=== PATIENT | male | born 1960 | race Caucasian/White ===

== ENCOUNTER 2022-02-25 10:21 | Inpatient (IN) | payer MEDICARE, SELFPAY ==
[2022-02-25] VITALS (32 sets, daily range): BP systolic 78–167; BP diastolic 40–96; PULSE 75–114; RESP 8–31; TEMP 34–37.1; O2SAT 90–100; BMI 33.9; BMI 31.1
--- NOTE | ~2022-02-25 | CT_ITS ---
EXAMINATION: CT HEAD WITHOUT CONTRAST CLINICAL INFORMATION: Altered mental status, respiratory arrest COMPARISON: None TECHNIQUE: Contiguous axial imaging was performed from the skull base to vertex without intravenous administration of contrast. This CT examination was performed using dose optimization techniques as appropriate, variously including the following: *Automated exposure control *Adjustment of mA and/or kV according to patient size (this includes techniques or standardized protocols for targeted exams where dose is matched to indication/reason for exam; i.e. extremities or head) *Use of iterative reconstruction technique DLP: 2568 mGy-cm FINDINGS: There is no evidence of acute intracranial hemorrhage or territorial infarction. No abnormal mass effect or midline shift is seen. Barr to white matter differentiation is well preserved. No extra-axial fluid collections are identified. The ventricles are normal in size. There is no abnormal attenuation within the brain parenchyma. The osseous structures and soft tissues are normal. There is partial opacification and mucosal thickening of the bilateral ethmoid air cells and right maxillary sinus. The mastoid air cells are well-aerated. CT/CT head/brain wo con IMPRESSION: No acute intracranial pathology.
--- NOTE | ~2022-02-25 | CT_ITS ---
EXAMINATION: CT ANGIOGRAM CHEST CLINICAL INFORMATION: Hemoptysis at tracheostomy site COMPARISON: Chest radiograph earlier today TECHNIQUE: Multiple axial images were obtained through the chest after the administration of 70 mL of Omnipaque 350 intravenous contrast. Extensive vascular post-processing including two-dimensional and three-dimensional reformatted images were created and reviewed on an independent workstation. This CT examination was performed using dose optimization techniques as appropriate, variously including the following: *Automated exposure control *Adjustment of mA and/or kV according to patient size (this includes techniques or standardized protocols for targeted exams where dose is matched to indication/reason for exam; i.e. extremities or head) *Use of iterative reconstruction technique DLP: 647 mGy-cm VASCULAR FINDINGS: The bolus is poor. Pulmonary arteries are better opacified than the thoracic aorta and its branches. An aortic aneurysm or dissection is not seen. Three-vessel branching pattern of the arch is present with a grossly patent great vessels. No enlarged bronchial arteries are seen. No active bleeding is seen. No pseudoaneurysms are identified around the tracheostomy. Although not carried out for evaluation of the pulmonary arteries, no large central emboli are seen. Distal vessels not well evaluated secondary to poor contrast bolus and motion artifact. NONVASCULAR FINDINGS: LUNGS: Bilateral lower lobe infiltrates/collapse/consolidation is seen. Similar findings present in the right upper lobe in the suprahilar region. MEDIASTINUM: Mediastinal widening seen on chest radiograph accounted for merely by mediastinal fat. Tracheostomy is present in good position. Above the tracheostomy entry site, there is a partially imaged tract seen which appears to have a radiopaque suture around it (see bates images). VASCULAR: PLEURA: There is no pleural effusion. No pleural mass or thickening. AXILLA: No lymphadenopathy. UPPER ABDOMEN: Large fluid-filled structure present in the left renal pelvis and radha may represent left-sided hydronephrosis. A parapelvic cyst would be another alternative. CT urography would be needed to differentiate between these 2. OSSEOUS STRUCTURES: Degenerative changes present in the spine. No bony destructive lesions CT/CT angio chest aorta IMPRESSION: 1. A cause for hemorrhage around the patient's tracheostomy site has not been found and there is no evidence of any active bleeding. No pseudoaneurysms or hypertrophied bronchial arteries are detected. 2. Bilateral lower lobe collapse/consolidation with right upper lobe suprahilar infiltrate as well. 3. Possible left-sided hydronephrosis as described above. Fleischner guidelines were followed.
--- NOTE | ~2022-02-25 | CT_ITS ---
EXAMINATION: CT ABDOMEN AND PELVIS WITH CONTRAST CLINICAL INFORMATION: Respiratory arrest. COMPARISON: None TECHNIQUE: Multidetector volumetric images were obtained from the superior aspect of the liver through the pubic symphysis following administration 85 mL of Omnipaque 350 intravenous contrast. Sagittal and coronal reformatted images were obtained on the technologist's workstation. Oral contrast: No This CT examination was performed using dose optimization techniques as appropriate, variously including the following: *Automated exposure control *Adjustment of mA and/or kV according to patient size (this includes techniques or standardized protocols for targeted exams where dose is matched to indication/reason for exam; i.e. extremities or head) *Use of iterative reconstruction technique DLP: 1125 mGy-cm FINDINGS: LUNG BASES: Refer to chest CTA report for detailed findings. LIVER, GALLBLADDER, AND BILIARY TREE: Diffuse decreased hepatic attenuation without focal abnormality. No gallbladder/biliary abnormality. PANCREAS: Unremarkable. SPLEEN: Unremarkable. ADRENAL GLANDS: Small left intrarenal calcifications and left adrenal nodule measuring 1.1 cm (image 31, series 20). KIDNEYS AND URETERS: Left kidney large peripelvic cysts measuring up to 9.1 cm (image 66, series 28). Left lower pole calculus/calcification measuring 0.3 cm (image 60, series 28). Interpolar right renal cyst measuring 1.1 cm (image 73, series 20). Mild bilateral perinephric stranding. Mild bilateral hydroureteronephrosis. BLADDER: Unremarkable. GASTROINTESTINAL TRACT: The stomach, small bowel and appendix are unremarkable. The colon proximal is unremarkable. Mild diverticulosis is seen distally without surrounding abnormality. The rectum is unremarkable. Mild hazy opacification in the mesentery without significant focal fluid collection. ABDOMINAL WALL: Very small fat-containing umbilical hernia. LYMPH NODES: Mildly enlarged external iliac lymph nodes bilaterally. A sales representative facility services lymph node on the right measures 1.3 cm (image 49, series 28). Mildly prominent infrarenal retroperitoneal lymph nodes. A precaval lymph node measures 1.1 cm in short axis (image 57, series 28). VASCULAR: Moderate atherosclerosis without significant dilatation. PELVIC VISCERA: Unremarkable. OSSEOUS STRUCTURES: Mild to moderate multilevel degenerative changes including degenerative disc disease and marginal osteophyte formation. No acute or suspicious abnormality. CT/CT abdomen pelvis w con IMPRESSION: 1. No significant acute intra-abdominal/pelvic abnormality. Mild mesenteric haziness is nonspecific. No focal fluid collection. 2. Hepatic steatosis. 3. Bilateral renal cyst demonstrating benign features not requiring follow-up. Nonobstructing left intrarenal calculus/calcification. 4. Mild distal colonic diverticulosis without evidence for acute diverticulitis. 5. Mildly prominent retroperitoneal and external iliac lymph nodes are not pathologically enlarged and may be reactive. 6. Left adrenal nodule is indeterminate, but statistically likely represents an adrenal adenoma.
--- NOTE | ~2022-02-25 | XR_ITS ---
EXAMINATION: XR CHEST CLINICAL INFORMATION: Hypoxia COMPARISON: 02/25/2022 TECHNIQUE: Frontal view of the chest was obtained. FINDINGS: Lung volumes are low. Patchy opacities at the lung bases. No pleural effusion or pneumothorax. The cardiomediastinal silhouette is prominent, unchanged. XR/XR chest 1V IMPRESSION: Patchy bibasilar opacities favor atelectasis. Pneumonia not excluded.
--- NOTE | ~2022-02-25 | US_ITS ---
EXAMINATION: US VENOUS ULTRASOUND WITH DOPPLER LOWER EXTREMITY, BILATERAL CLINICAL INFORMATION: History of DVT, history of laryngeal cancer COMPARISON: None TECHNIQUE: Ultrasound of the deep veins is performed from the hip to the calf with compression sonography and color and pulse Doppler assessment. Spectral analysis with color-flow imaging is performed. FINDINGS: RIGHT: There is normal venous compression and respiratory variation and augmented flow. The visualized common femoral vein, superficial femoral vein, profunda femoral vein, popliteal vein, and the trifurcation region shows no evidence of deep venous thrombosis. There is no significant popliteal fossa cyst. Several hypoechoic, reportedly firm nodules in the calf for example measuring 2.4 x 1.2 x 2.3 cm which appear to be contiguous with varicosities. LEFT: There is normal venous compression and respiratory variation and augmented flow. The visualized common femoral vein, superficial femoral vein, profunda femoral vein, popliteal vein, and the trifurcation region shows no evidence of deep venous thrombosis. There is no significant popliteal fossa cyst. Several hypoechoic, reportedly firm nodules in the calf for example measuring 2.1 x 1.0 x 1.5 cm which appear to be contiguous with varicosities. If the patient's symptoms persist, followup ultrasound in 5 days 7 days might be of value to exclude proximal propagation from a non-visualized calf vein. US/US venous duplex LE BI IMPRESSION: Several hypoechoic, reportedly from nodules in the bilateral calves measuring up to 2.4 cm in the right and 2.1 cm on the left, which on cine images appear to be contiguous with varicosities suggesting thrombosed superficial varicose veins, however recommend correlation with clinical exam and given malignancy consider short interval follow-up subsequent treatment to assess for resolution stability as another differential consideration could include lymph nodes. No DVT demonstrated in the bilateral lower extremity.
--- NOTE | ~2022-02-25 | XR_ITS ---
EXAMINATION: XR CHEST CLINICAL INFORMATION: Respiratory distress COMPARISON: None TECHNIQUE: Frontal view of the chest was obtained. FINDINGS: Heart size appears within normal limits given supine position. Mediastinum appears slightly widened which may also be secondary to supine position. Some bibasilar coarse reticulonodular markings are present, right greater than left, suspect chronic but no priors are available no lung masses, large effusion, consolidations or pneumothorax. XR/XR chest 1V IMPRESSION: No definite acute intrathoracic disease. Mediastinum appears slightly widened I suspect secondary to supine position.
--- NOTE | ~2022-02-25 | XR_ITS ---
EXAMINATION: XR CHEST CLINICAL INFORMATION: Severe hypoxemia COMPARISON: Previous chest x-moraima 02/28/2022 and chest CTA 02/25/2022 TECHNIQUE: Frontal view of the chest was obtained. FINDINGS: The cardiac and mediastinal contours are stable. There is bibasilar atelectasis or small infiltrates. This appears slightly improved from yesterday's exam. The lungs are otherwise clear. There is no pleural effusion or pneumothorax. There are degenerative changes of the spine. XR/XR chest 1V IMPRESSION: Improving atelectasis or small infiltrates at the lung bases
--- NOTE | ~2022-02-25 | CT_ITS ---
EXAMINATION: CT SOFT TISSUE NECK WITH CONTRAST CLINICAL INFORMATION: Trach valve. Hemoptysis a tracheostomy site described on the corresponding chest CTA. COMPARISON: CTA chest 02/25/2022. TECHNIQUE: Following the intravenous administration of 60 mL of Omnipaque 350 intravenous contrast, helical imaging was performed in the axial plane with generation of coronal and sagittal reformatted images. This CT examination was performed using dose optimization techniques as appropriate, variously including the following: *Automated exposure control *Adjustment of mA and/or kV according to patient size (this includes techniques or standardized protocols for targeted exams where dose is matched to indication/reason for exam; i.e. extremities or head) *Use of iterative reconstruction technique FINDINGS: A tracheostomy tube remains in place. This study is not diagnostic in assessing for sources of bleeding at the tracheostomy site as it is not an arterial phase CTA of the neck. There is edema and hematoma along the periphery of the tracheostomy insertion as well as a few small foci of subcutaneous gas. Stable soft tissue thickening along the periphery of the trachea below the tracheostomy tube resulting in narrowing of the trachea in this location. The parotid glands are homogeneous in attenuation. The submandibular glands are normal. The thyroid gland is normal. Postoperative findings status post total laryngectomy and neopharynx formation. Nonspecific soft tissue thickening along the periphery of the neopharynx and nonspecific edema dorsal to the neopharynx. Findings may be posttreatment related. Comparison to any outside imaging if available would be helpful in further assessment. The parapharyngeal fat is preserved. The carotid sheath vasculature opacify normally. There is a nonspecific rounded 1.2 cm long transaxial dimension lymph node within level IIA on the left. Given rounded morphology and history of total laryngectomy, consider PET to exclude a metastatic lymph node. Dependent atelectasis within the imaged lungs. The mastoid air cells and visualized portions of the paranasal sinuses are well-aerated. Multilevel cervical spondylosis including a disc osteophyte complex at C3-C4 resulting in suspected severe central canal stenosis and mass effect on the cervical spinal cord that can be correlated for clinical signs of cervical myelopathy and follow-up with MRI of the cervical spine as clinically indicated. The imaged portions of the brain parenchyma are unremarkable. CT/CT soft tissue neck w con IMPRESSION: - A tracheostomy tube remains in place. This study is not diagnostic in assessing for sources of bleeding at the tracheostomy site as it is not an arterial phase CTA of the neck. There is edema and hematoma along the periphery of the tracheostomy insertion as well as a few small foci of subcutaneous gas. Stable soft tissue thickening along the periphery of the trachea below the tracheostomy tube resulting in narrowing of the trachea in this location. - Postoperative findings status post total laryngectomy and neopharynx formation. Nonspecific soft tissue thickening along the periphery of the neopharynx and nonspecific edema dorsal to the neopharynx. Findings may be posttreatment related. Comparison to any outside imaging if available would be helpful in further assessment. - There is a nonspecific rounded 1.2 cm long transaxial dimension lymph node within level IIA on the left. Given rounded morphology and history of total laryngectomy, consider PET to exclude a metastatic lymph node. - Multilevel cervical spondylosis including a disc osteophyte complex at C3-C4 resulting in suspected severe central canal stenosis and mass effect on the cervical spinal cord that can be correlated for clinical signs of cervical myelopathy and follow-up with MRI of the cervical spine as clinically indicated.
[2022-02-25] MEDS: fentaNYL citrate/PF 100 MCG/2 ML VIAL 75 MCG IVPUSH (10:25)
[2022-02-25] MEDS: fentaNYL citrate/PF 100 MCG/2 ML VIAL 50 MCG IVPUSH (10:27)
--- NOTE | 2022-02-25 10:31 | ECG_ITS ---
Test Reason : fall Blood Pressure : / mmHG Vent. Rate : 100 BPM Atrial Rate : 100 BPM P-R Int : 176 ms QRS Dur : 100 ms QT Int : 372 ms P-R-T Axes : 037 -44 080 degrees QTc Int : 479 ms Normal sinus rhythm Left axis deviation Low voltage QRS Inferior infarct , age undetermined Abnormal ECG No previous ECGs available Referred By: Marii Chew Electronically Signed By:Rohith Diop
[2022-02-25] MEDS: Midazolam HCl/PF 2 MG/2 ML VIAL IVPUSH ×2 (10:35→18:11)
[2022-02-25] MEDS: Rocuronium Bromide 50 MG/5 ML VIAL IVPUSH (10:37)
--- NOTE | 2022-02-25 11:03 | PC.NURSE ---
PT BECAME ASYSTOLIC AT 1037 CPR WAS INITATED. SEE RESUSCITATION REPORT ROSC OBTAINED AT 1047
--- NOTE | 2022-02-25 11:12 | PC.NURSE ---
Pt received 75mcg fentanyl at 1025 Pt received 50mcg fentanyl @1027. Pt received 2mg versed @ 1035 Pt received 50 rocoronium @ 1037 all per verbal orders from Dr. Barth.
[2022-02-25 11:22] LABS: Hematocrit 43.2 % (42.0-52.0); Hemoglobin 13.5 g/dl (14.0-18.0); Mean Corpuscular HGB Conc 31.3 g/dl (31.0-36.0); Mean Corpuscular Hemoglobin 31.8 pg (27.0-33.0); Mean Corpuscular Volume 101.6 fL (80.0-98.0); Mean Platelet Volume 9.1 fL (9.4-12.4); Platelet Count 336 X10*3/uL (160-400); Red Blood Count 4.25 X10*6/uL (4.60-5.80); Red Cell Distribution Width 12.7 % (11.0-16.0); White Blood Count 23.1 X10*3/uL (4.8-10.8)
[2022-02-25 11:32] LABS: Ammonia 101 umol/L (13-55)
[2022-02-25 11:34] LABS: Lactic Acid 12.3 mmol/L (0.5-2.0)
[2022-02-25] MEDS: Piperacillin Sodium/Tazobactam 3.375 GM in 0.9 % Sodium Chloride 50 ML IV (11:34)
[2022-02-25 11:38] LABS: Acetaminophen LAB < 1 mcg/mL (<30); Alanine Aminotransferase 25 U/L (0-40); Albumin Level 3.6 g/dL (3.5-5.0); Alkaline Phosphatase 141 U/L (39-117); Anion Gap 23 (12-20); Aspartate Amino Transferase 35 U/L (5-37); Bilirubin Total 0.4 mg/dL (0.0-1.0); Blood Urea Nitrogen 9 mg/dL (9-16); Calcium 8.4 mg/dL (8.4-10.2); Carbon Dioxide 15 mmol/L (22-29); Chloride 100 mmol/L (96-108); Creatinine Clr Calc Pharmacy 100.3; Estimated Glomerular Filt Rate > 60; Glucose Random 224 mg/dL (60-115); Magnesium 2.8 mg/dL (1.6-2.6); Potassium 3.3 mmol/L (3.3-5.1); Salicylate < 5.0 mg/dL (15-30); Sodium 135 mmol/L (135-145); Total Protein 6.4 g/dL (6.5-8.0)
[2022-02-25 11:41] LABS: Troponin-I High Sensitivity 8.9 ng/L (<3.5-35.0)
--- NOTE | 2022-02-25 11:41 | ED_ITS ---
HPI - SOB/Dyspnea General Chief Complaint: Dyspnea Stated Complaint: resp distress/ lost of blood Time Seen by Provider: 02/25/22 10:31 Source: family and EMS Mode of arrival: EMS Limitations: other (severe respiratory distress) History of Present Illness HPI Narrative: 61 yo male with hx of DVT on eliquis, laryngeal cancer s/p radiation/surgery with speaking valve - gets mucous sometimes and uses a brush or coughs hard. Reportedly was home alone with son when son heard banging in the bathroom. Patient was found without his neck piece in place and the bathroom looks like a massacre . EMS notes clots and at least 1L of blood all over the floor. EMS put in 6.0 ETT and bagged the patient - pulse and BP in place for the duration of the ride. Patient minimally responsive on arrival to ED with sats in 60s and agitated thrashing. MD elicited complaint: shortness of breath (hemoptysis, respiratory arrest) Pertinent past history: tracheostomy (per EMS) Onset (ago): unknown Context: other (hemorrhage from trach site - massive per EMS and ) Timing: progressively worsening Severity: severe Relieving factors: other (EMS placed 6.0 ETT en route) Known history of: DVT and other (stoma) Associated symptoms: hemoptysis Treatment prior to arrival: oxygen and other (BVM and 6.0 ETT) Related Data Home Medications Medication Instructions Recorded Confirmed amlodipine 10 mg tablet 1 tab PO DAILY 02/25/22 02/25/22 apixaban 5 mg tablet (Eliquis) 1 tab PO BID 02/25/22 02/25/22 doxazosin 2 mg tablet 1 tab PO DAILY 02/25/22 02/25/22 gabapentin 100 mg capsule 1 cap PO TID 02/25/22 02/25/22 ipratropium bromide 42 mcg (0.06 2 spray intranasal TID PRN Allergy 02/25/22 02/25/22 %) nasal spray Symptoms levothyroxine 75 mcg tablet 1 tab PO DAILY 02/25/22 02/25/22 oxycodone 10 mg tablet 10 mg PO 7XD PRN Pain 02/25/22 02/25/22 Allergies Allergy/AdvReac Type Severity Reaction Status Date / Time peanut [PEANUTS] Allergy Severe ANGIOEDEMA Unverified 05/08/20 15:32 piperacillin [From Zosyn] Allergy Rash Verified 02/25/22 13:06 tazobactam [From Zosyn] Allergy Rash Verified 02/25/22 13:06 Review of Systems 2 Review of Systems: ROS unable to be obtained due to severe respiratory distress PMFSH Past Medical History Attestation statement: The following information was validated with the patient. Medical History (Updated 02/25/22 @ 14:50 by Rito Geller MD) DVT (deep venous thrombosis) HTN (hypertension) Hypothyroidism Laryngeal cancer Social History Social History (Updated 02/25/22 @ 11:51 by Gabrielle Barth DO) Patient Tobacco Use Status: Tobacco use Unknown Advance Directives: No Physical Exam Vital Signs: Vital Signs: Last Vital Signs Temp 96.3 F L 02/25/22 14:28 Pulse 95 02/25/22 14:28 Resp 14 02/25/22 14:28 BP 104/71 02/25/22 14:28 Pulse Ox 96 02/25/22 14:28 O2 Del Method 02/25/22 14:28 FiO2 85 02/25/22 11:52 BMI result Body Mass Index 31.1 Appearance: Obtunded, thrashing around, Moderate acute distress. Eyes: Pupils equal, round and reactive to light. sluggish 2mm ENT: Pharynx clear fluids noted Neck: fresh blood noted at stoma but no active bleeding seen, large stoma present with 6.[address], blood in ETT CVS: Normal heart rate and rhythm. Pulses normal. Respiratory: Severe respiratory distress, being bagged then intermittent agonal breathing Abdomen: Soft and obese Skin: Skin cold pale and diaphoretic Extremities: No lower extremity edema. Mottled and cyanotic Neuro: Thrashing around, not following commands Course Course Course Narrative: on arrival ETT from EMS confirmed with fiberoptic scope chuy seen at end of tube patient was thrashing around had 6.[address] sats remained 60s since arrival and RT noted it was difficult to bag, patient was being held down due to concerns for him reaching at tube EMS was holding the patient's legs down on ED stretcher, it was decided to give fentanyl 75mcg to help patient to calm down - no response to medication. Patient continued agitation, repeat fentanyl/versed, airway in place with need to switch over to more secure airway given peristent hypoxia despite bagging by RT so patient underwent RSI with rocuronium. Patient went into PEA arrest - approx 4 cycles of CPR with ROSC achieved, had VFIB on US after 1 shock 200J (300 amio) patient had ROSC, during code patient's hypoxia improved significantly with saturations up to 80s and blood was infusing at that time as well. Fiberoptic scope and bougie utilized during procedure, surgery at bedside if needed. at bedside and aware states FULL CODE< had CPR done by her last year CT scans pending lactic acidosis due to profound hypoxia and not infection or severe sepsis as well as post cardiac arrest and medications on levophed drip persistently low BPs post arrest and medications, more awake fentanyl drip ordered for CT scan 2 units of blood infused patient is obese IBW = 78kg 30cc/kg bolus = 2340 hives post zosyn - pepcid and benadryl ordered awake and following commands - seems to be neuro intact BP improving admit to ICU MDM - SOB/Dyspnea MDM Narrative Medical decision making narrative: 61 yo male with hx of DVT on eliquis, laryngeal cancer s/p radiation/surgery with speaking valve here with respiratory distress and massive hemoptysis on DOAC. At this time he is out of control and we cannot secure his airway will sedate patient and attempt to replace the airway as well as obtain labs, likely transfuse 2 units given eliquis and reported massive hemoptysis by EMS and patient. Hx of issues with mucous secretions and uses a brush. Bleeding has slowed down in the ED and I do not appreciate further hemoptysis using fiberoptic scope on glidescope camera Lab Data Result diagrams: 02/25/22 13:20 02/25/22 11:14 Labs: Lab Results 02/25/22 02/25/22 02/25/22 Range/Units 11:14 11:14 11:14 WBC 23.1 H (4.8-10.8) X10*3/uL RBC 4.25 L (4.60-5.80) X10*6/uL Hgb 13.5 L (14.0-18.0) g/dl Hct 43.2 (42.0-52.0) % MCV 101.6 H (80.0-98.0) fL MCH 31.8 (27.0-33.0) pg MCHC 31.3 (31.0-36.0) g/dl RDW 12.7 (11.0-16.0) % Plt Count 336 (160-400) X10*3/uL MPV 9.1 L (9.4-12.4) fL Immature Gran % (Auto) Cancelled Neut % (Auto) Cancelled Lymph % (Auto) Cancelled [place] % (Auto) Cancelled Eos % (Auto) Cancelled Baso % (Auto) Cancelled Lymph # (Auto) Cancelled [place] # (Auto) Cancelled Eos # (Auto) Cancelled Baso # (Auto) Cancelled Abs Immat Gran (auto) Cancelled Absolute Neuts (auto) Cancelled Absolute Nucleated RBC 0.000 (0.0-0.012) X10*3/uL Nucleated RBC % (auto) 0.0 (0.0-0.2) /100WBC Neutrophils % (Manual) 78 H (45-73) % Band Neutrophils % 7 H (3-5) % Lymphocytes % (Manual) 8 L (20-40) % Monocytes % (Manual) 2 (2-11) % Metamyelocytes % 3 % Myelocytes % 2 % Abs Neuts (Manual) 19.6 H (2.0-8.3) X10*3/uL Lymphocytes # (Manual) 1.8 (1.2-4.9) X10*3/uL Monocytes # (Manual) 0.5 (0.1-1.2) X10*3/uL Metamyelocytes # 0.7 X10*3/uL Myelocytes # 0.5 X10*/uL Platelet Estimate NORMAL (NORMAL) Plt Morphology Comment NORMAL RBC Morphology NOTED Macrocytosis 1+ (5-14) /OIF Leslie Cells 3+ (>5) /OIF Acanthocytes (Spur) 3+ (>5) /OIF Sodium 135 (135-145) mmol/L Potassium 3.3 (3.3-5.1) mmol/L Chloride 100 (96-108) mmol/L Carbon Dioxide 15 L (22-29) mmol/L Anion Gap 23 H (12-20) BUN 9 (9-16) mg/dL Creatinine 0.94 (0.5-1.4) mg/dL Estim Creat Clear Calc 100.3 Estimated GFR > 60 Random Glucose 224 H (60-115) mg/dL Lactic Acid (0.5-2.0) mmol/L Lactic Acid F/U @ 2Hr (0.5-2.0) mmol/L Calcium 8.4 (8.4-10.2) mg/dL Magnesium 2.8 H (1.6-2.6) mg/dL Total Bilirubin 0.4 (0.0-1.0) mg/dL AST 35 (5-37) U/L ALT 25 (0-40) U/L Alkaline Phosphatase 141 H (39-117) U/L Ammonia (13-55) umol/L Troponin I High Sens (<3.5-35.0) ng/L Total Protein 6.4 L (6.5-8.0) g/dL Albumin 3.6 (3.5-5.0) g/dL Urine Color Urine Appearance Urine pH (5.0-8.0) Ur Specific [place] (1.005-1.025) Urine Protein (NEG-TRACE) MG/DL Urine Glucose (UA) (NEG) MG/DL Urine Ketones (NEG) MG/DL Urine Blood (NEG) Urine Nitrite (NEG) Ur Leukocyte Esterase (NEG) Urine RBC (0) /HPF Urine WBC (0-4) /HPF Ur Squamous Epith Cells /LPF Urine Bacteria /LPF Epithelial Casts /LPF Hyaline Casts /LPF Granular Casts /LPF Salicylates < 5.0 L (15-30) mg/dL Urine Opiates Screen (Not Detect) Urine Fentanyl Screen (Not Detect) Acetaminophen < 1 (<30) mcg/mL Ur Barbiturates Screen (Not Detect) Ur Phencyclidine Scrn (Not Detect) Ur Amphetamines Screen (Not Detect) U Benzodiazepines Scrn (Not Detect) Urine Cocaine Screen (Not Detect) U Marijuana (THC) Screen (Not Detect) COVID-19 ([facility]) (Negative) COVID-19 Clin Com Influenza Type A (VALENTIN) (Negative) Influenza Type B (VALENTIN) (Negative) Influenza A & B Note Blood Type A Positive Antibody Screen NEGATIVE Crossmatch See Detail 02/25/22 02/25/22 02/25/22 Range/Units 11:14 11:14 11:14 WBC (4.8-10.8) X10*3/uL RBC (4.60-5.80) X10*6/uL Hgb (14.0-18.0) g/dl Hct (42.0-52.0) % MCV (80.0-98.0) fL MCH (27.0-33.0) pg MCHC (31.0-36.0) g/dl RDW (11.0-16.0) % Plt Count (160-400) X10*3/uL MPV (9.4-12.4) fL Immature Gran % (Auto) Neut % (Auto) Lymph % (Auto) [place] % (Auto) Eos % (Auto) Baso % (Auto) Lymph # (Auto) [place] # (Auto) Eos # (Auto) Baso # (Auto) Abs Immat Gran (auto) Absolute Neuts (auto) Absolute Nucleated RBC (0.0-0.012) X10*3/uL Nucleated RBC % (auto) (0.0-0.2) /100WBC Neutrophils % (Manual) (45-73) % Band Neutrophils % (3-5) % Lymphocytes % (Manual) (20-40) % Monocytes % (Manual) (2-11) % Metamyelocytes % % Myelocytes % % Abs Neuts (Manual) (2.0-8.3) X10*3/uL Lymphocytes # (Manual) (1.2-4.9) X10*3/uL Monocytes # (Manual) (0.1-1.2) X10*3/uL Metamyelocytes # X10*3/uL Myelocytes # X10*/uL Platelet Estimate (NORMAL) Plt Morphology Comment RBC Morphology Macrocytosis /OIF Leslie Cells /OIF Acanthocytes (Spur) /OIF Sodium (135-145) mmol/L Potassium (3.3-5.1) mmol/L Chloride (96-108) mmol/L Carbon Dioxide (22-29) mmol/L Anion Gap (12-20) BUN (9-16) mg/dL Creatinine (0.5-1.4) mg/dL Estim Creat Clear Calc Estimated GFR Random Glucose (60-115) mg/dL Lactic Acid 12.3 H* (0.5-2.0) mmol/L Lactic Acid F/U @ 2Hr (0.5-2.0) mmol/L Calcium (8.4-10.2) mg/dL Magnesium (1.6-2.6) mg/dL Total Bilirubin (0.0-1.0) mg/dL AST (5-37) U/L ALT (0-40) U/L Alkaline Phosphatase (39-117) U/L Ammonia 101 H (13-55) umol/L Troponin I High Sens 8.9 (<3.5-35.0) ng/L Total Protein (6.5-8.0) g/dL Albumin (3.5-5.0) g/dL Urine Color Urine Appearance Urine pH (5.0-8.0) Ur Specific [place] (1.005-1.025) Urine Protein (NEG-TRACE) MG/DL Urine Glucose (UA) (NEG) MG/DL Urine Ketones (NEG) MG/DL Urine Blood (NEG) Urine Nitrite (NEG) Ur Leukocyte Esterase (NEG) Urine RBC (0) /HPF Urine WBC (0-4) /HPF Ur Squamous Epith Cells /LPF Urine Bacteria /LPF Epithelial Casts /LPF Hyaline Casts /LPF Granular Casts /LPF Salicylates (15-30) mg/dL Urine Opiates Screen (Not Detect) Urine Fentanyl Screen (Not Detect) Acetaminophen (<30) mcg/mL Ur Barbiturates Screen (Not Detect) Ur Phencyclidine Scrn (Not Detect) Ur Amphetamines Screen (Not Detect) U Benzodiazepines Scrn (Not Detect) Urine Cocaine Screen (Not Detect) U Marijuana (THC) Screen (Not Detect) COVID-19 ([facility]INE) (Negative) COVID-19 Clin Com Influenza Type A (VALENTIN) (Negative) Influenza Type B (VALENTIN) (Negative) Influenza A & B Note Blood Type Antibody Screen Crossmatch 02/25/22 02/25/22 02/25/22 Range/Units 11:14 11:14 13:20 WBC 23.6 H (4.8-10.8) X10*3/uL RBC 4.69 (4.60-5.80) X10*6/uL Hgb 15.0 (14.0-18.0) g/dl Hct 45.0 (42.0-52.0) % MCV 95.9 D (80.0-98.0) fL MCH 32.0 (27.0-33.0) pg MCHC 33.3 (31.0-36.0) g/dl RDW 13.0 (11.0-16.0) % Plt Count 338 (160-400) X10*3/uL MPV 9.1 L (9.4-12.4) fL Immature Gran % (Auto) Neut % (Auto) Lymph % (Auto) [place] % (Auto) Eos % (Auto) Baso % (Auto) Lymph # (Auto) [place] # (Auto) Eos # (Auto) Baso # (Auto) Abs Immat Gran (auto) Absolute Neuts (auto) Absolute Nucleated RBC 0.000 (0.0-0.012) X10*3/uL Nucleated RBC % (auto) 0.0 (0.0-0.2) /100WBC Neutrophils % (Manual) (45-73) % Band Neutrophils % (3-5) % Lymphocytes % (Manual) (20-40) % Monocytes % (Manual) (2-11) % Metamyelocytes % % Myelocytes % % Abs Neuts (Manual) (2.0-8.3) X10*3/uL Lymphocytes # (Manual) (1.2-4.9) X10*3/uL Monocytes # (Manual) (0.1-1.2) X10*3/uL Metamyelocytes # X10*3/uL Myelocytes # X10*/uL Platelet Estimate (NORMAL) Plt Morphology Comment RBC Morphology Macrocytosis /OIF [place] Cells /OIF Acanthocytes (Spur) /OIF Sodium (135-145) mmol/L Potassium (3.3-5.1) mmol/L Chloride (96-108) mmol/L Carbon Dioxide (22-29) mmol/L Anion Gap (12-20) BUN (9-16) mg/dL Creatinine (0.5-1.4) mg/dL Estim Creat Clear Calc Estimated GFR Random Glucose (60-115) mg/dL Lactic Acid (0.5-2.0) mmol/L Lactic Acid F/U @ 2Hr (0.5-2.0) mmol/L Calcium (8.4-10.2) mg/dL Magnesium (1.6-2.6) mg/dL Total Bilirubin (0.0-1.0) mg/dL AST (5-37) U/L ALT (0-40) U/L Alkaline Phosphatase (39-117) U/L Ammonia (13-55) umol/L Troponin I High Sens (<3.5-35.0) ng/L Total Protein (6.5-8.0) g/dL Albumin (3.5-5.0) g/dL Urine Color Urine Appearance Urine pH (5.0-8.0) Ur Specific [place] (1.005-1.025) Urine Protein (NEG-TRACE) MG/DL Urine Glucose (UA) (NEG) MG/DL Urine Ketones (NEG) MG/DL Urine Blood (NEG) Urine Nitrite (NEG) Ur Leukocyte Esterase (NEG) Urine RBC (0) /HPF Urine WBC (0-4) /HPF Ur Squamous Epith Cells /LPF Urine Bacteria /LPF Epithelial Casts /LPF Hyaline Casts /LPF Granular Casts /LPF Salicylates (15-30) mg/dL Urine Opiates Screen (Not Detect) Urine Fentanyl Screen (Not Detect) Acetaminophen (<30) mcg/mL Ur Barbiturates Screen (Not Detect) Ur Phencyclidine Scrn (Not Detect) Ur Amphetamines Screen (Not Detect) U Benzodiazepines Scrn (Not Detect) Urine Cocaine Screen (Not Detect) U Marijuana (THC) Screen (Not Detect) COVID-19 ([facility]INE) Negative (Negative) COVID-19 Clin Com See Note Influenza Type A (VALENTIN) Negative (Negative) Influenza Type B (VALENTIN) Negative (Negative) Influenza A & B Note See Note Blood Type Antibody Screen Crossmatch 02/25/22 02/25/22 02/25/22 Range/Units 13:28 13:39 13:39 WBC (4.8-10.8) X10*3/uL RBC (4.60-5.80) X10*6/uL Hgb (14.0-18.0) g/dl Hct (42.0-52.0) % MCV (80.0-98.0) fL MCH (27.0-33.0) pg MCHC (31.0-36.0) g/dl RDW (11.0-16.0) % Plt Count (160-400) X10*3/uL MPV (9.4-12.4) fL Immature Gran % (Auto) Neut % (Auto) Lymph % (Auto) [place] % (Auto) Eos % (Auto) Baso % (Auto) Lymph # (Auto) [place] # (Auto) Eos # (Auto) Baso # (Auto) Abs Immat Gran (auto) Absolute Neuts (auto) Absolute Nucleated RBC (0.0-0.012) X10*3/uL Nucleated RBC % (auto) (0.0-0.2) /100WBC Neutrophils % (Manual) (45-73) % Band Neutrophils % (3-5) % Lymphocytes % (Manual) (20-40) % Monocytes % (Manual) (2-11) % Metamyelocytes % % Myelocytes % % Abs Neuts (Manual) (2.0-8.3) X10*3/uL Lymphocytes # (Manual) (1.2-4.9) X10*3/uL Monocytes # (Manual) (0.1-1.2) X10*3/uL Metamyelocytes # X10*3/uL Myelocytes # X10*/uL Platelet Estimate (NORMAL) Plt Morphology Comment RBC Morphology Macrocytosis /OIF Leslie Cells /OIF Acanthocytes (Spur) /OIF Sodium (135-145) mmol/L Potassium (3.3-5.1) mmol/L Chloride (96-108) mmol/L Carbon Dioxide (22-29) mmol/L Anion Gap (12-20) BUN (9-16) mg/dL Creatinine (0.5-1.4) mg/dL Estim Creat Clear Calc Estimated GFR Random Glucose (60-115) mg/dL Lactic Acid (0.5-2.0) mmol/L Lactic Acid F/U @ 2Hr 5.6 H* (0.5-2.0) mmol/L Calcium (8.4-10.2) mg/dL Magnesium (1.6-2.6) mg/dL Total Bilirubin (0.0-1.0) mg/dL AST (5-37) U/L ALT (0-40) U/L Alkaline Phosphatase (39-117) U/L Ammonia (13-55) umol/L Troponin I High Sens (<3.5-35.0) ng/L Total Protein (6.5-8.0) g/dL Albumin (3.5-5.0) g/dL Urine Color YELLOW Urine Appearance HAZY Urine pH 6.0 (5.0-8.0) Ur Specific [place] 1.020 (1.005-1.025) Urine Protein 1+ H (NEG-TRACE) MG/DL Urine Glucose (UA) 100 H (NEG) MG/DL Urine Ketones NEG (NEG) MG/DL Urine Blood 3+ H (NEG) Urine Nitrite NEG (NEG) Ur Leukocyte Esterase NEG (NEG) Urine RBC 15-29 H (0) /HPF Urine WBC 1-4 (0-4) /HPF Ur Squamous Epith Cells 1+ /LPF Urine Bacteria 1+ /LPF Epithelial Casts 1-4 /LPF Hyaline Casts 1-4 /LPF Granular Casts 5-9 /LPF Salicylates (15-30) mg/dL Urine Opiates Screen POSITIVE H (Not Detect) Urine Fentanyl Screen POSITIVE H (Not Detect) Acetaminophen (<30) mcg/mL Ur Barbiturates Screen Not Detected (Not Detect) Ur Phencyclidine Scrn Not Detected (Not Detect) Ur Amphetamines Screen Not Detected (Not Detect) U Benzodiazepines Scrn POSITIVE H (Not Detect) Urine Cocaine Screen Not Detected (Not Detect) U Marijuana (THC) Screen POSITIVE H (Not Detect) COVID-19 ([facility]) (Negative) COVID-19 Clin Com Influenza Type A (VALENTIN) (Negative) Influenza Type B (VAL[facility]IN) (Negative) Influenza A & B Note Blood Type Antibody Screen Crossmatch ECG Data Attestation: I personally reviewed and interpreted this ECG as follows: ECG interpretation date: 02/25/22 ECG interpretation time: 12:24 Interpretation: Rate: 100 Rhythm: sinus tach [place]: left Normal P waves. Normal HAZEL. widened QRS complex. ST T wave : no DANNI, nonspecific, slight depression V2-V3 qTC: prolonged prior studies: artifact noted no priors The study has been interpreted contemporaneously by me. . Procedures Intubation Time out performed: Yes sedative: Fentanyl Mg Given: 75 paralytic: Rocuronium Mg Given: 50 Laryngoscope: fiber optic video scope Assist Device Used: fiber optic device ET Tube Size: other (6.0 trach) Tube Secured Location: other (stoma) Tube Placement Confirmation: equal breath sounds bilaterally and confirmation by capnometry Patient Tolerated Procedure: well and no complications Intubation Complications: none Additional Comments: EMS tube changed over bougie with fiberoptic device confirming placement chuy noted via scope no active bleeding seen during procedure Critical Care Time Critical Care Time Critical Care Time: Yes Total Critical Care Time: 90 Attestation: repeat assessments, emergent bedside interventions for hemoptysis, airway manag ement, trach placement, discussion with I attest to this time spent taking care of the patient Discharge Plan Discharge Clinical Impression: Respiratory arrest, Massive hemoptysis, Acidosis, lactic, Cardiac arrest Patient Disposition: Admitted As Inpatient
[2022-02-25 11:42] LABS: Band Neutrophils Percent 7 % (3-5); Lymphocytes Absolute Manual 1.8 X10*3/uL (1.2-4.9); Lymphocytes Percent Manual 8 % (20-40); Metamyelocytes Absolute 0.7 X10*3/uL; Metamyelocytes Percent 3 %; Monocytes Absolute Manual 0.5 X10*3/uL (0.1-1.2); Monocytes Percent Manual 2 % (2-11); Myelocytes Absolute 0.5 X10*/uL; Myelocytes Percent 2 %; Neutrophils Absolute Manual 19.6 X10*3/uL (2.0-8.3); Neutrophils Percent Manual 78 % (45-73)
[2022-02-25 11:43] LABS: Macrocytosis 1+ (5-14) /OIF; Platelet Estimate NORMAL (NORMAL); Platelet Morphology Comment NORMAL; RBC Morphology NOTED
[2022-02-25 11:44] LABS: Acanthocytes 3+ (>5) /OIF; Burr Cells 3+ (>5) /OIF
--- NOTE | 2022-02-25 11:45 | PC.NURSE ---
RN aware POC [id number]
[2022-02-25 12:01] LABS: Influenza A Negative (Negative); Influenza B2 Negative (Negative)
[2022-02-25 12:02] LABS: COVID-19 Test Negative (Negative); IDNOW Serial# 16C4AD1C
[2022-02-25] MEDS: fentaNYL citrate/NS 1,000 MCG/100 ML PLAST..BAG 2.5 MCG IVCONT (12:09)
[2022-02-25] MEDS: iohexoL 350 MG/ML 100 ML INFUS..BTL IV ×2 (12:41→22:29)
[2022-02-25] MEDS: Lactated Ringers 1,000 ML 999 ML IV ×2 (12:50)
--- NOTE | 2022-02-25 12:52 | PHA.MEDREC ---
Pharmacy Consult ? Medication Reconciliation Pharmacy has completed the medication reconciliation. Spoke with to confirm medications. Kala Camejo, NikoD
[2022-02-25] MEDS: Famotidine/PF 20 MG/2 ML VIAL IVPUSH (13:11)
[2022-02-25] MEDS: diphenhydrAMINE HCL 50 MG/ML VIAL 25 MG IVPUSH (13:11)
[2022-02-25 13:18] LABS: Reflex Lactate? Lactic Acid Added
[2022-02-25 13:29] LABS: Mean Corpuscular HGB Conc 33.3 g/dl (31.0-36.0); Mean Corpuscular Volume 95.9 fL (80.0-98.0); Mean Platelet Volume 9.1 fL (9.4-12.4); Platelet Count 338 X10*3/uL (160-400); Red Blood Count 4.69 X10*6/uL (4.60-5.80); White Blood Count 23.6 X10*3/uL (4.8-10.8)
--- NOTE | 2022-02-25 13:41 | HE.PHANOTE ---
RSI kit used and waste of fentanyl recorded.
[2022-02-25 13:51] LABS: ~Lactic Acid-LAB USE ONLY 5.6 mmol/L (0.5-2.0)
[2022-02-25] MEDS: levoFLOXacin/D5W 750 MG/150 ML PIGGYBACK 100 MG IV (14:00)
[2022-02-25 14:05] LABS: ABG Base Excess -8.5 mmol/L; ABG HCO3 16 mmol/L (22-26); ABG pCO2 30 mmHg (32-45); ABG pH 7.32 (7.35-7.45); ABG pO2 149 mmHg (83-108)
[2022-02-25 14:12] LABS: Appearance Urine HAZY; Color Urine YELLOW; Glucose Urine UA 100 MG/DL (NEG); Leukocyte Esterase Urine NEG (NEG); Nitrite Urine NEG (NEG); UACC Culture Trigger NO; Urine Blood 3+ (NEG); Urine Ketones NEG (NEG); Urine Protein 1+ MG/DL (NEG-TRACE)
[2022-02-25 14:16] LABS: Amphetamine Screen Urine Not Detected (Not Detect); Barbiturates, Urine Not Detected (Not Detect); Benzodiazepines Screen Urine POSITIVE (Not Detect); Cannabinoid Screen Urine POSITIVE (Not Detect); Cocaine Screen Urine Not Detected (Not Detect); Fentanyl, urine POSITIVE (Not Detect); Opiate Screen Urine POSITIVE (Not Detect); Phencyclidine Screen Urine Not Detected (Not Detect)
[2022-02-25 14:26] LABS: Squamous Epithelial Cell Urine 1+ /LPF
[2022-02-25 14:27] LABS: Bacteria Urine 1+ /LPF
--- NOTE | 2022-02-25 14:34 | PM.CCHP ---
History of Present Illness Date of Service: 02/25/22 Chief Complaint: Cardiac arrest, hemoptysis 61-year-old gentleman with underlying history of laryngeal cancer ( followed at [facility]) status post excision and radiation, with tracheal stoma and speaking valve (normally performing self-care on his stoma/speaking valve), with history of mucus plugging, also on DVT on anticoagulation admitted on 02/25/2022 after his son heard commotion when the patient was in bathroom and found patient short of breath with large amount of blood. On EMS arrival patient was noted to have hemoptysis and be significantly hypoxic. He was intubated in the field with a 6.0 tube and brought to the emergency room where he was noted to be persistently hypoxic. ET tube exchange was attempted, but patient required re-intubation further complicated by PEA cardiac arrest with ROSC after 4 rounds of CPR. Tracheostomy tube placed in the stoma and patient connected to the ventilatory support. Patient's mentation noted to be at the baseline after completion of CPR. Required initiation of other pressor support, covered with empiric broad-spectrum antibiotics, received 2 units of packed red blood cells. His CT angiogram chest did not demonstrate pulmonary hemorrhage. Patient was admitted to the intensive care unit. Review of Systems Constitutional: Constitutional: Denies daytime sleepiness, Denies excessive sweating, Denies fatigue, Denies fever(s), Denies lethargy, Denies malaise, Denies night sweats, Denies snoring and Denies weight loss Eyes: Eyes: Denies blurry vision and Denies itchy eyes ENT: Denies nasal congestion, Denies post nasal drip, Denies sinus pain, Denies sinus pressure and Denies other ( Thrush) Cardiovascular: Cardiovascular: Denies chest pain, Denies pedal edema, Reports dyspnea, Denies orthopnea and Denies paroxysmal nocturnal dyspnea Respiratory: Respiratory: Denies cough, Reports hemoptysis, Denies excessive phlegm production, Reports dyspnea, Denies snoring and Denies wheezing Gastrointestinal: Gastrointestinal: Denies abdominal pain and Denies heartburn Musculoskeletal: Musculoskeletal: Denies myalgias, Denies arthralgias and Denies joint swelling Integumentary/Breasts: Skin/Breast: Denies rash Neurologic: Denies memory loss and Denies seizure-like activity Psychiatric: Psychiatric: Denies abnormal sleep pattern, Denies anxiety and Denies memory loss Endocrine: Endocrine: Denies excessive sweating, Denies fatigue and Denies heat intolerance Hematologic/Lymphatic: Hematologic/Lymphatic: Denies easy bruising Allergic/Immunologic: Allergic/Immunologic: Denies itchy eyes, Denies seasonal rhinorrhea and Denies wheezing PMFSH Past Medical History Medical History (Updated 02/25/22 @ 14:50 by Rito Geller MD) DVT (deep venous thrombosis) HTN (hypertension) Hypothyroidism Laryngeal cancer Social History Social History (Updated 02/25/22 @ 11:51 by Gabrielle Barth DO) Patient Tobacco Use Status: Tobacco use Unknown Advance Directives: No Meds Allergies Allergy/AdvReac Type Severity Reaction Status Date / Time peanut [PEANUTS] Allergy Severe ANGIOEDEMA Unverified 05/08/20 15:32 piperacillin [From Zosyn] Allergy Rash Verified 02/25/22 13:06 tazobactam [From Zosyn] Allergy Rash Verified 02/25/22 13:06 Active Medications: Current Medications Norepinephrine Bitartrate (Levophed) 8 mg in 250 mls @ 0 mls/hr IVCONT .Q0M GUILLERMO; Protocol Last Titration: 02/25/22 14:11 Dose: 0.09 mcg/kg/min, 19.14 mls/hr Fentanyl (Sublimaze/Ns) 1,000 mcg in 100 mls @ 0 mls/hr IVCONT .Q0M GUILLERMO; Protocol Last Admin: 02/25/22 12:09 Dose: 25 mcg/hr, 2.5 mls/hr Levofloxacin (Levaquin) 750 mg in 150 mls @ 100 mls/hr IV Q24H GUILLERMO Last Admin: 02/25/22 14:00 Dose: 100 mls/hr Naloxone HCl (Naloxone Hcl 0.4 Mg/Ml Vial) 0.2 mg IVPUSH Q2M PRN PRN Reason: Excessive sedation or RR < 8 Pharmacy Consult (Consult Rx Perform Med Rec) 1 each MISCELLANE ONCE PRN PRN Reason: Consult order Home Medications Medication Instructions Recorded Confirmed Last Taken Type amlodipine 10 mg tablet 1 tab PO DAILY 02/25/22 02/25/22 Unknown History apixaban 5 mg tablet (Eliquis) 1 tab PO BID 02/25/22 02/25/22 Unknown History doxazosin 2 mg tablet 1 tab PO DAILY 02/25/22 02/25/22 Unknown History gabapentin 100 mg capsule 1 cap PO TID 02/25/22 02/25/22 Unknown History ipratropium bromide 42 mcg (0.06 2 spray intranasal TID PRN Allergy 02/25/22 02/25/22 Unknown History %) nasal spray Symptoms levothyroxine 75 mcg tablet 1 tab PO DAILY 02/25/22 02/25/22 Unknown History oxycodone 10 mg tablet 10 mg PO 7XD PRN Pain 02/25/22 02/25/22 Unknown History Physical Exam Vital Signs: Vital Signs: Last Vital Signs Temp 96.3 F L 02/25/22 14:28 Pulse 95 02/25/22 14:28 Resp 14 02/25/22 14:28 BP 104/71 02/25/22 14:28 Pulse Ox 96 02/25/22 14:28 O2 Del Method 02/25/22 14:28 FiO2 85 02/25/22 11:52 BMI result Body Mass Index 31.1 Const: General: no acute distress and alert Nutritional Appearance: not obese Orientation/consciousness: Other orientation findings ( oriented) HEENT: Head: Yes atraumatic Mouth: no other ( thrush) Throat: No postnasal drainage Eyes: General: appearance normal, both eyes and all related structures Sclerae: sclerae normal EOM: EOMs intact bilaterally Neck: Neck: Yes supple and Yes tracheostomy present ( on the vent) Lymphatic: no lymphadenopathy noted Resp: Effort & Inspection: normal respiratory effort and no use of accessory muscles Auscultation: clear to auscultation bilaterally Cardio: Rate: regular rate Rhythm: regular rhythm Heart sounds: no gallops, no murmurs and no rubs GI: Palpation (GI): Soft to palpation and Other GI palpation findings present ( nontender) Skin: General skin exam: other ( warm) Rashes: no rashes Extrem: General: No clubbing, No cyanosis, No edema and Yes pedal edema ( trace bilateral) Results Labs CBC and Chem 7: 02/25/22 13:20 02/25/22 11:14 Labs: Laboratory Results - last 24 hr 02/25/22 02/25/22 02/25/22 11:14 11:14 11:14 MCV 101.6 H MCH 31.8 MCHC 31.3 RDW 12.7 Plt Count 336 MPV 9.1 L Immature Gran % (Auto) Cancelled Neut % (Auto) Cancelled Lymph % (Auto) Cancelled [place] % (Auto) Cancelled Eos % (Auto) Cancelled Baso % (Auto) Cancelled Lymph # (Auto) Cancelled [place] # (Auto) Cancelled Eos # (Auto) Cancelled Baso # (Auto) Cancelled Abs Immat Gran (auto) Cancelled Absolute Neuts (auto) Cancelled Absolute Nucleated RBC 0.000 Nucleated RBC % (auto) 0.0 Neutrophils % (Manual) 78 H Band Neutrophils % 7 H Lymphocytes % (Manual) 8 L Monocytes % (Manual) 2 Metamyelocytes % 3 Myelocytes % 2 Abs Neuts (Manual) 19.6 H Lymphocytes # (Manual) 1.8 Monocytes # (Manual) 0.5 Metamyelocytes # 0.7 Myelocytes # 0.5 Platelet Estimate NORMAL Plt Morphology Comment NORMAL RBC Morphology NOTED Macrocytosis 1+ (5-14) Leslie Cells 3+ (>5) Acanthocytes (Spur) 3+ (>5) O2 Saturation ABG pH at Pt Temp ABG pCO2 at Pt Temp ABG pO2 at Pt Temp ABG HCO3 ABG Base Excess (Actual) Anion Gap 23 H Estim Creat Clear Calc 100.3 Estimated GFR > 60 Random Glucose 224 H Lactic Acid Lactic Acid F/U @ 2Hr Calcium 8.4 Magnesium 2.8 H Total Bilirubin 0.4 AST 35 ALT 25 Alkaline Phosphatase 141 H Ammonia Troponin I High Sens Total Protein 6.4 L Albumin 3.6 Urine Color Urine Appearance Urine pH Ur Specific [place] Urine Protein Urine Glucose (UA) Urine Ketones Urine Blood Urine Nitrite Ur Leukocyte Esterase Urine RBC Urine WBC Ur Squamous Epith Cells Urine Bacteria Epithelial Casts Hyaline Casts Granular Casts Salicylates < 5.0 L Urine Opiates Screen Urine Fentanyl Screen Acetaminophen < 1 Ur Barbiturates Screen Ur Phencyclidine Scrn Ur Amphetamines Screen U Benzodiazepines Scrn Urine Cocaine Screen U Marijuana (THC) Screen COVID-19 (VALENTINE) COVID-19 Clin Com Influenza Type A (VALENTIN) Influenza Type B (VALENTIN) Influenza A & B Note Blood Type A Positive Antibody Screen NEGATIVE Crossmatch See Detail 02/25/22 02/25/22 02/25/22 11:14 11:14 11:14 MCV MCH MCHC RDW Plt Count MPV Immature Gran % (Auto) Neut % (Auto) Lymph % (Auto) [place] % (Auto) Eos % (Auto) Baso % (Auto) Lymph # (Auto) [place] # (Auto) Eos # (Auto) Baso # (Auto) Abs Immat Gran (auto) Absolute Neuts (auto) Absolute Nucleated RBC Nucleated RBC % (auto) Neutrophils % (Manual) Band Neutrophils % Lymphocytes % (Manual) Monocytes % (Manual) Metamyelocytes % Myelocytes % Abs Neuts (Manual) Lymphocytes # (Manual) Monocytes # (Manual) Metamyelocytes # Myelocytes # Platelet Estimate Plt Morphology Comment RBC Morphology Macrocytosis [place] Cells Acanthocytes (Spur) O2 Saturation ABG pH at Pt Temp ABG pCO2 at Pt Temp ABG pO2 at Pt Temp ABG HCO3 ABG Base Excess (Actual) Anion Gap Estim Creat Clear Calc Estimated GFR Random Glucose Lactic Acid 12.3 H* Lactic Acid F/U @ 2Hr Calcium Magnesium Total Bilirubin AST ALT Alkaline Phosphatase Ammonia 101 H Troponin I High Sens 8.9 Total Protein Albumin Urine Color Urine Appearance Urine pH Ur Specific Enterprise Urine Protein Urine Glucose (UA) Urine Ketones Urine Blood Urine Nitrite Ur Leukocyte Esterase Urine RBC Urine WBC Ur Squamous Epith Cells Urine Bacteria Epithelial Casts Hyaline Casts Granular Casts Salicylates Urine Opiates Screen Urine Fentanyl Screen Acetaminophen Ur Barbiturates Screen Ur Phencyclidine Scrn Ur Amphetamines Screen U Benzodiazepines Scrn Urine Cocaine Screen U Marijuana (THC) Screen COVID-19 (VALENTINE) COVID-19 Clin Com Influenza Type A (VALENTIN) Influenza Type B (VALENTIN) Influenza A & B Note Blood Type Antibody Screen Crossmatch 02/25/22 02/25/22 02/25/22 11:14 11:14 13:20 MCV 95.9 D MCH 32.0 MCHC 33.3 RDW 13.0 Plt Count 338 MPV 9.1 L Immature Gran % (Auto) Neut % (Auto) Lymph % (Auto) [place] % (Auto) Eos % (Auto) Baso % (Auto) Lymph # (Auto) [place] # (Auto) Eos # (Auto) Baso # (Auto) Abs Immat Gran (auto) Absolute Neuts (auto) Absolute Nucleated RBC 0.000 Nucleated RBC % (auto) 0.0 Neutrophils % (Manual) Band Neutrophils % Lymphocytes % (Manual) Monocytes % (Manual) Metamyelocytes % Myelocytes % Abs Neuts (Manual) Lymphocytes # (Manual) Monocytes # (Manual) Metamyelocytes # Myelocytes # Platelet Estimate Plt Morphology Comment RBC Morphology Macrocytosis Leslie Cells Acanthocytes (Spur) O2 Saturation ABG pH at Pt Temp ABG pCO2 at Pt Temp ABG pO2 at Pt Temp ABG HCO3 ABG Base Excess (Actual) Anion Gap Estim Creat Clear Calc Estimated GFR Random Glucose Lactic Acid Lactic Acid F/U @ 2Hr Calcium Magnesium Total Bilirubin AST ALT Alkaline Phosphatase Ammonia Troponin I High Sens Total Protein Albumin Urine Color Urine Appearance Urine pH Ur Specific Enterprise Urine Protein Urine Glucose (UA) Urine Ketones Urine Blood Urine Nitrite Ur Leukocyte Esterase Urine RBC Urine WBC Ur Squamous Epith Cells Urine Bacteria Epithelial Casts Hyaline Casts Granular Casts Salicylates Urine Opiates Screen Urine Fentanyl Screen Acetaminophen Ur Barbiturates Screen Ur Phencyclidine Scrn Ur Amphetamines Screen U Benzodiazepines Scrn Urine Cocaine Screen U Marijuana (THC) Screen COVID-19 (VALENTINE) Negative COVID-19 Clin Com See Note Influenza Type A (VALENTIN) Negative Influenza Type B (VALENTIN) Negative Influenza A & B Note See Note Blood Type Antibody Screen Crossmatch 02/25/22 02/25/22 02/25/22 13:28 13:39 13:39 MCV MCH MCHC RDW Plt Count MPV Immature Gran % (Auto) Neut % (Auto) Lymph % (Auto) [place] % (Auto) Eos % (Auto) Baso % (Auto) Lymph # (Auto) [place] # (Auto) Eos # (Auto) Baso # (Auto) Abs Immat Gran (auto) Absolute Neuts (auto) Absolute Nucleated RBC Nucleated RBC % (auto) Neutrophils % (Manual) Band Neutrophils % Lymphocytes % (Manual) Monocytes % (Manual) Metamyelocytes % Myelocytes % Abs Neuts (Manual) Lymphocytes # (Manual) Monocytes # (Manual) Metamyelocytes # Myelocytes # Platelet Estimate Plt Morphology Comment RBC Morphology Macrocytosis [place] Cells Acanthocytes (Spur) O2 Saturation ABG pH at Pt Temp ABG pCO2 at Pt Temp ABG pO2 at Pt Temp ABG HCO3 ABG Base Excess (Actual) Anion Gap Estim Creat Clear Calc Estimated GFR Random Glucose Lactic Acid Lactic Acid F/U @ 2Hr 5.6 H* Calcium Magnesium Total Bilirubin AST ALT Alkaline Phosphatase Ammonia Troponin I High Sens Total Protein Albumin Urine Color YELLOW Urine Appearance HAZY Urine pH 6.0 Ur Specific [place] 1.020 Urine Protein 1+ H Urine Glucose (UA) 100 H Urine Ketones NEG Urine Blood 3+ H Urine Nitrite NEG Ur Leukocyte Esterase NEG Urine RBC 15-29 H Urine WBC 1-4 Ur Squamous Epith Cells 1+ Urine Bacteria 1+ Epithelial Casts 1-4 Hyaline Casts 1-4 Granular Casts 5-9 Salicylates Urine Opiates Screen POSITIVE H Urine Fentanyl Screen POSITIVE H Acetaminophen Ur Barbiturates Screen Not Detected Ur Phencyclidine Scrn Not Detected Ur Amphetamines Screen Not Detected U Benzodiazepines Scrn POSITIVE H Urine Cocaine Screen Not Detected U Marijuana (THC) Screen POSITIVE H COVID-19 (VALENTINE) COVID-19 Clin Com Influenza Type A (VALENTIN) Influenza Type B (VALENTIN) Influenza A & B Note Blood Type Antibody Screen Crossmatch 02/25/22 14:01 MCV MCH MCHC RDW Plt Count MPV Immature Gran % (Auto) Neut % (Auto) Lymph % (Auto) [place] % (Auto) Eos % (Auto) Baso % (Auto) Lymph # (Auto) [place] # (Auto) Eos # (Auto) Baso # (Auto) Abs Immat Gran (auto) Absolute Neuts (auto) Absolute Nucleated RBC Nucleated RBC % (auto) Neutrophils % (Manual) Band Neutrophils % Lymphocytes % (Manual) Monocytes % (Manual) Metamyelocytes % Myelocytes % Abs Neuts (Manual) Lymphocytes # (Manual) Monocytes # (Manual) Metamyelocytes # Myelocytes # Platelet Estimate Plt Morphology Comment RBC Morphology Macrocytosis Leslie Cells Acanthocytes (Spur) O2 Saturation 100.0 ABG pH at Pt Temp 7.32 L ABG pCO2 at Pt Temp 30 L ABG pO2 at Pt Temp 149 H ABG HCO3 16 L ABG Base Excess (Actual) -8.5 Anion Gap Estim Creat Clear Calc Estimated GFR Random Glucose Lactic Acid Lactic Acid F/U @ 2Hr Calcium Magnesium Total Bilirubin AST ALT Alkaline Phosphatase Ammonia Troponin I High Sens Total Protein Albumin Urine Color Urine Appearance Urine pH Ur Specific [place] Urine Protein Urine Glucose (UA) Urine Ketones Urine Blood Urine Nitrite Ur Leukocyte Esterase Urine RBC Urine WBC Ur Squamous Epith Cells Urine Bacteria Epithelial Casts Hyaline Casts Granular Casts Salicylates Urine Opiates Screen Urine Fentanyl Screen Acetaminophen Ur Barbiturates Screen Ur Phencyclidine Scrn Ur Amphetamines Screen U Benzodiazepines Scrn Urine Cocaine Screen U Marijuana (THC) Screen COVID-19 (VALENTINE) COVID-19 Clin Com Influenza Type A (VALENTIN) Influenza Type B (VALENTIN) Influenza A & B Note Blood Type Antibody Screen Crossmatch Imaging Radiologist's Impressions: Impressions Chest X-Ray 02/25/22 11:20 IMPRESSION: No definite acute intrathoracic disease. Mediastinum appears slightly widened I suspect secondary to supine position. Abdomen/Pelvis CT 02/25/22 12:47 IMPRESSION: 1. No significant acute intra-abdominal/pelvic abnormality. Mild mesenteric haziness is nonspecific. No focal fluid collection. 2. Hepatic steatosis. 3. Bilateral renal cyst demonstrating benign features not requiring follow-up. Nonobstructing left intrarenal calculus/calcification. 4. Mild distal colonic diverticulosis without evidence for acute diverticulitis. 5. Mildly prominent retroperitoneal and external iliac lymph nodes are not pathologically enlarged and may be reactive. 6. Left adrenal nodule is indeterminate, but statistically likely represents an adrenal adenoma. Chest CTA 02/25/22 12:47 IMPRESSION: 1. A cause for hemorrhage around the patient's tracheostomy site has not been found and there is no evidence of any active bleeding. No pseudoaneurysms or hypertrophied bronchial arteries are detected. 2. Bilateral lower lobe collapse/consolidation with right upper lobe suprahilar infiltrate as well. 3. Possible left-sided hydronephrosis as described above. Fleischner guidelines were followed. Head CT 02/25/22 12:47 IMPRESSION: No acute intracranial pathology. Assessment and Plan (1) Respiratory arrest: Status: Acute (2) Massive hemoptysis: Status: Acute (3) Acidosis, lactic: Status: Acute (4) Cardiac arrest: Status: Acute (5) DVT (deep venous thrombosis): Status: Acute (6) Laryngeal cancer: Status: Acute (7) Hypothyroidism: Status: Acute (8) Acute respiratory failure with hypoxia: Status: Acute Plan Assessment: 61-year-old gentleman with underlying history of laryngeal cancer status post excision and radiation with underlying tracheal stoma and speaking well for admitted with large volume hemoptysis, likely secondary to mechanical trauma on the background of anticoagulation use for underlying DVT further complicated by cardiac arrest with return of spontaneous circulation after 4 rounds of CPR and patient return to baseline mental status, but requiring placement of tracheostomy and initiation of ventilatory support. Plan: Neuro: No acute issues. patient with return to baseline mental status after CPR. Cardiac: Cardiac arrest, likely secondary to hypoxia, returned spontaneous circulation after 4 rounds of CPR. 2D echocardiogram is pending. Continue to titrate off ventilatory support as tolerated. Pulmonary: acute hypoxic respiratory failure requiring replacement of tracheostomy in the tracheal stoma initiation ventilatory support, secondary to large volume hemoptysis, likely secondary to mechanical trauma with manual clearance of stoma by the patient. Continue to titrate off ventilatory support as tolerated. Renal: No acute issues. Endo: No acute issues. Underlying hypothyroidism. GI: No acute issues. ID: Empirically covered with broad-spectrum antibiotics. Elevated lactate likely secondary to hypoxia Heme/Onc: No acute issues. Psych: No acute issues. Miscellaneous: No acute issues. Prophylaxis: compression devices, ppi Diet: nothing by mouth Critical care time spent: 60 minutes
[2022-02-25] MEDS: 0.9 % Sodium Chloride 500 ML IV (15:01)
[2022-02-25 15:31] LABS: Reflex Lactate? 2 Y
[2022-02-25 16:23] LABS: ~Lactic Acid-LAB USE ONLY 4.5 mmol/L (0.5-2.0)
[2022-02-25] MEDS: HYDROmorphone HCl 1 MG/ML SYRINGE IVPUSH (18:37)
--- NOTE | 2022-02-25 19:22 | PC.NURSE ---
1720-pt arrived to ICU 255 from ER with RN and RT. Pt very anxious when attempting to settle. Pt c/o pain in chest from CPR, Fentanyl gtt increased. RR 30-40's. 174-updated Dr. Geller and received an order for 2mg versed ivp. Noting urine leaking around baker cath. Aspirated balloon and noted 8.5ml. 1.5 ml of saline added to balloon. 1744-pt began urinated and it was streaming out around the baker. pt requested to use urinal, and received order to remove baker. 1749-Baker removed. 1814-pt continuing to have increased resp rate and work of breathing. RT called, and notified.
[2022-02-25 20:44] LABS: ABG Refer to POC result
[2022-02-25] MEDS: LORazepam 2 MG/ML VIAL 1 MG IVPUSH (21:39)
[2022-02-25] MEDS: fentaNYL citrate/NS 1,000 MCG/100 ML PLAST..BAG 20 MCG IVCONT (21:40)
[2022-02-26] VITALS (28 sets, daily range): BP systolic 102–159; BP diastolic 61–96; PULSE 63–101; RESP 12–17; TEMP 34.5–36.9; O2SAT 91–100; BMI 31.1
[2022-02-26] MEDS: fentaNYL citrate/NS 1,000 MCG/100 ML PLAST..BAG 15 MCG IVCONT (02:35)
[2022-02-26 05:26] LABS: VBG Base Excess -1.1 mmol/L; VBG HCO3 21 mmol/L (22-26); VBG pCO2 29 mmHg; VBG pH 7.46 (7.32-7.43); VBG pO2 49 mmHg
[2022-02-26 05:33] LABS: Basophils Percent Auto 0.1 % (0-2); Eosinophils Percent Auto 0.1 % (0-4); Hematocrit 36.6 % (42.0-52.0); Hemoglobin 12.5 g/dl (14.0-18.0); Imm Gran Abs Auto 0.17 X10*3/uL (0.00-0.03); Lymphocytes Absolute Auto 0.4 X10*3/uL (1.2-4.9); Lymphocytes Percent Auto 2.6 % (20-40); MANUAL DIFF FLAG SCAN; Mean Corpuscular HGB Conc 34.2 g/dl (31.0-36.0); Mean Corpuscular Hemoglobin 31.6 pg (27.0-33.0); Mean Corpuscular Volume 92.4 fL (80.0-98.0); Mean Platelet Volume 9.2 fL (9.4-12.4); Monocytes Absolute Auto 0.8 X10*3/uL (0.1-1.2); Monocytes Percent Auto 4.6 % (2-11); Neutrophils Absolute Auto 15.8 x10*3/uL (2.0-8.3); Neutrophils Percent Auto 91.6 % (45-73); Platelet Count 237 X10*3/uL (160-400); Red Blood Count 3.96 X10*6/uL (4.60-5.80); Red Cell Distribution Width 13.5 % (11.0-16.0); SCAN SMEAR FLAG 1; White Blood Count 17.2 X10*3/uL (4.8-10.8)
[2022-02-26 05:44] LABS: Venous Blood Gas Refer to POC result
[2022-02-26 05:51] LABS: Alanine Aminotransferase 30 U/L (0-40); Albumin Level 3.1 g/dL (3.5-5.0); Alkaline Phosphatase 93 U/L (39-117); Anion Gap 12 (12-20); Aspartate Amino Transferase 67 U/L (5-37); Blood Urea Nitrogen 15 mg/dL (9-16); Carbon Dioxide 25 mmol/L (22-29); Chloride 102 mmol/L (96-108); Creatinine Clr Calc Pharmacy 132.7; Estimated Glomerular Filt Rate > 60; Glucose Random 122 mg/dL (60-115); Magnesium 1.8 mg/dL (1.6-2.6); Phosphorus 3.3 mg/dL (2.7-4.5); Potassium 3.6 mmol/L (3.3-5.1); Sodium 135 mmol/L (135-145); Total Protein 5.3 g/dL (6.5-8.0)
[2022-02-26 05:55] LABS: SLIDE REVIEW VERIFIED
[2022-02-26] MEDS: Pantoprazole Sodium 40 MG/10 ML VIAL IVPUSH (06:19)
--- NOTE | 2022-02-26 07:00 | CA_ITS ---
Transthoracic Echocardiogram Patient (Last, First, Middle): Bryan Mcgee M Gender: Male Date of : 1960 Age: 61 Procedure Date: 02/26/2022 Procedure Type: Transthoracic Echocardiogram Location: ICU Height: 182.88 cm Weight: 103.87 kg BSA: 2.26 m2 Heart Rate: bpm BP: 138 / 72 mmHg Internal Combustion Engine Subassembler: TO Referring MD: Rito Geller MD Symptoms: s/p cardiac arrest Study Quality: Technically Difficult/Contrast Conclusions: - Technically limited study. - Normal left ventricular size and systolic function. The visually estimated ejection fraction is between 60-65%. - Normal right ventricular cavity size and systolic function. - Poor valvular assessment. Findings Procedure Information Contrast agent, definity, is being given per protocol without apparent complications. Left Ventricle Normal left ventricular size and systolic function. The visually estimated ejection fraction is between 60-65%. There is evidence of regional wall motion abnormalities. Diastolic function is indeterminate on the basis of available data. Right Ventricle Normal right ventricular cavity size and systolic function. Atria Both atria are normal in size. Aortic Valve The aortic valve was not well visualized. There is no aortic valve stenosis. There is no aortic valve regurgitation. Mitral Valve The mitral valve was not well visualized. Pulmonic Valve The pulmonic valve was not well visualized. Tricuspid Valve The tricuspid valve was not well visualized. Great Vessels The pulmonary artery was not well visualized. Venous The inferior vena cava was not well visualized. Pericardium/Pleural There is no evidence of pericardial effusion. Prior Study Comparison No prior study available for comparison. Measurements 2D Linear Measurements LVOT Diam: 2.40 3.0+(-)1.3 cm Mitral Valve MV Pk E: 0.69 MV PK A: 1.10 MV Decel Time: 234.00 E/A: 0.60 E'Lateral: 10.90 E'Medial: 7.07 E/E' Med: 9.70 E/E' Lat: 6.30 PHT: 69.00 MVA PHT: 3.19 Decel [place]: 2.92 Aortic Valve AoV Pk Gaston: 1.03 AoV Mn [place]: 0.73 AoV VTI: 0.20 AoV Pk Grad: 4.00 Aov Mn Grad: 2.00 VIDA Cont.VTI: 2.56 LVOT LVOT Pk [place]: 0.71 LVOT Mn [place]: 0.40 LVOT VTI: 0.11 LVOT Pk Grad: 2.00 LVOT Mn Grad: 1.00 LVOT Diam: 2.40 LVOT Area: 4.52 Diastolic Function MV Pk E: 0.69 MV Pk A: 1.10 E/A: 0.60 E'Medial: 7.07 E/E' Med: 9.70 E' Laterial: 10.90 E/E' Lat: 6.30 Right Ventricle TAPSE (mm): 19.30 TVS' Gaston: 15.10 Updated in Other Vendor System with Status of Final Rohith Diop MD electronically signed on 02/26/2022 11:21:07 PM with status of Final
--- NOTE | 2022-02-26 07:04 | P.CDIC_ITS ---
[facility] Concurrent Query Documentation Clarification: PHYSICIAN'S DOCUMENTATION REQUEST Date of Query: 02/26/22 07 Patient Name: Bryan Mcgee Admit Date: 02/25/22 Dear Doctor, A review of the medical record indicates additional documentation may be needed. Please review below and update the documentation accordingly. Risk Factors/Clinical Indicators/Treatments Per H&P 02/25/22: large volume hemoptysis, likely secondary to mechanical trauma on the background of anticoagulation use for underlying?DVT 2 ux blood transfused H/H: 13.5/43.2 then 15.0/45.0 Based on the above, please clarify in the Progress Notes if there is an associated link between the anticoagulant and the documented bleeding: * Bleeding likely related to anticoagulant * Bleeding is not likely related to anticoagulant * Other (please specify) * Unable to determine Use of terms such as suspected, likely, concern for, or probable (associated with a specific diagnosis that is being evaluated, monitored, or treated as if it exists) are acceptable and can be coded in the inpatient setting, when documented at the time of discharge. Thank you, Christy Alfonso , JADEN Extension: [phone] Please use your independent medical judgment in providing your response. THIS QUERY IS PART OF THE PERMANENT MEDICAL RECORD Provider Response: Other (Bleeding likely related to anticoagulant use) Other Diagnosis: Bleeding likely related to anticoagulant use
[2022-02-26 07:06] LABS: Glucose, Whole Blood 174 mg/dL (60-115)
[2022-02-26] MEDS: fentaNYL citrate/NS 1,000 MCG/100 ML PLAST..BAG 20 MCG IVCONT ×2 (07:17→11:57)
[2022-02-26] MEDS: HYDROmorphone HCl 1 MG/ML SYRINGE IVPUSH (08:24)
[2022-02-26] MEDS: HYDROmorphone HCl 2 MG/ML VIAL IVPUSH (11:03)
--- NOTE | 2022-02-26 11:33 | PM.CCPN ---
Subjective Subjective Date of Service: 02/26/22 Interval History: 61-year-old gentleman with underlying history of laryngeal cancer ( followed at [facility]) status post laryngectomy with neopharynx formation/transesophageal voice prosthesis (TEP) valve placement and radiation, with tracheal stoma (normally performing self-care on his stoma/speaking valve), with history of mucus plugging, also on DVT on anticoagulation admitted on 02/25/2022 after his son heard commotion when the patient was in bathroom and found patient short of breath with large amount of blood. On EMS arrival patient was noted to have hemoptysis and be significantly hypoxic. He was intubated (?through the stoma) in the field with a 6.0 tube and brought to the emergency room where he was noted to be persistently hypoxic. ET tube exchange was attempted, but patient required re-intubation further complicated by PEA cardiac arrest with ROSC after 4 rounds of CPR. Tracheostomy tube placed in the stoma and patient connected to the ventilatory support. Patient's mentation noted to be at the baseline after completion of CPR. Patient initially required vasopressor support, covered with empiric broad-spectrum antibiotics, received 2 units of packed red blood cells. His CT angiogram chest did not demonstrate pulmonary hemorrhage. Patient was admitted to the intensive care unit. No events overnight. CT neck shows TEP valve in place. Titrated off pressors, titrated down to tracheal mask. Critical Care Time (minutes): 45 Physical Exam Vital Signs: Vital Signs: Last Vital Signs Temp 98.4 F 02/26/22 10:00 Pulse 86 02/26/22 11:00 Resp 13 02/26/22 11:00 BP 140/76 H 02/26/22 11:00 Pulse Ox 92 02/26/22 11:00 O2 Del Method 02/26/22 11:00 O2 Flow Rate 10 02/26/22 11:00 FiO2 60 02/26/22 11:00 BMI result Body Mass Index 31.1 Const: General: no acute distress, alert and awake Eyes: Sclerae: sclerae normal EOM: EOMs intact bilaterally Neck: Neck: Yes no lymphadenopathy, Yes supple and Yes tracheostomy present (On tracheal collar) Resp: Effort & Inspection: normal respiratory effort and no respiratory distress Auscultation: clear to auscultation bilaterally Cardio: Rate: regular rate Rhythm: regular rhythm Heart sounds: no gallops, no murmurs and no rubs GI: Palpation (GI): Soft to palpation and Other GI palpation findings present ( Nontender) Auscultation: normal bowel sounds Extrem: General: No clubbing, No cyanosis and Yes pedal edema (Trace bilateral) Objective Data Labs CBC & Chem 7: 02/26/22 05:21 02/26/22 05:21 Labs: Laboratory Results - last 24 hr 02/25/22 02/25/22 02/25/22 10:25 11:14 11:14 WBC RBC Hgb Hct MCV MCH MCHC RDW Plt Count MPV Immature Gran % (Auto) Neut % (Auto) Lymph % (Auto) [place] % (Auto) Eos % (Auto) Baso % (Auto) Lymph # (Auto) [place] # (Auto) Eos # (Auto) Baso # (Auto) Abs Immat Gran (auto) Absolute Neuts (auto) Absolute Nucleated RBC Nucleated RBC % (auto) Neutrophils % (Manual) 78 H Band Neutrophils % 7 H Lymphocytes % (Manual) 8 L Monocytes % (Manual) 2 Metamyelocytes % 3 Myelocytes % 2 Abs Neuts (Manual) 19.6 H Lymphocytes # (Manual) 1.8 Monocytes # (Manual) 0.5 Metamyelocytes # 0.7 Myelocytes # 0.5 Platelet Estimate NORMAL Plt Morphology Comment NORMAL RBC Morphology NOTED Macrocytosis 1+ (5-14) Leslie Cells 3+ (>5) Acanthocytes (Spur) 3+ (>5) Smear Tech's Comments O2 Saturation ABG pH at Pt Temp ABG pCO2 at Pt Temp ABG pO2 at Pt Temp ABG HCO3 ABG Base Excess (Actual) VBG pH VBG pCO2 VBG pO2 VBG HCO3 VBG O2 Saturation VBG Base Excess Sodium Potassium Chloride Carbon Dioxide Anion Gap BUN Creatinine Estim Creat Clear Calc Estimated GFR POC Glucose 174 H Random Glucose Lactic Acid Lactic Acid F/U @ 2Hr Lactic Acid F/U @ 4Hr Calcium Phosphorus Magnesium Total Bilirubin AST ALT Alkaline Phosphatase Troponin I High Sens Total Protein Albumin Urine Color Urine Appearance Urine pH Ur Specific [place] Urine Protein Urine Glucose (UA) Urine Ketones Urine Blood Urine Nitrite Ur Leukocyte Esterase Urine RBC Urine WBC Ur Squamous Epith Cells Urine Bacteria Epithelial Casts Hyaline Casts Granular Casts Salicylates Urine Opiates Screen Urine Fentanyl Screen Acetaminophen Ur Barbiturates Screen Ur Phencyclidine Scrn Ur Amphetamines Screen U Benzodiazepines Scrn Urine Cocaine Screen U Marijuana (THC) Screen COVID-19 (VALENTINE) COVID-19 Clin Com Influenza Type A (VALENTIN) Influenza Type B (VALENTIN) Influenza A & B Note Blood Type A Positive Antibody Screen NEGATIVE Crossmatch See Detail 02/25/22 02/25/22 02/25/22 11:14 11:14 11:14 WBC RBC Hgb Hct MCV MCH MCHC RDW Plt Count MPV Immature Gran % (Auto) Neut % (Auto) Lymph % (Auto) [place] % (Auto) Eos % (Auto) Baso % (Auto) Lymph # (Auto) [place] # (Auto) Eos # (Auto) Baso # (Auto) Abs Immat Gran (auto) Absolute Neuts (auto) Absolute Nucleated RBC Nucleated RBC % (auto) Neutrophils % (Manual) Band Neutrophils % Lymphocytes % (Manual) Monocytes % (Manual) Metamyelocytes % Myelocytes % Abs Neuts (Manual) Lymphocytes # (Manual) Monocytes # (Manual) Metamyelocytes # Myelocytes # Platelet Estimate Plt Morphology Comment RBC Morphology Macrocytosis [place] Cells Acanthocytes (Spur) Smear Tech's Comments O2 Saturation ABG pH at Pt Temp ABG pCO2 at Pt Temp ABG pO2 at Pt Temp ABG HCO3 ABG Base Excess (Actual) VBG pH VBG pCO2 VBG pO2 VBG HCO3 VBG O2 Saturation VBG Base Excess Sodium 135 Potassium 3.3 Chloride 100 Carbon Dioxide 15 L Anion Gap 23 H BUN 9 Creatinine 0.94 Estim Creat Clear Calc 100.3 Estimated GFR > 60 POC Glucose Random Glucose 224 H Lactic Acid 12.3 H* Lactic Acid F/U @ 2Hr Lactic Acid F/U @ 4Hr Calcium 8.4 Phosphorus Magnesium 2.8 H Total Bilirubin 0.4 AST 35 ALT 25 Alkaline Phosphatase 141 H Troponin I High Sens 8.9 Total Protein 6.4 L Albumin 3.6 Urine Color Urine Appearance Urine pH Ur Specific [place] Urine Protein Urine Glucose (UA) Urine Ketones Urine Blood Urine Nitrite Ur Leukocyte Esterase Urine RBC Urine WBC Ur Squamous Epith Cells Urine Bacteria Epithelial Casts Hyaline Casts Granular Casts Salicylates < 5.0 L Urine Opiates Screen Urine Fentanyl Screen Acetaminophen < 1 Ur Barbiturates Screen Ur Phencyclidine Scrn Ur Amphetamines Screen U Benzodiazepines Scrn Urine Cocaine Screen U Marijuana (THC) Screen COVID-19 (VALENTINE) COVID-19 Clin Com Influenza Type A (VALENTIN) Influenza Type B (VALENTIN) Influenza A & B Note Blood Type Antibody Screen Crossmatch 02/25/22 02/25/22 02/25/22 11:14 11:14 13:20 WBC 23.6 H RBC 4.69 Hgb 15.0 Hct 45.0 MCV 95.9 D MCH 32.0 MCHC 33.3 RDW 13.0 Plt Count 338 MPV 9.1 L Immature Gran % (Auto) Neut % (Auto) Lymph % (Auto) [place] % (Auto) Eos % (Auto) Baso % (Auto) Lymph # (Auto) [place] # (Auto) Eos # (Auto) Baso # (Auto) Abs Immat Gran (auto) Absolute Neuts (auto) Absolute Nucleated RBC 0.000 Nucleated RBC % (auto) 0.0 Neutrophils % (Manual) Band Neutrophils % Lymphocytes % (Manual) Monocytes % (Manual) Metamyelocytes % Myelocytes % Abs Neuts (Manual) Lymphocytes # (Manual) Monocytes # (Manual) Metamyelocytes # Myelocytes # Platelet Estimate Plt Morphology Comment RBC Morphology Macrocytosis [place] Cells Acanthocytes (Spur) Smear Tech's Comments O2 Saturation ABG pH at Pt Temp ABG pCO2 at Pt Temp ABG pO2 at Pt Temp ABG HCO3 ABG Base Excess (Actual) VBG pH VBG pCO2 VBG pO2 VBG HCO3 VBG O2 Saturation VBG Base Excess Sodium Potassium Chloride Carbon Dioxide Anion Gap BUN Creatinine Estim Creat Clear Calc Estimated GFR POC Glucose Random Glucose Lactic Acid Lactic Acid F/U @ 2Hr Lactic Acid F/U @ 4Hr Calcium Phosphorus Magnesium Total Bilirubin AST ALT Alkaline Phosphatase Troponin I High Sens Total Protein Albumin Urine Color Urine Appearance Urine pH Ur Specific [place] Urine Protein Urine Glucose (UA) Urine Ketones Urine Blood Urine Nitrite Ur Leukocyte Esterase Urine RBC Urine WBC Ur Squamous Epith Cells Urine Bacteria Epithelial Casts Hyaline Casts Granular Casts Salicylates Urine Opiates Screen Urine Fentanyl Screen Acetaminophen Ur Barbiturates Screen Ur Phencyclidine Scrn Ur Amphetamines Screen U Benzodiazepines Scrn Urine Cocaine Screen U Marijuana (THC) Screen COVID-19 (VALENTINE) Negative COVID-19 Clin Com See Note Influenza Type A (VALENTIN) Negative Influenza Type B (VALENTIN) Negative Influenza A & B Note See Note Blood Type Antibody Screen Crossmatch 02/25/22 02/25/2222 13:28 13:39 13:39 WBC RBC Hgb Hct MCV MCH MCHC RDW Plt Count MPV Immature Gran % (Auto) Neut % (Auto) Lymph % (Auto) [place] % (Auto) Eos % (Auto) Baso % (Auto) Lymph # (Auto) [place] # (Auto) Eos # (Auto) Baso # (Auto) Abs Immat Gran (auto) Absolute Neuts (auto) Absolute Nucleated RBC Nucleated RBC % (auto) Neutrophils % (Manual) Band Neutrophils % Lymphocytes % (Manual) Monocytes % (Manual) Metamyelocytes % Myelocytes % Abs Neuts (Manual) Lymphocytes # (Manual) Monocytes # (Manual) Metamyelocytes # Myelocytes # Platelet Estimate Plt Morphology Comment RBC Morphology Macrocytosis [place] Cells Acanthocytes (Spur) Smear Tech's Comments O2 Saturation ABG pH at Pt Temp ABG pCO2 at Pt Temp ABG pO2 at Pt Temp ABG HCO3 ABG Base Excess (Actual) VBG pH VBG pCO2 VBG pO2 VBG HCO3 VBG O2 Saturation VBG Base Excess Sodium Potassium Chloride Carbon Dioxide Anion Gap BUN Creatinine Estim Creat Clear Calc Estimated GFR POC Glucose Random Glucose Lactic Acid Lactic Acid F/U @ 2Hr 5.6 H* Lactic Acid F/U @ 4Hr Calcium Phosphorus Magnesium Total Bilirubin AST ALT Alkaline Phosphatase Troponin I High Sens Total Protein Albumin Urine Color YELLOW Urine Appearance HAZY Urine pH 6.0 Ur Specific [place] 1.020 Urine Protein 1+ H Urine Glucose (UA) 100 H Urine Ketones NEG Urine Blood 3+ H Urine Nitrite NEG Ur Leukocyte Esterase NEG Urine RBC 15-29 H Urine WBC 1-4 Ur Squamous Epith Cells 1+ Urine Bacteria 1+ Epithelial Casts 1-4 Hyaline Casts 1-4 Granular Casts 5-9 Salicylates Urine Opiates Screen POSITIVE H Urine Fentanyl Screen POSITIVE H Acetaminophen Ur Barbiturates Screen Not Detected Ur Phencyclidine Scrn Not Detected Ur Amphetamines Screen Not Detected U Benzodiazepines Scrn POSITIVE H Urine Cocaine Screen Not Detected U Marijuana (THC) Screen POSITIVE H COVID-19 (VALENTINE) COVID-19 Clin Com Influenza Type A (VALENTIN) Influenza Type B (VALENTIN) Influenza A & B Note Blood Type Antibody Screen Crossmatch 02/25/22 02/25/22 02/26/22 14:01 16:04 05:21 WBC 17.2 H RBC 3.96 L Hgb 12.5 L Hct 36.6 L MCV 92.4 MCH 31.6 MCHC 34.2 RDW 13.5 Plt Count 237 D MPV 9.2 L Immature Gran % (Auto) 1.0 H Neut % (Auto) 91.6 H Lymph % (Auto) 2.6 L [place] % (Auto) 4.6 Eos % (Auto) 0.1 Baso % (Auto) 0.1 Lymph # (Auto) 0.4 L [place] # (Auto) 0.8 Eos # (Auto) 0.0 Baso # (Auto) 0.0 Abs Immat Gran (auto) 0.17 H Absolute Neuts (auto) 15.8 H Absolute Nucleated RBC 0.000 Nucleated RBC % (auto) 0.0 Neutrophils % (Manual) Band Neutrophils % Lymphocytes % (Manual) Monocytes % (Manual) Metamyelocytes % Myelocytes % Abs Neuts (Manual) Lymphocytes # (Manual) Monocytes # (Manual) Metamyelocytes # Myelocytes # Platelet Estimate Plt Morphology Comment RBC Morphology Macrocytosis [place] Cells Acanthocytes (Spur) Smear Tech's Comments VERIFIED O2 Saturation 100.0 ABG pH at Pt Temp 7.32 L ABG pCO2 at Pt Temp 30 L ABG pO2 at Pt Temp 149 H ABG HCO3 16 L ABG Base Excess (Actual) -8.5 VBG pH VBG pCO2 VBG pO2 VBG HCO3 VBG O2 Saturation VBG Base Excess Sodium Potassium Chloride Carbon Dioxide Anion Gap BUN Creatinine Estim Creat Clear Calc Estimated GFR POC Glucose Random Glucose Lactic Acid Lactic Acid F/U @ 2Hr Lactic Acid F/U @ 4Hr 4.5 H* Calcium Phosphorus Magnesium Total Bilirubin AST ALT Alkaline Phosphatase Troponin I High Sens Total Protein Albumin Urine Color Urine Appearance Urine pH Ur Specific [place] Urine Protein Urine Glucose (UA) Urine Ketones Urine Blood Urine Nitrite Ur Leukocyte Esterase Urine RBC Urine WBC Ur Squamous Epith Cells Urine Bacteria Epithelial Casts Hyaline Casts Granular Casts Salicylates Urine Opiates Screen Urine Fentanyl Screen Acetaminophen Ur Barbiturates Screen Ur Phencyclidine Scrn Ur Amphetamines Screen U Benzodiazepines Scrn Urine Cocaine Screen U Marijuana (THC) Screen COVID-19 (VALENTINE) COVID-19 Clin Com Influenza Type A (VALENTIN) Influenza Type B (VALENTIN) Influenza A & B Note Blood Type Antibody Screen Crossmatch 02/26/22 02/26/22 05:21 05:22 WBC RBC Hgb Hct MCV MCH MCHC RDW Plt Count MPV Immature Gran % (Auto) Neut % (Auto) Lymph % (Auto) [place] % (Auto) Eos % (Auto) Baso % (Auto) Lymph # (Auto) [place] # (Auto) Eos # (Auto) Baso # (Auto) Abs Immat Gran (auto) Absolute Neuts (auto) Absolute Nucleated RBC Nucleated RBC % (auto) Neutrophils % (Manual) Band Neutrophils % Lymphocytes % (Manual) Monocytes % (Manual) Metamyelocytes % Myelocytes % Abs Neuts (Manual) Lymphocytes # (Manual) Monocytes # (Manual) Metamyelocytes # Myelocytes # Platelet Estimate Plt Morphology Comment RBC Morphology Macrocytosis [place] Cells Acanthocytes (Spur) Smear Tech's Comments O2 Saturation ABG pH at Pt Temp ABG pCO2 at Pt Temp ABG pO2 at Pt Temp ABG HCO3 ABG Base Excess (Actual) VBG pH 7.46 H VBG pCO2 29 VBG pO2 49 VBG HCO3 21 L VBG O2 Saturation 81.0 VBG Base Excess -1.1 Sodium 135 Potassium 3.6 Chloride 102 Carbon Dioxide 25 Anion Gap 12 BUN 15 D Creatinine 0.71 Estim Creat Clear Calc 132.7 Estimated GFR > 60 POC Glucose Random Glucose 122 H D Lactic Acid Lactic Acid F/U @ 2Hr Lactic Acid F/U @ 4Hr Calcium 8.0 L Phosphorus 3.3 Magnesium 1.8 Total Bilirubin 1.0 AST 67 H ALT 30 Alkaline Phosphatase 93 D Troponin I High Sens Total Protein 5.3 L Albumin 3.1 L Urine Color Urine Appearance Urine pH Ur Specific [place] Urine Protein Urine Glucose (UA) Urine Ketones Urine Blood Urine Nitrite Ur Leukocyte Esterase Urine RBC Urine WBC Ur Squamous Epith Cells Urine Bacteria Epithelial Casts Hyaline Casts Granular Casts Salicylates Urine Opiates Screen Urine Fentanyl Screen Acetaminophen Ur Barbiturates Screen Ur Phencyclidine Scrn Ur Amphetamines Screen U Benzodiazepines Scrn Urine Cocaine Screen U Marijuana (THC) Screen COVID-19 (VALENTINE) COVID-19 Clin Com Influenza Type A (VALENTIN) Influenza Type B (VALENTIN) Influenza A & B Note Blood Type Antibody Screen Crossmatch Microbiology Microbiology Results: Microbiology 02/25/22 11:14 Blood - Venous Blood Culture - Preliminary Prelim: GPC Gram Stain only Progress Note: A&P Assessment and plan (1) Acute respiratory failure with hypoxia: Status: Acute (2) Massive hemoptysis: Status: Acute (3) Respiratory arrest: Status: Acute (4) Laryngeal cancer: Status: Acute (5) Status post laryngectomy: Status: Acute (6) Hypothyroidism: Status: Acute (7) DVT (deep venous thrombosis): Status: Acute (8) Cardiac arrest: Status: Acute Plan Assessment: 61-year-old gentleman with underlying history of laryngeal cancer status post excision and radiation with underlying tracheal stoma and TEP speaking valve admitted with large volume hemoptysis, likely secondary to mechanical trauma on the background of anticoagulation use for underlying DVT further complicated by cardiac arrest with return of spontaneous circulation after 4 rounds of CPR and patient's return to baseline mental status, but requiring placement of tracheostomy and initiation of ventilatory support. Plan: Neuro: No acute issues. Patient with return to baseline mental status after CPR. Cardiac: Cardiac arrest, likely secondary to hypoxia, returned spontaneous circulation after 4 rounds of CPR. 2D echocardiogram is pending. Titrated off pressors. Pulmonary: Acute hypoxic respiratory failure requiring replacement of tracheostomy in the tracheal stoma initiation ventilatory support, secondary to large volume hemoptysis, likely secondary to mechanical trauma with manual clearance of stoma by the patient. Titrated to tracheal collar. Underlying status post complete laryngectomy. Renal: No acute issues. Endo: No acute issues. Underlying hypothyroidism. GI: No acute issues. ID: Empirically covered with broad-spectrum antibiotics. Elevated lactate likely secondary to hypoxia. Heme/Onc: No acute issues. Psych: No acute issues. Miscellaneous: No acute issues. Prophylaxis: compression devices, ppi Diet: nothing by mouth Critical care time spent: 45 minutes Quality Stroke Does the patient have a stroke diagnosis?: No VTE Prior VTE?: Yes VTE Risk Level:: Medical - moderate - high VTE Device Contraindication: N/A - Device Ordered VTE Drug Contraindication: Treatment Not Indicated
--- NOTE | 2022-02-26 13:54 | MHC.CM.PN ---
Pt in ICU recently extubated but groggy. Call placed to pt's spouse who states pt is extensively followed by [facility]/ in [place], has no services at home and is independent with care needs including his own trach. Negin states she can assist pt with any needs he may have but would consider VNA if necessary. Negin would like respiratory to see pt for the possibility of O2 at home should he have a mucous plug that cannot be retrieved. Will pass on request to provider. Negin to transport, Vax x 3. HCP copy to be brought in by Negin on 02/27. CM to follow
[2022-02-26] MEDS: levoFLOXacin/D5W 750 MG/150 ML PIGGYBACK 100 MG IV (14:01)
[2022-02-26] MEDS: HYDROmorphone HCl 1 MG/ML SYRINGE 2 MG IVPUSH ×3 (15:23→23:18)
--- NOTE | 2022-02-26 16:31 | PC.RT ---
14:[address] Geller and RT. pt noa well. sxn before and after.pt on 60% t/c . no bleeding noticed when decannulated. Dr. Geller wants RT/RN ONLY to sxn pt. pt will remain with stoma exposed until tomorrow where Dr. Geller will place patients own stoma attire and button.
--- NOTE | 2022-02-26 17:16 | PC.RT ---
Sign placed above patients bed by Dr. Geller stating that the patient should not be intubated from the mouth/nose due to a total laryngetctomy..Pt has a Trachel Esophagus Prostetic (TEP)
--- NOTE | 2022-02-26 17:59 | PC.NURSE ---
RT adjusting vent and trach mask throughout the shift. pt repo q2. safety and fall precautions in place. pt had visitor at bedside today. pt requiring freq suctioning, pt educated on suctioning causing more damage d/t pt bleeding inside stoma and coughing up small blood clots from stoma. MD and RT were informed earlier this AM. call ford within reach. fent drip titrated down d/t pt stating he did not notice a difference in pain when fent was first titrated down and has requested IV dilaudid. Pt stated his pain has been occurring since admission d/t CPR and also has chronic pain.
[2022-02-27] VITALS (28 sets, daily range): BP systolic 107–209; BP diastolic 58–141; PULSE 78–119; RESP 10–26; TEMP 35.4–36.9; O2SAT 90–97; BMI 31.1
[2022-02-27] MEDS: HYDROmorphone HCl 1 MG/ML SYRINGE 2 MG IVPUSH ×8 (03:08→22:09)
[2022-02-27] MEDS: LORazepam 2 MG/ML VIAL 1 MG IVPUSH ×2 (05:17→13:07)
[2022-02-27] MEDS: Pantoprazole Sodium 40 MG/10 ML VIAL IVPUSH (05:22)
[2022-02-27 05:34] LABS: VBG Base Excess -0.5 mmol/L; VBG HCO3 22 mmol/L (22-26); VBG pCO2 30 mmHg; VBG pH 7.46 (7.32-7.43); VBG pO2 39 mmHg
[2022-02-27 05:41] LABS: MANUAL DIFF FLAG NO
[2022-02-27 05:48] LABS: Basophils Percent Auto 0.3 % (0-2); Hematocrit 41.2 % (42.0-52.0); Hemoglobin 13.9 g/dl (14.0-18.0); Imm Gran Abs Auto 0.19 X10*3/uL (0.00-0.03); Imm Gran Pct Auto 1.3 % (0.0-0.4); Lymphocytes Absolute Auto 0.6 X10*3/uL (1.2-4.9); Lymphocytes Percent Auto 3.9 % (20-40); Mean Corpuscular HGB Conc 33.7 g/dl (31.0-36.0); Mean Corpuscular Hemoglobin 31.9 pg (27.0-33.0); Mean Corpuscular Volume 94.5 fL (80.0-98.0); Mean Platelet Volume 9.5 fL (9.4-12.4); Monocytes Percent Auto 6.5 % (2-11); Neutrophils Absolute Auto 13.2 x10*3/uL (2.0-8.3); Platelet Count 266 X10*3/uL (160-400); Red Blood Count 4.36 X10*6/uL (4.60-5.80); Red Cell Distribution Width 13.2 % (11.0-16.0)
[2022-02-27 06:00] LABS: Venous Blood Gas Refer to POC result
[2022-02-27 06:01] LABS: Anion Gap 14 (12-20); Blood Urea Nitrogen 10 mg/dL (9-16); Calcium 8.7 mg/dL (8.4-10.2); Carbon Dioxide 25 mmol/L (22-29); Chloride 99 mmol/L (96-108); Estimated Glomerular Filt Rate > 60; Glucose Random 112 mg/dL (60-115); Magnesium 1.8 mg/dL (1.6-2.6); Phosphorus 2.3 mg/dL (2.7-4.5); Potassium 3.3 mmol/L (3.3-5.1); Sodium 135 mmol/L (135-145)
[2022-02-27] MEDS: Potassium Phosphate/NS 15 MMOL/250 ML PLAST..BAG 62.5 MMOL IV (06:32)
--- NOTE | 2022-02-27 06:40 | PC.NURSE ---
ASSUMED CARE OF PT AT 1900. PT A&O X3. STRONG COUGH NOTED AND TRACH STOMA SUCTIONED SEVERAL TIMES FOR MOD AMOUNT OF BLOODY SPUTUM. LESS BLOODY SPUTUM THE SHIFT WENT BY. AFEBRILE. VITAL SIGNS STABLE. PT BECAME ANXIOUS AND O2 SAT DOWN TO 88%. ATIVAN 1 MG IV GIVEN PER ORDER OF MAXINE SENIOR LEAD PROJECT MANAGER WITH GOOD EFFECT. PT STATED IT REALLY HELPED. O2 SATS BACK UP TO 93%. PT ABLE TO SPEAK WITH USE OF DEVICE. C/O CHEST PAIN S/P CPR. DILAUDID 1 MG IV GIVEN X3 WITH SOME EFFECT BUT NOT COMPLETE EFFECT.
--- NOTE | 2022-02-27 10:13 | PM.CCPN ---
Subjective Subjective Date of Service: 02/27/22 Interval History: 61-year-old gentleman with underlying history of laryngeal cancer ( followed at [facility]) status post laryngectomy with neopharynx formation/transesophageal voice prosthesis (TEP) valve placement and radiation, with tracheal stoma (normally performing self-care on his stoma/speaking valve), with history of mucus plugging, also on DVT on anticoagulation admitted on 02/25/2022 after his son heard commotion when the patient was in bathroom and found patient short of breath with large amount of blood. On EMS arrival patient was noted to have hemoptysis and be significantly hypoxic. He was intubated (?through the stoma) in the field with a 6.0 tube and brought to the emergency room where he was noted to be persistently hypoxic. ET tube exchange was attempted, but patient required re-intubation further complicated by PEA cardiac arrest with ROSC after 4 rounds of CPR. Tracheostomy tube placed in the stoma and patient connected to the ventilatory support. Patient's mentation noted to be at the baseline after completion of CPR. Patient initially required vasopressor support, covered with empiric broad-spectrum antibiotics, received 2 units of packed red blood cells. His CT angiogram chest did not demonstrate pulmonary hemorrhage. Patient was admitted to the intensive care unit. No events overnight. Tracheostomy removed, now has trach mask over tracheal stoma. Critical Care Time (minutes): 45 Physical Exam Vital Signs: Vital Signs: Last Vital Signs Temp 97.7 F 02/27/22 03:00 Pulse 85 02/27/22 10:00 Resp 11 L 02/27/22 10:00 BP 140/71 H 02/27/22 10:00 Pulse Ox 93 02/27/22 10:00 O2 Del Method 02/27/22 10:00 O2 Flow Rate 10 02/27/22 10:00 FiO2 60 02/27/22 10:00 BMI result Body Mass Index 31.1 Const: General: no acute distress, alert and awake Eyes: Sclerae: sclerae normal EOM: EOMs intact bilaterally Neck: Neck: Yes no lymphadenopathy, Yes supple and Yes other ( tracheal mask over tracheal stoma) Resp: Effort & Inspection: normal respiratory effort and no respiratory distress Auscultation: clear to auscultation bilaterally Cardio: Rate: regular rate Rhythm: regular rhythm Heart sounds: no gallops, no murmurs and no rubs GI: Palpation (GI): Soft to palpation and Other GI palpation findings present ( Nontender) Auscultation: normal bowel sounds Extrem: General: No clubbing, No cyanosis and Yes edema ( trace bilateral) Objective Data Labs CBC & Chem 7: 02/27/22 05:26 02/27/22 05:26 Labs: Laboratory Results - last 24 hr 02/27/22 02/27/22 02/27/22 05:26 05:26 05:28 WBC 15.0 H RBC 4.36 L Hgb 13.9 L Hct 41.2 L MCV 94.5 MCH 31.9 MCHC 33.7 RDW 13.2 Plt Count 266 MPV 9.5 Immature Gran % (Auto) 1.3 H Neut % (Auto) 88.0 H Lymph % (Auto) 3.9 L [place] % (Auto) 6.5 Eos % (Auto) 0.0 Baso % (Auto) 0.3 Lymph # (Auto) 0.6 L [place] # (Auto) 1.0 Eos # (Auto) 0.0 Baso # (Auto) 0.0 Abs Immat Gran (auto) 0.19 H Absolute Neuts (auto) 13.2 H Absolute Nucleated RBC 0.000 Nucleated RBC % (auto) 0.0 VBG pH 7.46 H VBG pCO2 30 VBG pO2 39 VBG HCO3 22 VBG O2 Saturation 69.0 VBG Base Excess -0.5 Sodium 135 Potassium 3.3 Chloride 99 Carbon Dioxide 25 Anion Gap 14 BUN 10 Creatinine 0.65 Estim Creat Clear Calc 145.0 Estimated GFR > 60 Random Glucose 112 Calcium 8.7 D Phosphorus 2.3 L Magnesium 1.8 Microbiology Microbiology Results: Microbiology 02/25/22 11:14 Blood - Venous Blood Culture - Preliminary Prelim: GPC Gram Stain only Prelim: GPR Gram Stain only 02/25/22 11:14 Blood - Venous Blood Culture - Preliminary Prelim: GPC Gram Stain only Progress Note: A&P Assessment and plan (1) Status post laryngectomy: Status: Acute (2) Acute respiratory failure with hypoxia: Status: Acute (3) Hypothyroidism: Status: Acute (4) Laryngeal cancer: Status: Acute (5) DVT (deep venous thrombosis): Status: Acute (6) Respiratory arrest: Status: Acute (7) Cardiac arrest: Status: Acute Plan Assessment: 61-year-old gentleman with underlying history of laryngeal cancer status post excision and radiation with underlying tracheal stoma and TEP speaking valve admitted with large volume hemoptysis, likely secondary to mechanical trauma on the background of anticoagulation use for underlying DVT further complicated by cardiac arrest with return of spontaneous circulation after 4 rounds of CPR and patient's return to baseline mental status, but requiring placement of tracheostomy and initiation of ventilatory support. Plan: Neuro: No acute issues. Patient with return to baseline mental status after CPR. Cardiac: Cardiac arrest, likely secondary to hypoxia, returned spontaneous circulation after 4 rounds of CPR. 2D echocardiogram is essentially normal. Titrated off pressors. Pulmonary: Acute hypoxic respiratory failure requiring replacement of tracheostomy in the tracheal stoma initiation ventilatory support, secondary to large volume hemoptysis, likely secondary to mechanical trauma with manual clearance of stoma by the patient. Titrated to tracheal collar. Underlying status post complete laryngectomy. Tracheostomy removed, now has tracheal mask over tracheal stoma. Renal: No acute issues. Endo: No acute issues. Underlying hypothyroidism. GI: No acute issues. ID: Empirically covered with broad-spectrum antibiotics. Elevated lactate likely secondary to hypoxia. Heme/Onc: No acute issues. Psych: No acute issues. Miscellaneous: No acute issues. Prophylaxis: Heparin Diet: pending swallow evaluation Critical care time spent: 45 minutes Quality Stroke Does the patient have a stroke diagnosis?: No VTE Prior VTE?: Yes VTE Risk Level:: Medical - moderate - high VTE Device Contraindication: N/A - Device Ordered VTE Drug Contraindication: Treatment Not Indicated
[2022-02-27] MEDS: Furosemide 40 MG/4 ML VIAL IVPUSH (11:15)
[2022-02-27] MEDS: Heparin Sodium,Porcine 5,000 UNIT/ML VIAL 5000 UNIT SUBCUT ×2 (11:15→18:20)
--- NOTE | 2022-02-27 12:24 | PC.RT ---
Pt placed on 7 liters via 10 [place] suction catheter into pt stoma per Dr. Geller. Sats 91% . noa well No resp distress noted
--- NOTE | 2022-02-27 12:30 | PHA.PROG ---
Admission Date/Time: February 25, 2022 13:43 Indication: BACTEREMIA Weight in k kg Adjusted body weight in K.16 [place] body weight in Kg: Obesity Dosing Indication % IBW: Serum Creatinine - Last 168 Hours 02/25/22 02/26/22 02/27/22 11:14 05:21 05:26 Creatinine 0.94 0.71 0.65 Estimated CrCl and GFR - Last 168 Hours 02/25/22 02/26/22 02/27/22 11:14 05:21 05:26 Estim Creat Clear Calc 100.3 132.7 145.0 Estimated GFR > 60 > 60 > 60 Vancomycin Loading Dose: 2000 MG LOADING Current Vancomycin Dosing Regimen: 1250MG Q12H Vancomycin Monitoring using AUC goal of 400 - 600 range with trough as surrogate marker: AUC 555; 15.5 Date and Time for next Vancomycin Level to be drawn: 02/28 @2100 Pharmacist Comments on Vancomycin Plan: OBESE MODEL Vancomycin dosing will take advantage of [employer] as a clinical decision support tool that uses Bayesian modeling to calculate individual patient's pharmacokinetic parameters and forecast the patient's drug concentration time course with the target goal AUC 24 range of 400 - 600 mg/L/hr.
--- NOTE | 2022-02-27 13:24 | MHC.CM.PN ---
HCP COMPLETED AND PLACED IN CHART PATIENT HAS ORIGINAL AND ONE COPY. HE ASSIGNED , RUBEN ([phone]) AND SON, BALDOMERO ([phone]) COPY UPLOADED INTO [employer]
[2022-02-27] MEDS: levoFLOXacin/D5W 750 MG/150 ML PIGGYBACK 100 MG IV (14:02)
--- NOTE | 2022-02-27 18:14 | HE.PHANOTE ---
Updated Dr. Geller and Tony that IV ativan is on backorder. Ativan 1 mg IVPush PRN was switched to Versed 2 mg Q6H PRN per order by Dr. Duyen Camejo, NikoD
[2022-02-27] MEDS: Midazolam HCl/PF 2 MG/2 ML VIAL IVPUSH (19:24)
--- NOTE | 2022-02-27 19:35 | PC.NURSE ---
Alert and oriented. Somewhat agitated/anxious at times. Expressed pain to chest wall/ribs, left anterior chest mostly but also diffuse throughout, limited assessment regarding character of pain, but acknowledged sharp and with breathing and coughs. MD aware, no EKG at this time. Medicated with PRN dilaudid, and patient saying needed dose before due, discussed with MD and administered early per MD. Frequency of dilaudid increased per MD, and subsequently patient still having chest pain refractory to dilaudid, and MD increased frequency to Q2 hours PRN. Patient reports relief with this dosage. Patient also had 1 mg IV ativan before this shift, and then later was agitated/anxious/uncomfortable and MD aware and IV ativan 1 mg again ordered and given with good effect. Was initially resitant to repositioning x about 6 hours of this shift, was educated by nursing and MD with good effect, is still refusing sequentials and continues on heparin ppx and MD aware. New order for versed moving forward. Patient with transtracheal catheter arranged with 10 Fr catheter per RT and MD, oxygen requirement was downtitrated from 100% early this morning to now 7 LPM. Patient with some blood tinged secretions to laryngeal stoma. Some redness around stoma site.
[2022-02-27] MEDS: vancomycin HCL 1,250 MG in 0.9 % Sodium Chloride 250 ML 166.67 MG IV (23:41)
[2022-02-27] MEDS: hydrALAZINE HCl 20 MG/ML VIAL 10 MG IVPUSH (23:44)
[2022-02-28] VITALS (34 sets, daily range): BP systolic 90–162; BP diastolic 60–108; PULSE 71–114; RESP 10–28; TEMP 36.7–36.9; O2SAT 88–99; BMI 30.5
--- NOTE | 2022-02-28 | ECG_ITS ---
Test Reason : hypoxia Blood Pressure : / mmHG Vent. Rate : 099 BPM Atrial Rate : 099 BPM P-R Int : 158 ms QRS Dur : 078 ms QT Int : 366 ms P-R-T Axes : 027 -18 044 degrees QTc Int : 469 ms Normal sinus rhythm Cannot rule out posterior infarct Abnormal ECG When compared to the previous EKG of Criteria for inferior infarct not present anymore Referred By: Tony Galarza Electronically Signed By:Rohith Diop
[2022-02-28] MEDS: Midazolam HCl/PF 2 MG/2 ML VIAL IVPUSH ×4 (00:03→19:37)
[2022-02-28] MEDS: HYDROmorphone HCl 1 MG/ML SYRINGE 2 MG IVPUSH ×9 (00:04→17:30)
[2022-02-28 00:27] LABS: ABG Base Excess -3.2 mmol/L; ABG HCO3 19 mmol/L (22-26); ABG pCO2 29 mmHg (32-45); ABG pH 7.43 (7.35-7.45); ABG pO2 54 mmHg (83-108)
[2022-02-28] MEDS: fentaNYL citrate/PF 100 MCG/2 ML VIAL IVPUSH ×2 (00:30→01:20)
[2022-02-28 00:37] LABS: ABG Refer to POC result
[2022-02-28 01:21] LABS: Anion Gap 15 (12-20); Blood Urea Nitrogen 11 mg/dL (9-16); Calcium 8.4 mg/dL (8.4-10.2); Carbon Dioxide 27 mmol/L (22-29); Chloride 96 mmol/L (96-108); Creatinine Clr Calc Pharmacy 134.6; Estimated Glomerular Filt Rate > 60; Glucose Random 109 mg/dL (60-115); Potassium 3.1 mmol/L (3.3-5.1); Sodium 135 mmol/L (135-145)
[2022-02-28 01:35] LABS: B Type Natriuretic Peptide 234 pg/mL (<100); Troponin-I High Sensitivity 33.8 ng/L (<3.5-35.0)
[2022-02-28 01:53] LABS: Phosphorus 3.2 mg/dL (2.7-4.5)
[2022-02-28] MEDS: Potassium Chloride Packet 20 MEQ PACKET 40 MEQ PO (02:29)
--- NOTE | 2022-02-28 03:16 | PC.NURSE ---
Pt found to be tachypneic and diaphoretic, complaining of sob. ELECTRICAL TESTER and RT at bedside. Pt suctioned multiple times by RT with thick bloody secretions. SpO2 85% on 7L tracheal catheter, placed on 98%, 10L trach mask. Pt received 2 mg? dilaudid x2 for pain, 2 mg versed x2 for worsening anxiety, and 100 mcg fentanyl x2 for increased work of breathing.?
[2022-02-28 05:29] LABS: VBG Base Excess 3.8 mmol/L; VBG HCO3 26 mmol/L (22-26); VBG pCO2 34 mmHg; VBG pH 7.49 (7.32-7.43); VBG pO2 80 mmHg
[2022-02-28 05:35] LABS: Venous Blood Gas Refer to POC result
[2022-02-28 05:36] LABS: MANUAL DIFF FLAG NO
[2022-02-28 05:40] LABS: Basophils Absolute Auto 0.1 X10*3/uL (0.0-0.2); Basophils Percent Auto 0.3 % (0-2); Hematocrit 38.5 % (42.0-52.0); Imm Gran Abs Auto 0.32 X10*3/uL (0.00-0.03); Imm Gran Pct Auto 1.8 % (0.0-0.4); Lymphocytes Absolute Auto 0.4 X10*3/uL (1.2-4.9); Lymphocytes Percent Auto 2.2 % (20-40); Mean Corpuscular HGB Conc 33.8 g/dl (31.0-36.0); Mean Corpuscular Hemoglobin 31.9 pg (27.0-33.0); Mean Corpuscular Volume 94.6 fL (80.0-98.0); Mean Platelet Volume 9.5 fL (9.4-12.4); Monocytes Absolute Auto 1.4 X10*3/uL (0.1-1.2); Monocytes Percent Auto 7.4 % (2-11); Neutrophils Absolute Auto 16.1 x10*3/uL (2.0-8.3); Neutrophils Percent Auto 88.3 % (45-73); Platelet Count 262 X10*3/uL (160-400); Red Blood Count 4.07 X10*6/uL (4.60-5.80); Red Cell Distribution Width 13.1 % (11.0-16.0); White Blood Count 18.2 X10*3/uL (4.8-10.8)
[2022-02-28] MEDS: Levothyroxine Sodium 75 MCG TABLET PO (05:53)
[2022-02-28 06:01] LABS: Albumin Level 3.4 g/dL (3.5-5.0); Anion Gap 12 (12-20); Blood Urea Nitrogen 11 mg/dL (9-16); Calcium 8.6 mg/dL (8.4-10.2); Carbon Dioxide 29 mmol/L (22-29); Chloride 98 mmol/L (96-108); Creatinine Clr Calc Pharmacy 139.5; Estimated Glomerular Filt Rate > 60; Glucose Random 110 mg/dL (60-115); Magnesium 1.8 mg/dL (1.6-2.6); Phosphorus 2.6 mg/dL (2.7-4.5); Potassium 3.5 mmol/L (3.3-5.1); Sodium 135 mmol/L (135-145)
--- NOTE | 2022-02-28 06:50 | HE.PHANOTE ---
DA PATTEN CONTINUE CURRENT DOSE. BASED ON SCR FROM TODAY, PREDICTED AUC IS 555, TROUGH 15.5. NEXT TROUGH DUE AT 2100
[2022-02-28] MEDS: Potassium Phosphate/NS 15 MMOL/250 ML PLAST..BAG 62.5 MMOL IV (08:49)
[2022-02-28] MEDS: amLODIPine Besylate 10 MG TABLET PO (08:50)
[2022-02-28] MEDS: Doxazosin Mesylate 2 MG TABLET PO (08:50)
[2022-02-28] MEDS: Tobramycin Sulfate 80 MG/2 ML VIAL 300 MG INHALE ×2 (09:16→20:28)
--- NOTE | 2022-02-28 09:55 | PM.CCPN ---
Subjective Subjective Date of Service: 02/28/22 Interval History: ICU day 4 for respiratory arrest, hemoptysis, acute hypoxic respiratory failure 61-year-old gentleman with underlying history of laryngeal cancer ( followed at [facility]) status post laryngectomy with neopharynx formation/transesophageal voice prosthesis (TEP) valve placement and radiation, with tracheal stoma (normally performing self-care on his stoma/speaking valve), with history of mucus plugging, also on DVT on anticoagulation admitted on 02/25/2022 after his son heard commotion when the patient was in bathroom and found patient short of breath with large amount of blood. On EMS arrival patient was noted to have hemoptysis and be significantly hypoxic. He was intubated (?through the stoma) in the field with a 6.0 tube and brought to the emergency room where he was noted to be persistently hypoxic. ET tube exchange was attempted, but patient required re-intubation further complicated by PEA cardiac arrest with ROSC after 4 rounds of CPR. Tracheostomy tube placed in the stoma and patient connected to the ventilatory support. Patient's mentation noted to be at the baseline after completion of CPR. Patient initially required vasopressor support, covered with empiric broad-spectrum antibiotics, received 2 units of packed red blood cells. His CT angiogram chest did not demonstrate pulmonary hemorrhage. Patient was admitted to the intensive care unit. Overnight with mucus plugging requiring vigorous suctioning. Critical Care Time (minutes): 45 Physical Exam Vital Signs: Vital Signs: Last Vital Signs Temp 98.4 F 02/28/22 08:00 Pulse 113 H 02/28/22 09:31 Resp 22 H 02/28/22 09:00 BP 119/60 02/28/22 09:00 Pulse Ox 88 L 02/28/22 09:00 O2 Del Method 02/28/22 09:00 O2 Flow Rate 10 02/28/22 06:00 FiO2 98 02/28/22 09:00 BMI result Body Mass Index 30.5 Const: General: no acute distress, alert and awake Eyes: Sclerae: sclerae normal EOM: EOMs intact bilaterally Neck: Neck: Yes no lymphadenopathy, Yes supple and Yes other ( tracheal stoma on tracheal mask) Resp: Effort & Inspection: normal respiratory effort and no respiratory distress Auscultation: clear to auscultation bilaterally Cardio: Rate: regular rate Rhythm: regular rhythm Heart sounds: no gallops, no murmurs and no rubs GI: Palpation (GI): Soft to palpation and Other GI palpation findings present ( Nontender) Auscultation: normal bowel sounds Extrem: General: Yes no pedal edema, No clubbing and No cyanosis Objective Data Labs CBC & Chem 7: 02/28/22 05:15 02/28/22 05:15 Labs: Laboratory Results - last 24 hr 02/28/22 02/28/22 02/28/22 00:22 01:01 01:01 WBC RBC Hgb Hct MCV MCH MCHC RDW Plt Count MPV Immature Gran % (Auto) Neut % (Auto) Lymph % (Auto) [place] % (Auto) Eos % (Auto) Baso % (Auto) Lymph # (Auto) [place] # (Auto) Eos # (Auto) Baso # (Auto) Abs Immat Gran (auto) Absolute Neuts (auto) Absolute Nucleated RBC Nucleated RBC % (auto) O2 Saturation 86.0 ABG pH at Pt Temp 7.43 ABG pCO2 at Pt Temp 29 L ABG pO2 at Pt Temp 54 L ABG HCO3 19 L ABG Base Excess (Actual) -3.2 VBG pH VBG pCO2 VBG pO2 VBG HCO3 VBG O2 Saturation VBG Base Excess Sodium 135 Potassium 3.1 L Chloride 96 Carbon Dioxide 27 Anion Gap 15 BUN 11 Creatinine 0.70 Estim Creat Clear Calc 134.6 Estimated GFR > 60 Random Glucose 109 Calcium 8.4 Phosphorus 3.2 Magnesium Troponin I High Sens 33.8 D B-Natriuretic Peptide 234 H Albumin 02/28/22 02/28/22 02/28/22 05:15 05:15 05:24 WBC 18.2 H RBC 4.07 L Hgb 13.0 L Hct 38.5 L MCV 94.6 MCH 31.9 MCHC 33.8 RDW 13.1 Plt Count 262 MPV 9.5 Immature Gran % (Auto) 1.8 H Neut % (Auto) 88.3 H Lymph % (Auto) 2.2 L [place] % (Auto) 7.4 Eos % (Auto) 0.0 Baso % (Auto) 0.3 Lymph # (Auto) 0.4 L [place] # (Auto) 1.4 H Eos # (Auto) 0.0 Baso # (Auto) 0.1 Abs Immat Gran (auto) 0.32 H Absolute Neuts (auto) 16.1 H Absolute Nucleated RBC 0.000 Nucleated RBC % (auto) 0.0 O2 Saturation ABG pH at Pt Temp ABG pCO2 at Pt Temp ABG pO2 at Pt Temp ABG HCO3 ABG Base Excess (Actual) VBG pH 7.49 H VBG pCO2 34 VBG pO2 80 VBG HCO3 26 VBG O2 Saturation 98.0 VBG Base Excess 3.8 Sodium 135 Potassium 3.5 Chloride 98 Carbon Dioxide 29 Anion Gap 12 BUN 11 Creatinine 0.67 Estim Creat Clear Calc 139.5 Estimated GFR > 60 Random Glucose 110 Calcium 8.6 Phosphorus 2.6 L Magnesium 1.8 Troponin I High Sens B-Natriuretic Peptide Albumin 3.4 L Microbiology Microbiology Results: Microbiology 02/25/22 11:14 Blood - Venous Blood Culture - Preliminary Staphylococcus aureus Prelim: GPR Gram Stain only 02/25/22 11:14 Blood - Venous Blood Culture - Final Coag negative Staphylococcus Progress Note: A&P Assessment and plan (1) Mucus plugging of bronchi: Status: Acute (2) Status post laryngectomy: Status: Acute (3) Acute respiratory failure with hypoxia: Status: Acute (4) Hypothyroidism: Status: Acute (5) Laryngeal cancer: Status: Acute (6) DVT (deep venous thrombosis): Status: Acute (7) Respiratory arrest: Status: Acute (8) Massive hemoptysis: Status: Acute (9) Cardiac arrest: Status: Acute Plan Assessment: 61-year-old gentleman with underlying history of laryngeal cancer status post excision and radiation with underlying tracheal stoma and TEP speaking valve admitted with large volume hemoptysis, likely secondary to mechanical trauma on the background of anticoagulation use for underlying DVT further complicated by cardiac arrest with return of spontaneous circulation after 4 rounds of CPR and patient's return to baseline mental status, but requiring placement of tracheostomy and initiation of ventilatory support. Plan: Neuro: No acute issues. Patient with return to baseline mental status after CPR. Cardiac: Cardiac arrest, likely secondary to hypoxia, returned spontaneous circulation after 4 rounds of CPR. 2D echocardiogram is essentially normal. Titrated off pressors. Pulmonary: Acute hypoxic respiratory failure requiring replacement of tracheostomy in the tracheal stoma initiation ventilatory support, secondary to large volume hemoptysis, likely secondary to mechanical trauma with manual clearance of stoma by the patient. Titrated to tracheal collar. Underlying status post complete laryngectomy. Tracheostomy removed, now has tracheal mask over tracheal stoma. Patient has heavy mucus load, will start on nebulized tobramycin. Renal: No acute issues. Endo: No acute issues. Underlying hypothyroidism. GI: No acute issues. ID: Empirically covered with broad-spectrum antibiotics. Elevated lactate likely secondary to hypoxia. Heme/Onc: underlying history of DVT, previously on anticoagulation. Will recheck DVT study. Psych: No acute issues. Miscellaneous: No acute issues. Prophylaxis: Heparin Diet: pending swallow evaluation Critical care time spent: 45 minutes Quality Stroke Does the patient have a stroke diagnosis?: No VTE Prior VTE?: Yes VTE Risk Level:: Medical - moderate - high VTE Device Contraindication: N/A - Device Ordered VTE Drug Contraindication: Treatment Not Indicated
[2022-02-28] MEDS: Heparin Sodium,Porcine 5,000 UNIT/ML VIAL 5000 UNIT SUBCUT (11:00)
[2022-02-28] MEDS: vancomycin HCL 1,250 MG in 0.9 % Sodium Chloride 250 ML 166.67 MG IV (11:28)
[2022-02-28] MEDS: levoFLOXacin/D5W 750 MG/150 ML PIGGYBACK 125 MG IV (13:22)
[2022-02-28] MEDS: HYDROmorphone HCl 2 MG/ML VIAL IVPUSH ×3 (19:34→23:59)
[2022-02-28] MEDS: HYDROmorphone HCl 1 MG/ML SYRINGE IVPUSH (20:04)
[2022-02-28 21:37] LABS: Vancomycin Trough 12.8 mcg/mL (10.0-20.0)
--- NOTE | 2022-02-28 22:19 | HE.PHANOTE ---
Vancomycin Dosing Addendum Patient trough therapeutic at 12.8 . However level is predicted to continue to decrease. Patient's renal function is stable. Since we are treating possible bactermia will increase dose to 1500 mg Q12H. New expected AUC 528 with a trough of 11.7. Will draw another vancomycin level in 24 hours on 03/01 @ 2100. Niko GilillandD
[2022-03-01] VITALS (22 sets, daily range): BP systolic 98–154; BP diastolic 61–93; PULSE 69–116; RESP 10–122; TEMP 36.4–37.7; O2SAT 6–96
[2022-03-01] MEDS: vancomycin HCL 1,500 MG in 0.9 % Sodium Chloride 500 ML 333.33 MG IV (00:15)
--- NOTE | 2022-03-01 00:33 | PC.NURSE ---
Assumed care at 07:00 am. Patient alert and oriented, occasionally becomes agitated and resistant to care, IV versed with good effect. Expressed pain to chest wall/ribs, left anterior chest mostly but also diffuse throughout, endorsed both sharp and dull at times worse with breathing and coughs but also present between with constant features. Medicated with PRN dilaudid per emar, patient requesting pain medication frequently, asking when it is due repeatedly. Patient does report relief from 8/10 down to 3-4/10 after medication briefly. Patient began on trach humidified mist at 98% and 10 LPM, with SpO2 well maintained about 92-96% in betweeen suctioning, but with very frequent suctioning of stoma needs, initially was only able to pass 10 Fr catheter, and with feeling of needing suction and obvious increased work of breathing with asymmetrical chest rise, and MD notified and in to assess, and RT also invited to bedside, and MD was able to pass lubricated suction catheters 14 Fr and 18 Fr, with marked relief from patient. Blood-streak secretions and jj red secretions continue all shift long, and MD and PA aware, held a dose of heparin ppx, and PA notes ok to continue heparin overnight and also to notify for continued bloody secretions. Patient with clear lung sounds throughout. Was able to get OOB to recliner and back to bed with 2 heavy assist today. Sinus rhythm with occasional sinus tachycardia on monitor. BP much better today: max SBP 160's, mostly SBP 120's-140's, had restarted amlodipine and doxyzosin and is able to swallow these whole with sips of water. Patient taking numerous sips PO OK per MD, and nutrition consulted due to poor PO intake for approx 4 day. Patient was in and concerned for: can MD contact patient's oncology ENT/Surgeon (surgery days Tuesday/Tuesday) Dr. Roberto Ramos [phone] with [facility] in [place], to update regarding Laryngeal stoma shrinking diameter and new plan was to place tracheostomy appliance by PA, one extra dose of 1 mg dilaudid given per PA prior, and unable to pass tracheostomy appliance; patient's contacted to bring in Rebeca device that patient normally wears 3 hours in the evening every evening and then takes out when he goes to sleep, as it does not stay in well when asleep, Rebeca device successfully placed by PA. Some redness around stoma site.
[2022-03-01] MEDS: HYDROmorphone HCl 2 MG/ML VIAL IVPUSH ×6 (01:56→12:29)
[2022-03-01] MEDS: Midazolam HCl/PF 2 MG/2 ML VIAL IVPUSH ×2 (02:04→08:28)
[2022-03-01] MEDS: Heparin Sodium,Porcine 5,000 UNIT/ML VIAL 5000 UNIT SUBCUT ×2 (02:08→10:23)
[2022-03-01 05:38] LABS: VBG HCO3 35 mmol/L (22-26); VBG pCO2 51 mmHg; VBG pH 7.45 (7.32-7.43); VBG pO2 46 mmHg
[2022-03-01 05:39] LABS: MANUAL DIFF FLAG NO
[2022-03-01 05:42] LABS: Basophils Percent Auto 0.3 % (0-2); Eosinophils Absolute Auto 0.1 X10*3/uL (0.0-0.4); Eosinophils Percent Auto 0.9 % (0-4); Hematocrit 37.7 % (42.0-52.0); Hemoglobin 12.6 g/dl (14.0-18.0); Imm Gran Abs Auto 0.32 X10*3/uL (0.00-0.03); Imm Gran Pct Auto 2.7 % (0.0-0.4); Lymphocytes Absolute Auto 0.6 X10*3/uL (1.2-4.9); Lymphocytes Percent Auto 5.2 % (20-40); Mean Corpuscular HGB Conc 33.4 g/dl (31.0-36.0); Mean Corpuscular Hemoglobin 31.3 pg (27.0-33.0); Mean Corpuscular Volume 93.8 fL (80.0-98.0); Mean Platelet Volume 9.4 fL (9.4-12.4); Monocytes Absolute Auto 1.2 X10*3/uL (0.1-1.2); Neutrophils Absolute Auto 9.8 x10*3/uL (2.0-8.3); Neutrophils Percent Auto 80.9 % (45-73); Platelet Count 251 X10*3/uL (160-400); Red Blood Count 4.02 X10*6/uL (4.60-5.80); Red Cell Distribution Width 12.8 % (11.0-16.0); White Blood Count 12.1 X10*3/uL (4.8-10.8)
[2022-03-01 06:04] LABS: Albumin Level 3.1 g/dL (3.5-5.0); Anion Gap 9 (12-20); Blood Urea Nitrogen 14 mg/dL (9-16); Calcium 8.5 mg/dL (8.4-10.2); Carbon Dioxide 30 mmol/L (22-29); Chloride 99 mmol/L (96-108); Creatinine Clr Calc Pharmacy 137.5; Estimated Glomerular Filt Rate > 60; Glucose Random 117 mg/dL (60-115); Magnesium 1.7 mg/dL (1.6-2.6); Phosphorus 2.4 mg/dL (2.7-4.5); Sodium 135 mmol/L (135-145)
[2022-03-01] MEDS: Levothyroxine Sodium 75 MCG TABLET PO (06:10)
--- NOTE | 2022-03-01 07:01 | HE.PHANOTE ---
RE VANCO SCR STABLE, CONTINUE CURRENT REGIMEN, NEXT TROUGH 03/01 @2100
[2022-03-01 07:56] LABS: HBS Num1 1.46 mIU/mL (0-7.99); HBc Num1 0.09 S/CO (0.00-0.79); HBsAGNum1 0.19 S/CO (0.00-0.99); Hepatitis B Core Antibody Nonreactive (Nonreactive); Hepatitis B Surface Antigen Negative (Negative); ~HepC Num1 0.13 S/CO (0.00-0.79); ~Hepatitis B Surface Antibody NONREACTIVE (Nonreactive); ~Hepatitis C Antibody Nonreactive (Nonreactive)
[2022-03-01] MEDS: Potassium Phosphate/NS 15 MMOL/250 ML PLAST..BAG 62.5 MMOL IV (07:58)
[2022-03-01] MEDS: Doxazosin Mesylate 2 MG TABLET PO (08:02)
[2022-03-01] MEDS: amLODIPine Besylate 10 MG TABLET PO (08:02)
[2022-03-01] MEDS: Tobramycin Sulfate 80 MG/2 ML VIAL 300 MG INHALE ×2 (09:23→19:20)
[2022-03-01 09:46] LABS: Venous Blood Gas Refer to POC result
--- NOTE | 2022-03-01 09:59 | PC.NURSE ---
0950-informed Dr. Brandon of preliminary blood culture results.
[2022-03-01] MEDS: vancomycin HCL 1,500 MG in 0.9 % Sodium Chloride 500 ML 333.3 MG IV (10:28)
--- NOTE | 2022-03-01 12:52 | PM.CCPN ---
Subjective Subjective Date of Service: 03/01/22 Interval History: Mr. Mcgee was admitted to ICU on February 25 after massive hemoptysis with cardiac arrest. The patient is a 61-year-old gentleman with PMHx of laryngeal cancer, underwent laryngectomy (? 2018) at the [facility] by certified medical coder Dr. Roberto Ramos at [facility] ([phone] or [phone]), s/p chemo and XRT.? He has a laryngectomy stoma w TEP speaking valve.? Does self-care on his stoma/speaking valve.? Uses a Juliana tube 3 hours nightly.? He spends a good many hours of the day in the bathroom doing self care on the stoma and managing copious mucus production with a brush (similar to a test tube brush.? They have tried a suction machine at home, but for unclear reasons were unable to get it to work.? And able to satisfactorilly clear his copious mucus production.? Otherwise he lives at home with his , he is fully functional and independent, even drives occasionally.? He eats a regular diet, drinks water with no problem.? Also has h/o HTN and DVT, was on Eliquis.? He has a lot of pain and takes up to 7 oxycodone 10 mg pills daily.? His Negin (cell [phone]) is very knowledgeable about his medical hx. HISTORY OF PRESENT ILLNESS: The patient was BIBA on 02/25/2022 after he had massive hemoptysis at home.? EMS was called to the scene.? They reported what they thought was maybe a L of blood on the floor.? 6.0 ETT placed in the stoma.? He was BIBA to the ED.? In the ED, a fiberoptic scope confirmed placement in the trachea.? A change of ETT was attempted using FOB and boughie, resulting in a PEA arrest.? Finally a tracheostomy tube was placed in his stoma. ?The patient had ROSC after 11 minutes CPR, 2 rounds of epi.? No tracheal bleeding was noted on inspection of the trachea using FOB.? The patient was noted to be mentating normally after completion of CPR.? He was given empiric broad-spectrum antibiotics, and received 2 units of packed red blood cells.? Chest CT angiogram did not demonstrate pulmonary hemorrhage.? The patient was admitted to the intensive care unit. The patient underwent a CT of his neck which was notable for the presence of his tracheoesophageal puncture valve.? There was also a nonspecific rounded 1.2 cm lymph node on the left; consider PET to exclude a metastatic lymph node.? Lastly, multilevel cervical spondylosis including a disc osteophyte complex at C3-C4 was noted, resulting in possible severe central canal stenosis and mass effect on the cervical spinal cord; correlate for clinical signs of cervical myelopathy, follow-up with MRI of the cervical spine as clinically indicated. The patient was put on Levaquin for presumed aspiration.? Large volume hemoptysis was thought likely secondary to mechanical trauma due to the clearance of his stoma with the brush by the patient, on top of anticoagulation with Eliquis.? By the next day (February 26), the patient was off the vent, on a trach collar.? Blood cultures that were drawn in the ED grew staph; the patient was put on a empiric vancomycin while repeat cultures were pending.? For unclear reasons -- ? mucus vs aspiration of blood -- the patient subsequently required high FiO2s.? Was on 60% trach collar on 02/27, and 98% trach collar all day yesterday and last night.? CXR done early 02/28 was clear, other than minor right basilar atelectasis.? Inhaled tobramycin was added in an effort to help reduce secretions.? A venous duplex scan was negative. This morning, the patient was fully awake, alert, oriented, and appropriate.? Breathing easy and looks thoroughly non toxic.? Sat was high 90% on 98% trach collar.? We turned the FiO2 down.? Sat remained high 90?s through 60% FiO2.? At 40% FiO2, Sat was 95%.? At 28% FiO2, Sat was 95%.? On humidified room air, Sat was 87-89%.? We turned him back to 28% FiO2, Sat is 93-94%.? (The patient does not wear oxygen at home.)? Breathing easy with RR 14-18 thoughout the day.? VBG this morning 7.45/51/+10.? HR 80s, SR.? BP 121/72.? He?s afebrile.? No JVD.? Chest is CTA with normal expiratory phase, but he does have some right left paradox, and he is tender on the left side of his chest.? Review of his chest x-rays and chest CT showed no rib fractures (following the CPR).? Heart tones are soft, I heard no murmur or gallop.? His abdomen is benign.? He has no peripheral edema. LABORATORY DATA:? As below.? Notably, white count is down to 12,? Hb 12, Normal renal indices, potassium 3.0, phosphorus 2.4, magnesium 1.7. IMPRESSION: 1. S/P laryngectomy for laryngeal cancer.? May have a recurrent lymph node in his neck.? Needs to be reviewed and followed up.? Dr. Geller send his records with the Radiology reports (but not the actual scans) to the patient's certified medical coder, Dr. Ramos.? I also called Dr. Ramos today and am waiting for a call back. 2. Massive hemoptysis.? Thought 2? to mechanical trauma due to the clearance of his stoma with the brush by the patient, on top of anticoagulation w Eliquis.? But that is just a guess.? Is it possible that the hemorrhage actually came from a large vein in the upper mediastinum?? Needs to be f/u by ENT.? Waiting for a call back.? Eliquis and pharmacologic DVT prophylaxis have been d/c?d. 3. Mucus clearance: ?I talked to the patient at length about the risk of using the brush vs a suction catheter.? I cautioned him at length that the brush may have been the cause of the hemoptysis and that it might be advisable to switch to a suction catheter. ?He understands and appreciates my concern, but he insists that the suction catheters just do not work for him, and that he has to use the brush.? I have told him that that is acceptable to me, as long as he understands the risks, which he insists that he does. 4. S/P cardiac arrest.? Has made a full recovery from both circulatory and neurologic standpoints. 5. Acute respiratory failure.? Resolving.? Most likely 2? aspirated blood and atelectasis from mucus plugging.? Obviously he has to be off oxygen before he goes home.? He?s not quite there yet. 6. ID:? I have written him for one more day of empiric Levaquin for aspiration coverage.? The blood cultures are obviously contaminants (to say nothing of the fact that there was no reason for blood cultures to have been drawn in the 1st place), no need for vancomycin.? While he?s here, continue the inhaled tobramycin. 7. H/o DVT, was on Eliquis.? After this hemorrhage, his days of anticoagulation are over.? DVT study on 02/28 was negative.? DVT prophylaxis with sequential compression. 8. Deconditioning.? He will have to be able to walk independently and function independently before he can go home.? I put in a PT consult. 9. Hypokalemia.? Repleted. 10. Hypophosphatemia.? Repleted. 11. Hypomagnesemia.? Wrote him for po magnesium oxide. 12. IV access.? Very poor.? So we?ve switched all his meds to oral. 13. Nutrition.? Back on a regular diet, with added chocolate shakes. I have not discussed the lymph node nor the possible severe central canal stenosis with possible mass effect on the cervical spinal cord with the patient yet nor w his .? That can be done once he?s a bit more recovered. Stable for transfer to med surg.? Have signed out to Dr. Maurer. Time (including full chart rev, hospital course summary, multiple extensive d/w Dr. Geller, [facility] d/w pharmacy, [facility] [place] the [place], and extended d/w his ): ?2+ hrs. Critical Care Time (minutes): 0 Physical Exam Vital Signs: Vital Signs: Last Vital Signs Temp 98.9 F 03/01/22 12:00 Pulse 87 03/01/22 12:00 Resp 17 03/01/22 12:00 BP 121/72 03/01/22 12:00 Pulse Ox 94 03/01/22 12:00 O2 Del Method 03/01/22 12:00 O2 Flow Rate 98 03/01/22 02:00 FiO2 98 03/01/22 12:00 BMI result Body Mass Index 30.0 Objective Data Labs CBC & Chem 7: 03/01/22 05:28 03/01/22 05:28 Labs: Laboratory Results - last 24 hr 02/27/22 02/28/22 03/01/22 05:26 20:59 05:28 WBC 12.1 H RBC 4.02 L Hgb 12.6 L Hct 37.7 L MCV 93.8 MCH 31.3 MCHC 33.4 RDW 12.8 Plt Count 251 MPV 9.4 Immature Gran % (Auto) 2.7 H Neut % (Auto) 80.9 H Lymph % (Auto) 5.2 L [place] % (Auto) 10.0 Eos % (Auto) 0.9 Baso % (Auto) 0.3 Lymph # (Auto) 0.6 L [place] # (Auto) 1.2 Eos # (Auto) 0.1 Baso # (Auto) 0.0 Abs Immat Gran (auto) 0.32 H Absolute Neuts (auto) 9.8 H Absolute Nucleated RBC 0.000 Nucleated RBC % (auto) 0.0 VBG pH VBG pCO2 VBG pO2 VBG HCO3 VBG O2 Saturation VBG Base Excess Sodium Potassium Chloride Carbon Dioxide Anion Gap BUN Creatinine Estim Creat Clear Calc Estimated GFR Random Glucose Calcium Phosphorus Magnesium Albumin Vancomycin Trough 12.8 Hep Bs Antigen Negative Hep Bs Antibody NONREACTIVE Hep B Core Total Ab Nonreactive Hepatitis C Ab (EIA) Nonreactive 03/01/22 03/01/22 05:28 05:33 WBC RBC Hgb Hct MCV MCH MCHC RDW Plt Count MPV Immature Gran % (Auto) Neut % (Auto) Lymph % (Auto) [place] % (Auto) Eos % (Auto) Baso % (Auto) Lymph # (Auto) [place] # (Auto) Eos # (Auto) Baso # (Auto) Abs Immat Gran (auto) Absolute Neuts (auto) Absolute Nucleated RBC Nucleated RBC % (auto) VBG pH 7.45 H VBG pCO2 51 VBG pO2 46 VBG HCO3 35 H VBG O2 Saturation 73.0 VBG Base Excess 10.0 Sodium 135 Potassium 3.0 L Chloride 99 Carbon Dioxide 30 H Anion Gap 9 L BUN 14 Creatinine 0.68 Estim Creat Clear Calc 137.5 Estimated GFR > 60 Random Glucose 117 H Calcium 8.5 Phosphorus 2.4 L Magnesium 1.7 Albumin 3.1 L Vancomycin Trough Hep Bs Antigen Hep Bs Antibody Hep B Core Total Ab Hepatitis C Ab (EIA) Microbiology Microbiology Results: Microbiology 02/25/22 11:14 Blood - Venous Blood Culture - Preliminary Staphylococcus aureus Prelim: GPR Gram Stain only 02/27/22 10:41 Blood - Venous Blood Culture - Preliminary No growth after 24 hours. 02/27/22 10:51 Blood - Venous Blood Culture - Preliminary No growth after 24 hours. 02/25/22 11:14 Blood - Venous Blood Culture - Final Coag negative Staphylococcus Quality Stroke Does the patient have a stroke diagnosis?: No VTE Prior VTE?: Yes VTE Risk Level:: Medical - moderate - high VTE Device Contraindication: N/A - Device Ordered VTE Drug Contraindication: Treatment Not Indicated
--- NOTE | 2022-03-01 13:15 | MHC.CLN ---
F/U DISCUSSED PT AT ROUNDS WITH MD PT WAS NPO X 3 DAYS PER MD START REGULAR DIET AND PT REQUESTING ENSURE TID (PREFERS NICO-KITCHEN NOTIFIED) ENSURE ENLIVE TID TO PROVIDE 1050KCALS, 60G PROTEIN MONITOR PO INTAKE CLOSELY
[2022-03-01] MEDS: clonazePAM 0.5 MG TABLET PO ×2 (14:39→21:01)
[2022-03-01] MEDS: levoFLOXacin/D5W 750 MG/150 ML PIGGYBACK 100 MG IV (14:42)
--- NOTE | 2022-03-01 15:05 | MHC.CM.PN ---
Pt continues care in ICU: requiring high doses of pain medication - baseline anxiety: meds changed to assist with anxiety. discussed possible transfer to [facility] where pt had been receiving care for his trach. Will f/u on 03/02 on this possibility. Pt was independent prior to admission and was to return to home with no additional services. CM to follow
[2022-03-01] MEDS: Lidocaine 4 % Patch ADH..PATCH 1 PATCH TRANSDERMA (16:26)
--- NOTE | 2022-03-01 17:06 | MHC.SLORD ---
Speech Language Pathology Order Status: Received order for bedside dysphagia evaluation. Per trach protocol, WILDLIFE OFFICER eval to be performed w/ RT. Discussed w/ RT- Plan to schedule for tomorrow.
--- NOTE | 2022-03-01 17:38 | PC.NURSE ---
1415-pt stood from recliner with 2 standby assist. was able to march in place to strengthen and stretch. pt tolerated well. 1500-informed Dr. Irene that unable to obtain new IV line. Attempted with vein finder, unsuccessfully. Dr. irene attempted IV access in rt shoulder, but not able to obtain access. Received verbal order from Dr. Irene to keep the [address] for now. Dr[address] Irene titrated O2 down to 50% and O2 sats remain in the mid-90's. Pt continues to have pain and anxiety regarding suctioning. 1630-Dr. irene titrated O2 down to 28%. pt sat's 94%.
[2022-03-01] MEDS: Sodium,Potassium Phosphates POWD.PACK 2 PACKET PO (23:10)
[2022-03-01] MEDS: Potassium Chloride Packet 20 MEQ PACKET 40 MEQ PO (23:10)
[2022-03-02] VITALS (10 sets, daily range): BP systolic 127–165; BP diastolic 73–87; PULSE 81–96; RESP 14–20; TEMP 36.2–37.4; O2SAT 91–95; BMI 30.4
[2022-03-02] MEDS: clonazePAM 0.5 MG TABLET PO ×2 (01:40→21:19)
[2022-03-02] MEDS: Levothyroxine Sodium 75 MCG TABLET PO (05:58)
--- NOTE | 2022-03-02 07:00 | PC.NURSE ---
Shift eval 7p-7a: Patient alert, mildly anxious, requests to be suctioned at least every 2 hours. Lungs remain clear/dim. O2 >90. Suctioned patient at approx 2100, 0015, and 0600. Respiratory therapy suctioning in between times I suctioned. RT suctioned after 1am suction and inline secretions were bright red. at approx 4, patient asked to suction again, and his oxygen was >90, no resp distress. Adrian CHOI made aware and came and talked to the patient - educated patient that unless patient is in distress or we hear congestions, or oxygen low, it is not necessary to suction so many times because it is causing irritation and bleeding. Patient complied - waited to be suctioned until 6am. Sputum brown / red tinged each time, stoma raw looking, red, but intact. Patient has stoma brush he brought from home that he uses frequently, sticking into stoma - patient pulling up blood scabs from stoma with brush. Educated patient by the RN, RT, PA, and MD to not excessively suction or use brush. Hector tube put in for approx 3 hours overnight (managed by RT). Pain management - Patient complains of stoma / chest pain that is chronic and worse now. Dr Brandon adjusted med orders - 4mg PO Dilaudid given x4 (see MAR) - patient reports meds take edge off. Vitals stable, afebrile. Repos independently.
[2022-03-02] MEDS: Tobramycin Sulfate 80 MG/2 ML VIAL 300 MG INHALE ×2 (08:56→20:22)
[2022-03-02] MEDS: Lidocaine 4 % Patch ADH..PATCH 1 PATCH TRANSDERMA (09:38)
[2022-03-02] MEDS: amLODIPine Besylate 10 MG TABLET PO (09:39)
[2022-03-02] MEDS: Gabapentin 100 MG CAPSULE PO ×3 (09:39→21:19)
[2022-03-02] MEDS: Doxazosin Mesylate 2 MG TABLET PO (09:41)
--- NOTE | 2022-03-02 10:25 | MHC.HEMONC ---
1020-report called to JADEN Castellon on IM. informed pt of room change and pt text with updated room number.
--- NOTE | 2022-03-02 10:46 | PC.NURSE ---
1050-pt transferred via bed with ambulatory service representative x2. VSS, pt belongings with pt upon transfer.
[2022-03-02] MEDS: HYDROmorphone HCl 2 MG TABLET PO ×2 (12:44→18:04)
[2022-03-02] MEDS: levoFLOXacin 750 MG TABLET PO (15:26)
--- NOTE | 2022-03-02 18:26 | PC.NURSE ---
report taken from ROCK CRUSHER OPERATOR. pt arrived to unit with son. Pt req suctioning and prn pain meds. Pt was able to ambulate on O2 with this publicity writer and RT down the donaldson to A pod and back multiple times w/o complications. pt exp 14 runt VT while in recliner, pt stated he did not feel any sort of abnormality or pain, had no c/o. pt stated he was moving around at the time. informed and sent picture of VT on tele. no new orders at this time. safety and fall precautions in place. call ford within reach.
[2022-03-02] MEDS: Magnesium Oxide 400 MG TABLET PO (21:20)
[2022-03-03] VITALS (8 sets, daily range): BP systolic 98–168; BP diastolic 61–95; PULSE 82–97; RESP 16–21; TEMP 36.3–37.1; O2SAT 88–94; BMI 29.2
[2022-03-03] MEDS: clonazePAM 0.5 MG TABLET PO ×2 (01:20→21:06)
[2022-03-03] MEDS: Levothyroxine Sodium 75 MCG TABLET PO (05:12)
[2022-03-03] MEDS: Lidocaine 4 % Patch ADH..PATCH 1 PATCH TRANSDERMA (08:52)
[2022-03-03] MEDS: Doxazosin Mesylate 2 MG TABLET PO (08:52)
[2022-03-03] MEDS: amLODIPine Besylate 10 MG TABLET PO (08:52)
[2022-03-03] MEDS: Gabapentin 100 MG CAPSULE PO ×3 (08:52→21:07)
[2022-03-03] MEDS: Magnesium Oxide 400 MG TABLET PO ×3 (08:52→21:06)
[2022-03-03 10:48] LABS: Anion Gap 10 (12-20); Blood Urea Nitrogen 11 mg/dL (9-16); Calcium 8.3 mg/dL (8.4-10.2); Carbon Dioxide 29 mmol/L (22-29); Chloride 99 mmol/L (96-108); Creatinine Clr Calc Pharmacy 117.5; Estimated Glomerular Filt Rate > 60; Glucose Random 131 mg/dL (60-115); Sodium 135 mmol/L (135-145)
[2022-03-03] MEDS: Acetylcysteine 10 % 400 MG/4 ML VIAL INHALE ×2 (10:55→20:01)
[2022-03-03] MEDS: Albuterol Sulfate (0.083%) 2.5 MG/3 ML VIAL.NEB INHALE ×2 (11:03→20:01)
[2022-03-03] MEDS: Tobramycin Sulfate 80 MG/2 ML VIAL 300 MG INHALE ×2 (11:37→20:24)
--- NOTE | 2022-03-03 13:40 | P.PNIM_ITS ---
Subjective Subjective Date of Service: 03/03/22 Interval History: the patient was seen and evaluated this morning Laying in bed, feels comfortable overall Complaining of secretions Denies any fever, chills or shortness of breath No reported other overnight events. Review of Systems Systemic review: No fever, chills or weakness No chest pain, palpitation Coughing and require oxygen supplement No abdominal pain, nausea or vomiting No urinary symptoms No any rash or wounds Physical Exam Vital Signs: Vital Signs: Last Vital Signs Temp 97.8 F 03/03/22 12:00 Pulse 96 03/03/22 12:00 Resp 18 03/03/22 12:00 BP 125/65 03/03/22 12:00 Pulse Ox 91 L 03/03/22 12:00 O2 Del Method 03/03/22 12:00 O2 Flow Rate 5 03/03/22 12:00 FiO2 30 03/03/22 12:00 BMI result Body Mass Index 29.2 Const: Other: Constitutional : Alert, oriented, not in distress Neck : Normal inspection, Supple, Stoma clean with no surrounding erythema or drainage Cardiovascular : RRR, no JVP, no lower extremity edema Respiratory : fair bilateral air entry, no wheezes but turbulent air movement suggestive of mucus congestion, oxygen supplement Gastrointestinal: soft, lax, Normal bowel sounds, Non tender Skin : Warm, Dry Neurological : Alert & oriented x3, No focal deficit , CN 2-12 within normal Objective Data Active Medications Acetylcysteine (Acetylcysteine 10 % 400 Mg/4 Ml Vial) 400 mg INHALE [facility] Last Admin: 03/03/22 10:55 Dose: 400 mg Documented By: DAYNE Albuterol Sulfate (Albuterol Sulfate (0.083%) 2.5 Mg/3 Ml Vial.Neb) 2.5 mg [facility] Last Admin: 03/03/22 11:03 Dose: 2.5 mg Documented By: DAYNE Amlodipine Besylate (Amlodipine Besylate 10 Mg Tablet) 10 mg PO DAILY [facility]; Protocol Last Admin: 03/03/22 08:52 Dose: 10 mg Documented By: FELICITY Clonazepam (Clonazepam 0.5 Mg Tablet) 0.5 mg PO BEDTIME [facility] Last Admin: 03/02/22 21:19 Dose: 0.5 mg Documented By: DIANE Clonazepam (Clonazepam 0.5 Mg Tablet) 0.5 mg PO TID PRN PRN Reason: Anxiety Last Admin: 03/03/22 01:20 Dose: 0.5 mg Documented By: DINORA Doxazosin Mesylate (Doxazosin Mesylate 2 Mg Tablet) 2 mg PO DAILY [facility]; Protocol Last Admin: 03/03/22 08:52 Dose: 2 mg Documented By: FELICITY Gabapentin (Gabapentin 100 Mg Capsule) 100 mg PO TID [facility] Last Admin: 03/03/22 08:52 Dose: 100 mg Documented By: FELICITY Guaifenesin (Guaifenesin La 600 Mg Tab.Er.12h) 1,200 mg PO BEDTIME [facility] Hydromorphone HCl (Hydromorphone Hcl 4 Mg Tablet) 4 mg PO Q2H PRN PRN Reason: Pain, Moderate (Pain Scale 4-6 Last Admin: 03/03/22 12:32 Dose: 4 mg Documented By: FELICITY Hydromorphone HCl (Hydromorphone Hcl 2 Mg Tablet) 2 mg PO Q4H PRN PRN Reason: Pain, Mild (Pain Scale 1-3) Last Admin: 03/02/22 18:04 Dose: 2 mg Documented By: ADOLFO Levothyroxine Sodium (Levothyroxine Sodium 75 Mcg Tablet) 75 mcg PO DAILY@0630 [facility] Last Admin: 03/03/22 05:12 Dose: 75 mcg Documented By: DINORA Lidocaine (Lidocaine 4 % Patch Adh..Patch) 1 patch TRANSDERMA DAILY [facility]; Protocol Last Admin: 03/03/22 08:52 Dose: 1 patch Documented By: FELICITY Magnesium Oxide (Magnesium Oxide 400 Mg Tablet) 400 mg PO TID [facility] Last Admin: 03/03/22 08:52 Dose: 400 mg Documented By: FELICITY Pharmacy Consult (Consult Rx Perform Med Rec) 1 each MISCELLANE ONCE PRN PRN Reason: Consult order Pharmacy Consult (Consult Rx Vancomycin Dosing) 1 each MISCELLANE DAILY PRN PRN Reason: Consult order Tobramycin Sulfate (Tobramycin Sulfate 80 Mg/2 Ml Vial) 300 mg INHALE Q12H [facility] Last Admin: 03/03/22 11:37 Dose: 300 mg Documented By: DAYNE Labs CBC & Chem 7: 03/01/22 05:28 03/03/22 10:17 Labs: Laboratory Results - last 24 hr 03/03/22 10:17 Anion Gap 10 L Estim Creat Clear Calc 117.5 Estimated GFR > 60 Random Glucose 131 H Calcium 8.3 L Microbiology Microbiology Results: Microbiology 02/25/22 11:14 Blood Culture - Final Blood - Venous 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 Upon changing ETT he had a PA arrest requiring CPR for 11 minutes with returning back to normal mentation after CPR. Admitted to ICU. Massive hemoptysis No recurrence of attack Eliquis still on hold, patient questioning the need of it Likely related to injury by brush use at home Pulmonology evaluation pending Mucus plug Discussed about the usage of suction catheter VS brush He would continue to do what he usually does at home Post cardiac arrest Full recovery from cardiology call neurological standpoint Acute hypoxic respiratory failure Secondary to aspiration of blood and atelectasis CPT, Mucinex Mucomyst nebulizer Wean oxygen down as tolerated Started on tobramycin, to continue History of DVT Was on Eliquis, after this massive hemorrhage will keep it on hold for now as he is considered in remission from cancer To be followed by his primary oncology team for further discussions Physical deconditioning PT evaluation Electrolyte imbalance Repleted, follow as needed Pain management Wean down pain medications as tolerated Consider outpatient pain referral Anxiety Cut down clonidine as tolerated Start Lexapro DVT PPX SCDs for now The patient will need overnight hospital stay to continue titrating down oxygen supplement and reading underlying atelectasis. Quality Stroke Does the patient have a stroke diagnosis?: No VTE Prior VTE?: Yes VTE Risk Level:: Medical - moderate - high VTE Device Contraindication: N/A - Device Ordered VTE Drug Contraindication: Treatment Not Indicated
--- NOTE | 2022-03-03 14:39 | MHC.CM.PN ---
per rounds pt still on no dc date at this time
[2022-03-03] MEDS: Potassium Chloride Packet 20 MEQ PACKET 40 MEQ PO (15:46)
[2022-03-03] MEDS: guaiFENesin LA 600 MG TAB.ER.12H 1200 MG PO (21:06)
[2022-03-04 03:33] VITALS: BP 138/70; PULSE 80; RESP 15; TEMP 36.3; O2SAT 92
[2022-03-04 06:00] VITALS: BMI 29.9
[2022-03-04] MEDS: Levothyroxine Sodium 75 MCG TABLET PO (06:12)
[2022-03-04 06:31] LABS: Anion Gap 10 (12-20); Blood Urea Nitrogen 14 mg/dL (9-16); Carbon Dioxide 28 mmol/L (22-29); Chloride 98 mmol/L (96-108); Creatinine Clr Calc Pharmacy 119.1; Estimated Glomerular Filt Rate > 60; Glucose Random 101 mg/dL (60-115); Potassium 3.2 mmol/L (3.3-5.1); Sodium 133 mmol/L (135-145)
[2022-03-04] MEDS: Albuterol Sulfate (0.083%) 2.5 MG/3 ML VIAL.NEB INHALE (07:29)
[2022-03-04] MEDS: Acetylcysteine 10 % 400 MG/4 ML VIAL INHALE (07:29)
[2022-03-04 07:39] VITALS: PULSE 94; RESP 20; O2SAT 94
[2022-03-04 08:00] VITALS: BP 154/83; PULSE 80; RESP 20; TEMP 37.1; O2SAT 93
[2022-03-04] MEDS: Tobramycin Sulfate 80 MG/2 ML VIAL 300 MG INHALE (08:30)
[2022-03-04 08:41] VITALS: PULSE 94; RESP 20; O2SAT 91
[2022-03-04] MEDS: Gabapentin 100 MG CAPSULE PO ×2 (09:38→14:11)
[2022-03-04] MEDS: Doxazosin Mesylate 2 MG TABLET PO (09:38)
[2022-03-04] MEDS: Magnesium Oxide 400 MG TABLET PO ×2 (09:38→14:11)
[2022-03-04] MEDS: Lidocaine 4 % Patch ADH..PATCH 1 PATCH TRANSDERMA (09:38)
[2022-03-04] MEDS: amLODIPine Besylate 10 MG TABLET PO (09:38)
--- NOTE | 2022-03-04 09:39 | P.CONPL_ITS ---
History of Present Illness History of Present Illness Consult date: 03/04/22 Requesting physician: Homer Arroyo Reason for consult: hypoxemia Chief complaint: Massive hemotysis, cardiac arrest Narrative: I have seen this 61 years old very pleasant gentleman for pulmonary evaluation. 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 He has lived with the a well-healed of laryngeal stoma, a functioning talking valve , and daily cleaning of his stoma with a brush to clear the mucus secretions. He has tried the suction machine with suction catheter to clear his airways but that did not work. On 02/25 he was admitted because of excessive bleeding from the laryngeal stoma caused by the use of brush as well as background of anticoagulation with Eliqu is. Prior to that he does not have any chronic pulmonary issues and has not needed oxygen at home. Luckily he has not been getting any recurrent respiratory infections. On 02/25 in the emergency room he had cardiac arrest resuscitated successfully but with prolonged resuscitative efforts, has subsequently his the O2 sats for weight down mental status somewhat obtunded, he was admitted to intensive care unit for close watch and active treatment, capped on the went for 24 hours and successfully extubated the next day. Blood cultures grew Staph but probably contaminant, he was started on vancomycin which has been stopped, Patient is communicating well with his the talking device. He is eating regular food without any problem. cardiac status is remaining stable He is still on trach mask and requiring O2 6 L/minute Review of Systems Review of Systems: Yes all other systems are reviewed and are negative [facility] Past Medical History Medical History (Updated 03/04/22 @ 09:56 by Kofi Alva MD) Atelectasis DVT (deep venous thrombosis) HTN (hypertension) Hypothyroidism Laryngeal cancer Social History Social History (Updated 02/25/22 @ 11:51 by Gabrielle Barth DO) Patient Tobacco Use Status: Tobacco use Unknown service: No Current occupational status: disabled Meds Allergies Allergy/AdvReac Type Severity Reaction Status Date / Time piperacillin [From Zosyn] Allergy Rash Verified 02/25/22 13:06 tazobactam [From Zosyn] Allergy Rash Verified 02/25/22 13:06 Active Medications: Current Medications Acetylcysteine (Acetylcysteine 10 % 400 Mg/4 Ml Vial) 400 mg INHALE RBID [facility] Last Admin: 03/04/22 07:29 Dose: 400 mg Albuterol Sulfate (Albuterol Sulfate (0.083%) 2.5 Mg/3 Ml Vial.Neb) 2.5 mg INHALE RBID [facility] Last Admin: 03/04/22 07:29 Dose: 2.5 mg Amlodipine Besylate (Amlodipine Besylate 10 Mg Tablet) 10 mg PO DAILY [facility]; Protocol Last Admin: 03/03/22 08:52 Dose: 10 mg Clonazepam (Clonazepam 0.5 Mg Tablet) 0.5 mg PO BEDTIME [facility] Last Admin: 03/03/22 21:06 Dose: 0.5 mg Clonazepam (Clonazepam 0.5 Mg Tablet) 0.5 mg PO TID PRN PRN Reason: Anxiety Last Admin: 03/03/22 01:20 Dose: 0.5 mg Doxazosin Mesylate (Doxazosin Mesylate 2 Mg Tablet) 2 mg PO DAILY [facility]; Protocol Last Admin: 03/03/22 08:52 Dose: 2 mg Gabapentin (Gabapentin 100 Mg Capsule) 100 mg PO TID [facility] Last Admin: 03/03/22 21:07 Dose: 100 mg Guaifenesin (Guaifenesin La 600 Mg Tab.Er.12h) 1,200 mg PO BEDTIME [facility] Last Admin: 03/03/22 21:06 Dose: 1,200 mg Hydromorphone HCl (Hydromorphone Hcl 4 Mg Tablet) 4 mg PO Q2H PRN PRN Reason: Pain, Moderate (Pain Scale 4-6 Last Admin: 03/04/22 06:09 Dose: 4 mg Levothyroxine Sodium (Levothyroxine Sodium 75 Mcg Tablet) 75 mcg PO DAILY@0630 [facility] Last Admin: 03/04/22 06:12 Dose: 75 mcg Lidocaine (Lidocaine 4 % Patch Adh..Patch) 1 patch TRANSDERMA DAILY [facility]; Protocol Last Admin: 03/03/22 08:52 Dose: 1 patch Magnesium Oxide (Magnesium Oxide 400 Mg Tablet) 400 mg PO TID [facility] Last Admin: 03/03/22 21:06 Dose: 400 mg Pharmacy Consult (Consult Rx Perform Med Rec) 1 each MISCELLANE ONCE PRN PRN Reason: Consult order Pharmacy Consult (Consult Rx Vancomycin Dosing) 1 each MISCELLANE DAILY PRN PRN Reason: Consult order Tobramycin Sulfate (Tobramycin Sulfate 80 Mg/2 Ml Vial) 300 mg INHALE Q12H GUILLERMO Last Admin: 03/04/22 08:30 Dose: 300 mg Home Medications Medication Instructions Recorded Confirmed Last Taken Type amlodipine 10 mg tablet 1 tab PO DAILY 02/25/22 02/25/22 Unknown History apixaban 5 mg tablet (Eliquis) 1 tab PO BID 02/25/22 02/25/22 Unknown History doxazosin 2 mg tablet 1 tab PO DAILY 02/25/22 02/25/22 Unknown History gabapentin 100 mg capsule 1 cap PO TID 02/25/22 02/25/22 Unknown History ipratropium bromide 42 mcg (0.06 2 spray intranasal TID PRN Allergy 02/25/22 02/25/22 Unknown History %) nasal spray Symptoms levothyroxine 75 mcg tablet 1 tab PO DAILY 02/25/22 02/25/22 Unknown History oxycodone 10 mg tablet 10 mg PO 7XD PRN Pain 02/25/22 02/25/22 Unknown History Physical Exam Vital Signs: Vital Signs: Last Vital Signs Temp 98.7 F 03/04/22 08:00 Pulse 94 03/04/22 08:41 Resp 20 03/04/22 08:41 BP 154/83 H 03/04/22 08:00 Pulse Ox 93 03/04/22 08:00 O2 Del Method 03/04/22 08:00 O2 Flow Rate 5 03/04/22 03:33 FiO2 30 03/04/22 03:33 BMI result Body Mass Index 29.9 Const: General: comfortable, no acute distress, alert and awake Orien tation/consciousness: patient oriented x3 HEENT: Other: Laryngectomy stoma is clear, no active bleeding and no visible secretions. Head: Yes normal to inspection General nose exam: No nasal polyps present and No nasal discharge present Face and sinus: Yes sinuses nontender Mouth: oropharynx normal Throat: Yes posterior oropharynx normal Eyes: General: appearance normal, both eyes and all related structures Neck: Other: Laryngectomy stoma, well healed and clean. Neck: Yes normal visual inspection, Yes no lymphadenopathy, Yes trachea midline and Yes no JVD Thyroid: Thyroid normal Chest: Chest palpation & inspection: normal inspection of the chest, normal palpation of entire chest wall and tenderness (Mild tenderness over the left chest wall, after resuscitation) Resp: Other: Percussion note is resonant, he has good breath sounds on both sides, lungs clear at this time no wheezes or rhonchi. Cardio: Palpation: normal PMI Rate: regular rate Rhythm: regular rhythm Heart sounds: no gallops and no murmurs Peripheral pulses: Peripheral pulses 2+ throughout GI: Palpation (GI): Soft to palpation, nontender, No hepatosplenomegaly pres ent and no masses Auscultation: normal bowel sounds Back/Spine/Pelvis: Thoracic/Lumbar Spine: thoracic and lumbar spine normal to inspection Skin: General skin exam: no rashes or lesions noted Neuro: General: patient oriented x3 and no focal motor deficits Cranial nerves: Yes CN's II-XII intact bilaterally Extrem: General: Yes normal to inspection, Yes no clubbing, cyanosis or edema and Yes no calf tenderness Psych: Speech and movement: Normal speech and movement present Results Laboratory Findings CBC and BMP: 03/01/22 05:28 03/04/22 05:33 Abnormal lab findings: Abnormal Labs 02/25/22 02/25/22 02/25/22 10:25 11:14 11:14 WBC 23.1 H RBC 4.25 L Hgb 13.5 L Hct MCV 101.6 H MPV 9.1 L Immature Gran % (Auto) Neut % (Auto) Lymph % (Auto) Lymph # (Auto) [place] # (Auto) Abs Immat Gran (auto) Absolute Neuts (auto) Neutrophils % (Manual) 78 H Band Neutrophils % 7 H Lymphocytes % (Manual) 8 L Abs Neuts (Manual) 19.6 H ABG pH at Pt Temp ABG pCO2 at Pt Temp ABG pO2 at Pt Temp ABG HCO3 VBG pH VBG HCO3 Sodium Potassium Carbon Dioxide Anion Gap POC Glucose 174 H Random Glucose Lactic Acid Lactic Acid F/U @ 2Hr Lactic Acid F/U @ 4Hr Calcium Phosphorus Magnesium AST Alkaline Phosphatase Ammonia B-Natriuretic Peptide Total Protein Albumin Urine Protein Urine Glucose (UA) Urine Blood Urine RBC Salicylates Urine Opiates Screen Urine Fentanyl Screen U Benzodiazepines Scrn U Marijuana (THC) Screen Crossmatch See Detail 02/25/22 02/25/22 02/25/22 11:14 11:14 11:14 WBC RBC Hgb Hct MCV MPV Immature Gran % (Auto) Neut % (Auto) Lymph % (Auto) Lymph # (Auto) [place] # (Auto) Abs Immat Gran (auto) Absolute Neuts (auto) Neutrophils % (Manual) Band Neutrophils % Lymphocytes % (Manual) Abs Neuts (Manual) ABG pH at Pt Temp ABG pCO2 at Pt Temp ABG pO2 at Pt Temp ABG HCO3 VBG pH VBG HCO3 Sodium Potassium Carbon Dioxide 15 L Anion Gap 23 H POC Glucose Random Glucose 224 H Lactic Acid 12.3 H* Lactic Acid F/U @ 2Hr Lactic Acid F/U @ 4Hr Calcium Phosphorus Magnesium 2.8 H AST Alkaline Phosphatase 141 H Ammonia 101 H B-Natriuretic Peptide Total Protein 6.4 L Albumin Urine Protein Urine Glucose (UA) Urine Blood Urine RBC Salicylates < 5.0 L Urine Opiates Screen Urine Fentanyl Screen U Benzodiazepines Scrn U Marijuana (THC) Screen Crossmatch 02/25/22 02/25/22 02/25/22 13:20 13:28 13:39 WBC 23.6 H RBC Hgb Hct MCV MPV 9.1 L Immature Gran % (Auto) Neut % (Auto) Lymph % (Auto) Lymph # (Auto) [place] # (Auto) Abs Immat Gran (auto) Absolute Neuts (auto) Neutrophils % (Manual) Band Neutrophils % Lymphocytes % (Manual) Abs Neuts (Manual) ABG pH at Pt Temp ABG pCO2 at Pt Temp ABG pO2 at Pt Temp ABG HCO3 VBG pH VBG HCO3 Sodium Potassium Carbon Dioxide Anion Gap POC Glucose Random Glucose Lactic Acid Lactic Acid F/U @ 2Hr 5.6 H* Lactic Acid F/U @ 4Hr Calcium Phosphorus Magnesium AST Alkaline Phosphatase Ammonia B-Natriuretic Peptide Total Protein Albumin Urine Protein Urine Glucose (UA) Urine Blood Urine RBC Salicylates Urine Opiates Screen POSITIVE H Urine Fentanyl Screen POSITIVE H U Benzodiazepines Scrn POSITIVE H U Marijuana (THC) Screen POSITIVE H Crossmatch 02/25/22 02/25/22 02/25/22 13:39 14:01 16:04 WBC RBC Hgb Hct MCV MPV Immature Gran % (Auto) Neut % (Auto) Lymph % (Auto) Lymph # (Auto) [place] # (Auto) Abs Immat Gran (auto) Absolute Neuts (auto) Neutrophils % (Manual) Band Neutrophils % Lymphocytes % (Manual) Abs Neuts (Manual) ABG pH at Pt Temp 7.32 L ABG pCO2 at Pt Temp 30 L ABG pO2 at Pt Temp 149 H ABG HCO3 16 L VBG pH VBG HCO3 Sodium Potassium Carbon Dioxide Anion Gap POC Glucose Random Glucose Lactic Acid Lactic Acid F/U @ 2Hr Lactic Acid F/U @ 4Hr 4.5 H* Calcium Phosphorus Magnesium AST Alkaline Phosphatase Ammonia B-Natriuretic Peptide Total Protein Albumin Urine Protein 1+ H Urine Glucose (UA) 100 H Urine Blood 3+ H Urine RBC 15-29 H Salicylates Urine Opiates Screen Urine Fentanyl Screen U Benzodiazepines Scrn U Marijuana (THC) Screen Crossmatch 02/26/22 02/26/22 02/26/22 05:21 05:21 05:22 WBC 17.2 H RBC 3.96 L Hgb 12.5 L Hct 36.6 L MCV MPV 9.2 L Immature Gran % (Auto) 1.0 H Neut % (Auto) 91.6 H Lymph % (Auto) 2.6 L Lymph # (Auto) 0.4 L [place] # (Auto) Abs Immat Gran (auto) 0.17 H Absolute Neuts (auto) 15.8 H Neutrophils % (Manual) Band Neutrophils % Lymphocytes % (Manual) Abs Neuts (Manual) ABG pH at Pt Temp ABG pCO2 at Pt Temp ABG pO2 at Pt Temp ABG HCO3 VBG pH 7.46 H VBG HCO3 21 L Sodium Potassium Carbon Dioxide Anion Gap POC Glucose Random Glucose 122 H D Lactic Acid Lactic Acid F/U @ 2Hr Lactic Acid F/U @ 4Hr Calcium 8.0 L Phosphorus Magnesium AST 67 H Alkaline Phosphatase Ammonia B-Natriuretic Peptide Total Protein 5.3 L Albumin 3.1 L Urine Protein Urine Glucose (UA) Urine Blood Urine RBC Salicylates Urine Opiates Screen Urine Fentanyl Screen U Benzodiazepines Scrn U Marijuana (THC) Screen Crossmatch 02/27/22 02/27/22 02/27/22 05:26 05:26 05:28 WBC 15.0 H RBC 4.36 L Hgb 13.9 L Hct 41.2 L MCV MPV Immature Gran % (Auto) 1.3 H Neut % (Auto) 88.0 H Lymph % (Auto) 3.9 L Lymph # (Auto) 0.6 L [place] # (Auto) Abs Immat Gran (auto) 0.19 H Absolute Neuts (auto) 13.2 H Neutrophils % (Manual) Band Neutrophils % Lymphocytes % (Manual) Abs Neuts (Manual) ABG pH at Pt Temp ABG pCO2 at Pt Temp ABG pO2 at Pt Temp ABG HCO3 VBG pH 7.46 H VBG HCO3 Sodium Potassium Carbon Dioxide Anion Gap POC Glucose Random Glucose Lactic Acid Lactic Acid F/U @ 2Hr Lactic Acid F/U @ 4Hr Calcium Phosphorus 2.3 L Magnesium AST Alkaline Phosphatase Ammonia B-Natriuretic Peptide Total Protein Albumin Urine Protein Urine Glucose (UA) Urine Blood Urine RBC Salicylates Urine Opiates Screen Urine Fentanyl Screen U Benzodiazepines Scrn U Marijuana (THC) Screen Crossmatch 02/28/22 02/28/22 02/28/22 00:22 01:01 01:01 WBC RBC Hgb Hct MCV MPV Immature Gran % (Auto) Neut % (Auto) Lymph % (Auto) Lymph # (Auto) [place] # (Auto) Abs Immat Gran (auto) Absolute Neuts (auto) Neutrophils % (Manual) Band Neutrophils % Lymphocytes % (Manual) Abs Neuts (Manual) ABG pH at Pt Temp ABG pCO2 at Pt Temp 29 L ABG pO2 at Pt Temp 54 L ABG HCO3 19 L VBG pH VBG HCO3 Sodium Potassium 3.1 L Carbon Dioxide Anion Gap POC Glucose Random Glucose Lactic Acid Lactic Acid F/U @ 2Hr Lactic Acid F/U @ 4Hr Calcium Phosphorus Magnesium AST Alkaline Phosphatase Ammonia B-Natriuretic Peptide 234 H Total Protein Albumin Urine Protein Urine Glucose (UA) Urine Blood Urine RBC Salicylates Urine Opiates Screen Urine Fentanyl Screen U Benzodiazepines Scrn U Marijuana (THC) Screen Crossmatch 02/28/22 02/28/22 02/28/22 05:15 05:15 05:24 WBC 18.2 H RBC 4.07 L Hgb 13.0 L Hct 38.5 L MCV MPV Immature Gran % (Auto) 1.8 H Neut % (Auto) 88.3 H Lymph % (Auto) 2.2 L Lymph # (Auto) 0.4 L [place] # (Auto) 1.4 H Abs Immat Gran (auto) 0.32 H Absolute Neuts (auto) 16.1 H Neutrophils % (Manual) Band Neutrophils % Lymphocytes % (Manual) Abs Neuts (Manual) ABG pH at Pt Temp ABG pCO2 at Pt Temp ABG pO2 at Pt Temp ABG HCO3 VBG pH 7.49 H VBG HCO3 Sodium Potassium Carbon Dioxide Anion Gap POC Glucose Random Glucose Lactic Acid Lactic Acid F/U @ 2Hr Lactic Acid F/U @ 4Hr Calcium Phosphorus 2.6 L Magnesium AST Alkaline Phosphatase Ammonia B-Natriuretic Peptide Total Protein Albumin 3.4 L Urine Protein Urine Glucose (UA) Urine Blood Urine RBC Salicylates Urine Opiates Screen Urine Fentanyl Screen U Benzodiazepines Scrn U Marijuana (THC) Screen Crossmatch 03/01/22 03/01/22 03/01/22 05:28 05:28 05:33 WBC 12.1 H RBC 4.02 L Hgb 12.6 L Hct 37.7 L MCV MPV Immature Gran % (Auto) 2.7 H Neut % (Auto) 80.9 H Lymph % (Auto) 5.2 L Lymph # (Auto) 0.6 L [place] # (Auto) Abs Immat Gran (auto) 0.32 H Absolute Neuts (auto) 9.8 H Neutrophils % (Manual) Band Neutrophils % Lymphocytes % (Manual) Abs Neuts (Manual) ABG pH at Pt Temp ABG pCO2 at Pt Temp ABG pO2 at Pt Temp ABG HCO3 VBG pH 7.45 H VBG HCO3 35 H Sodium Potassium 3.0 L Carbon Dioxide 30 H Anion Gap 9 L POC Glucose Random Glucose 117 H Lactic Acid Lactic Acid F/U @ 2Hr Lactic Acid F/U @ 4Hr Calcium Phosphorus 2.4 L Magnesium AST Alkaline Phosphatase Ammonia B-Natriuretic Peptide Total Protein Albumin 3.1 L Urine Protein Urine Glucose (UA) Urine Blood Urine RBC Salicylates Urine Opiates Screen Urine Fentanyl Screen U Benzodiazepines Scrn U Marijuana (THC) Screen Crossmatch 03/03/22 03/04/22 10:17 05:33 WBC RBC Hgb Hct MCV MPV Immature Gran % (Auto) Neut % (Auto) Lymph % (Auto) Lymph # (Auto) [place] # (Auto) Abs Immat Gran (auto) Absolute Neuts (auto) Neutrophils % (Manual) Band Neutrophils % Lymphocytes % (Manual) Abs Neuts (Manual) ABG pH at Pt Temp ABG pCO2 at Pt Temp ABG pO2 at Pt Temp ABG HCO3 VBG pH VBG HCO3 Sodium 133 L Potassium 3.0 L 3.2 L Carbon Dioxide Anion Gap 10 L 10 L POC Glucose Random Glucose 131 H Lactic Acid Lactic Acid F/U @ 2Hr Lactic Acid F/U @ 4Hr Calcium 8.3 L 8.0 L Phosphorus Magnesium AST Alkaline Phosphatase Ammonia B-Natriuretic Peptide Total Protein Albumin Urine Protein Urine Glucose (UA) Urine Blood Urine RBC Salicylates Urine Opiates Screen Urine Fentanyl Screen U Benzodiazepines Scrn U Marijuana (THC) Screen Crossmatch Microbiology: Microbiology 02/25/22 11:14 Blood - Venous Blood Culture - Final Staphylococcus aureus Peptoniphilus asaccharolyticus Propionibacterium acnes 02/27/22 10:41 Blood - Venous Blood Culture - Preliminary No growth after 48 hours. 02/27/22 10:51 Blood - Venous Blood Culture - Preliminary No growth after 48 hours. 02/25/22 11:14 Blood - Venous Blood Culture - Final Coag negative Staphylococcus Diagnostic Findings Chest x-ray: report reviewed and image reviewed CT scan - chest: report reviewed and image reviewed Assessment and Plan (1) Status post laryngectomy: Status: Acute (2) Laryngeal cancer: Status: Acute (3) Cardiac arrest: Status: Acute (4) Atelectasis: Status: Acute (5) Acute respiratory failure with hypoxia: Status: Acute Plan This patient with history of flare inject me for laryngeal cancer in 2018, Is status post acute, bleeding from the trachea, due to mechanical trauma and with background of active anticoagulation. Post cardiac arrest and successful resuscitation. He does have bibasilar atelectasis which probably accounts for his recurrent persistent hypoxemia, but he does not have any underlying chronic lung disease. Hypoxemia, secondary to relative hypoventilation of the lower lobes, and also may have had mild aspiration . Currently requiring 6 L/minute via trach mask. Recc . Try to wean down on O2, he does not have O2 at home and would be nice if we can take him off the oxygen before discharge. However if hypoxemia does persist then he will need O2 supplementation at home. Encouraged him to do deep breathing exercises. Keep him off anticoagulation at this time, but he would need to be monitored closely for any recurrence of DVT. CT scan of the neck has shown a 1.2 cm rounded density in the right side of the neck, this needs to be followed up as outpatient, with a PET scan. After discharge patient would contact his ENT surgeon at [facility], for follow-up . We will be glad to see him for follow-up in the Pulmonary office, as outpatient, as needed . Procedures Date of Service Date of Service: 03/04/22
[2022-03-04] MEDS: clonazePAM 0.5 MG TABLET PO ×2 (09:50→15:32)
[2022-03-04 11:20] VITALS: BP 99/60; PULSE 88; RESP 22; TEMP 37.1; O2SAT 90
[2022-03-04 12:16] VITALS: PULSE 104; PULSE 96; O2SAT 93
--- NOTE | 2022-03-04 14:02 | PM.DS ---
DS: Providers Provider Date of Service: 03/04/22 Date of admission: 02/25/22 13:43 Primary care physician: Maulik Shetty MD Consults: 03/03/22 09:29 Consult to Pulmonology Routine Consulting Provider: Kofi Alva Reason for consultation: mucus plugging, laryngectomy stoma w speaking valve DS: Diagnosis Discharge Diagnosis (1) Status post laryngectomy: Status: Acute (2) Laryngeal cancer: Status: Acute (3) Cardiac arrest: Status: Acute (4) Atelectasis: Status: Acute (5) Acute respiratory failure with hypoxia: Status: Acute (6) Mucus plugging of bronchi: Status: Acute (7) Massive hemoptysis: Status: Acute (8) Acidosis, lactic: Status: Acute DS: Summary Hospital Course Hospital Course: Admission note HPI ?61-year-old gentleman with underlying history of laryngeal cancer ( followed at [facility]) status post excision and radiation, with tracheal stoma and speaking valve (normally performing self-care on his stoma/speaking valve), with history of mucus plugging, also on DVT on anticoagulation admitted on 02/25/2022 after his son heard commotion when the patient was in bathroom? and found patient short of breath with large amount of blood.? On EMS arrival patient was noted to have hemoptysis and be significantly hypoxic.? He was intubated in the field with a 6.0 tube and brought to the emergency room where he was noted to be persistently hypoxic.? ET tube exchange was attempted, but patient required re-intubation further complicated by PEA cardiac arrest with ROSC after 4 rounds of CPR. Tracheostomy tube placed in the stoma and patient connected to the ventilatory support.? Patient's mentation noted to be at the baseline after completion of CPR.? Required initiation of other pressor support, covered with empiric broad-spectrum antibiotics, received 2 units of packed red blood cells.? His CT angiogram chest did not demonstrate pulmonary hemorrhage.? Patient was admitted to the intensive care unit. Hospital course a 61-year-old gentleman with PMHx of laryngeal cancer, underwent laryngectomy with chemo and radiation therapy who presents to the hospital for hemoptysis.? Upon changing ETT he had a PA arrest requiring CPR for 11 minutes with returning back to normal mentation after CPR.? Admitted to ICU. Massive hemoptysis on admission.No recurrence of attack. Eliquis still on hold and will be discontinued at time of discharge to be followed by his oncology team as ultrasound of lower extremities was negative for any DVT. Likely related to injury by brush use at home. Advised about different techniques but he insisted on doing what he used to do before with more precautions. Evaluated by pulmonology team who recommended to discontinue Eliquis for now. Developed acute hypoxic respiratory failure secondary to aspirating blood as Chest x-ray was concerning for atelectasis and Mucus plug as well. Treated with chest physical therapy, breathing exercises, Mucomyst nebulizer and Mucinex with good response as he was weaned off the oxygen. Evaluated for home oxygen but he maintain his oxygen level in mid 90s upon ambulating on room. Will be discharged home with no oxygen supplement. Post cardiac arrest Full recovery from cardiology call neurological standpoint History of DVT Was on Eliquis, after this massive hemorrhage will keep it on hold for now as he is considered in remission from cancer To be followed by his primary oncology team for further discussions Electrolyte imbalance Magnesium, potassium both repleted with good response. Will be discharged on magnesium supplement. Plan: Discontinue Eliquis for now, to be followed by your Oncology team. CT scan showed 1.2 cm level node that will need further assessment by a PET scan, to be followed by Oncology Continue breathing exercises Take magnesium as prescribed Mucinex prescribed to loosen the mucus secretions Time Spent with Patient Time attestation: Total time spent providing and/or coordinating discharge services: Discharge coordination time: Greater than 30 minutes Quality: Safe Use of Opioids Does Pt have an Active Cancer Diagnosis on the Problem List?: No Quality: Stroke Does the patient have a stroke diagnosis?: No Physical Exam Vital Signs: Vital Signs: Last Vital Signs Temp 98.7 F 03/04/22 11:20 Pulse 88 03/04/22 11:20 Resp 22 H 03/04/22 11:20 BP 99/60 03/04/22 11:20 Pulse Ox 90 L 03/04/22 11:20 O2 Del Method 03/04/22 11:20 O2 Flow Rate 5 03/04/22 03:33 FiO2 30 03/04/22 03:33 BMI result Body Mass Index 29.9 Const: Other: Constitutional : Alert, oriented, not in distress Neck : Normal inspection, Supple, Stoma clean with no surrounding erythema or drainage Cardiovascular : RRR, no JVP, no lower extremity edema Respiratory : fair bilateral air entry, no wheezes or crackles noted Gastrointestinal: soft, lax, Normal bowel sounds, Non tender Skin : Warm, Dry Neurological : Alert & oriented x3, No focal deficit , CN 2-12 within normal DS: Data Data Completed and Pending Labs on day of discharge: Laboratory Results - last 24 hr 03/04/22 05:33 Sodium 133 L Potassium 3.2 L Chloride 98 Carbon Dioxide 28 Anion Gap 10 L BUN 14 Creatinine 0.77 Estim Creat Clear Calc 119.1 Estimated GFR > 60 Random Glucose 101 Calcium 8.0 L Imaging Chest x-ray: Radiologist's impression: ITS Impressions Chest X-Ray 02/25/22 11:20 IMPRESSION: No definite acute intrathoracic disease. Mediastinum appears slightly widened I suspect secondary to supine position. Abdomen/Pelvis CT 02/25/22 12:47 IMPRESSION: 1. No significant acute intra-abdominal/pelvic abnormality. Mild mesenteric haziness is nonspecific. No focal fluid collection. 2. Hepatic steatosis. 3. Bilateral renal cyst demonstrating benign features not requiring follow-up. Nonobstructing left intrarenal calculus/calcification. 4. Mild distal colonic diverticulosis without evidence for acute diverticulitis. 5. Mildly prominent retroperitoneal and external iliac lymph nodes are not pathologically enlarged and may be reactive. 6. Left adrenal nodule is indeterminate, but statistically likely represents an adrenal adenoma. Chest CTA 02/25/22 12:47 IMPRESSION: 1. A cause for hemorrhage around the patient's tracheostomy site has not been found and there is no evidence of any active bleeding. No pseudoaneurysms or hypertrophied bronchial arteries are detected. 2. Bilateral lower lobe collapse/consolidation with right upper lobe suprahilar infiltrate as well. 3. Possible left-sided hydronephrosis as described above. Fleischner guidelines were followed. Head CT 02/25/22 12:47 IMPRESSION: No acute intracranial pathology. Soft Tissue Neck CT 02/25/22 22:29 IMPRESSION: - A tracheostomy tube remains in place. This study is not diagnostic in assessing for sources of bleeding at the tracheostomy site as it is not an arterial phase CTA of the neck. There is edema and hematoma along the periphery of the tracheostomy insertion as well as a few small foci of subcutaneous gas. Stable soft tissue thickening along the periphery of the trachea below the tracheostomy tube resulting in narrowing of the trachea in this location. - Postoperative findings status post total laryngectomy and neopharynx formation. Nonspecific soft tissue thickening along the periphery of the neopharynx and nonspecific edema dorsal to the neopharynx. Findings may be posttreatment related. Comparison to any outside imaging if available would be helpful in further assessment. - There is a nonspecific rounded 1.2 cm long transaxial dimension lymph node within level IIA on the left. Given rounded morphology and history of total laryngectomy, consider PET to exclude a metastatic lymph node. - Multilevel cervical spondylosis including a disc osteophyte complex at C3-C4 resulting in suspected severe central canal stenosis and mass effect on the cervical spinal cord that can be correlated for clinical signs of cervical myelopathy and follow-up with MRI of the cervical spine as clinically indicated. Chest X-Ray 02/28/22 00:15 IMPRESSION: Patchy bibasilar opacities favor atelectasis. Pneumonia not excluded. Venous Duplex 02/28/22 10:42 IMPRESSION: Several hypoechoic, reportedly from nodules in the bilateral calves measuring up to 2.4 cm in the right and 2.1 cm on the left, which on cine images appear to be contiguous with varicosities suggesting thrombosed superficial varicose veins, however recommend correlation with clinical exam and given malignancy consider short interval follow-up subsequent treatment to assess for resolution stability as another differential consideration could include lymph nodes. No DVT demonstrated in the bilateral lower extremity. Chest X-Ray 03/01/22 14:27 IMPRESSION: Improving atelectasis or small infiltrates at the lung bases Discharge Plan Discharge Patient Disposition: Home, Self-Care Discharge Diagnosis: Hypoxic respiratory failure Hemoptysis Atelactasis Referrals: Maulik Shetty MD [Primary Care Provider] - 1 Week Discharge Medications: New magnesium oxide 400 mg (241.3 mg magnesium) Tablet 400 mg PO BID 30 Days Qty: 60 0RF guaifenesin [Mucinex] 600 mg Tablet Extended Release 12hr 1,200 mg PO BEDTIME 30 Days Qty: 60 0RF Continued levothyroxine 75 mcg tablet 1 tab PO DAILY amlodipine 10 mg tablet 1 tab PO DAILY gabapentin 100 mg capsule 1 cap PO TID ipratropium bromide 42 mcg (0.06 %) spray,non-aerosol 2 spray intranasal TID PRN (Reason: Allergy Symptoms) doxazosin 2 mg tablet 1 tab PO DAILY oxycodone 10 mg tablet 10 mg PO 7XD PRN (Reason: Pain) Discontinued Eliquis 5 mg tablet 1 tab PO BID Discharge Orders: Discharge Order (Routine); Ordered 03/04/22 Ordered By: Homer Arroyo Diet: Advance to usual diet Activity on Discharge: As tolerated Stand Alone Forms: Patient Portal Discharge page Care Plan Goals: Read below Health Concerns: Read below Plan of Treatment: Read below Assessment: You were admitted to the hospital for evaluation of coughing clot. Believed to be secondary to mechanical trauma and being on blood thinners. Complicated with cardiac arrest with successful resuscitation. Noticed to have atelectasis at the bases of your lung with increase mucus secretions treated with chest physical therapy, mucolytics and oxygen supplement which was weaned down to room air as you were able to ambulate and maintaining her oxygen levels in the 90s. Evaluated by heart coordinator who recommended outpatient follow-up and to hold on Eliquis for the time being. Discontinue Eliquis for now, to be followed by your Oncology team. CT scan showed 1.2 cm level node that will need further assessment by a PET scan, to be followed by Oncology Continue breathing exercises Take magnesium as prescribed Mucinex prescribed to loosen the mucus secretions
--- NOTE | 2022-03-04 14:10 | MHC.CM.PN ---
Patient has been medically cleared for dc to home today, self care. IMM addressed with Patient at bedside and original has been given to him and a copy has been placed on the chart.
== END 2022-03-04 16:00 | disposition home or self-care (01) | DRG 813 ==
LOC: HO.ED 13:15 → HO.EDOVER 13:47 → HO.ICU 15:21 → HO.IMC 03-02 09:40
PROVIDERS: Physician Assistant Medical; Registered Nurse Community Health; Admitting Provider Internal Medicine Pulmonary Disease; Emergency Provider Emergency Medicine; PCP Internal Medicine; Visit Provider Student in an Organized Health Care Education/Training Program
DX: D68.32 Hemorrhagic disorder due to extrinsic circulating anticoagulants (principal); I46.9 Cardiac arrest, cause unspecified; J96.01 Acute respiratory failure with hypoxia; E87.2 Acidosis; R04.2 Hemoptysis; J98.11 Atelectasis; E66.9 Obesity, unspecified; L50.0 Allergic urticaria; T45.515A Adverse effect of anticoagulants, initial encounter; Z86.718 Personal history of other venous thrombosis and embolism; Z92.3 Personal history of irradiation; T36.0X5A Adverse effect of penicillins, initial encounter; Z68.29 Body mass index [BMI] 29.0-29.9, adult; Z20.822 Contact with and (suspected) exposure to COVID-19; E87.6 Hypokalemia; E83.42 Hypomagnesemia; F41.9 Anxiety disorder, unspecified; E83.39 Other disorders of phosphorus metabolism; Z90.02 Acquired absence of larynx; Z93.0 Tracheostomy status; Z85.21 Personal history of malignant neoplasm of larynx; Z88.1 Allergy status to other antibiotic agents; Z79.01 Long term (current) use of anticoagulants; Z79.890 Hormone replacement therapy; Z79.899 Other long term (current) drug therapy
CPT/HCPCS: 36415; 36600; 70450; 70491; 71045; 71275; 74177; 80048; 80053; 80143; 80179; 80202; 80307; 81001; 81003; 82040; 82140; 82803; 82947; 83605; 83735; 83880; 84100; 84484; 85007; 85025; 85027; 86704; 86706; 86803; 86850; 86900; 86901; 86920; 87040; 87076; 87077; 87147; 87185; 87186; 87205; 87340; 87502; 87635; 93005; 93306; 93970; 94002; 94640; 94799; 96361; 96365; 96366; 96375; 97116; 97162; 99285; C1758; J0171; J0282; J1170; J1200; J1940; J1956; J2060; J2250; J2543; J3010; J3260; J3370; P9016; Q9967

== ENCOUNTER 2022-03-28 08:54 | Emergency (ER) | payer MEDICARE, SELFPAY ==
--- NOTE | ~2022-03-28 | XR_ITS ---
EXAMINATION: PORTABLE CHEST 1 VIEW CLINICAL INFORMATION: acidosis . COMPARISON: Images earlier today. TECHNIQUE: Portable frontal view of the chest was obtained. FINDINGS: Patient is intubated via the tracheostomy tube with a small endotracheal tube that extends approximately 7.8 cm past the chuy into the distal right mainstem bronchus. This could be significantly withdrawn if needed. Minimal increased basilar markings may reflect component of atelectasis. No significant effusion, edema, or pneumothorax. Cardiac silhouette within normal limits for size with mildly tortuous aorta. XR/XR chest 1V IMPRESSION: Intubated by the tracheostomy stoma. The small endotracheal tube does again extend into the right mainstem bronchus approximately 7.8 cm distal to the chuy. This could be partially withdrawn as needed. This critical result was discussed with Dr. Carr at 03/28/2022 10:29 AM and it was ascertained that the content and urgency of the report was understood at the time of direct communication.
--- NOTE | ~2022-03-28 | XR_ITS ---
EXAMINATION: PORTABLE CHEST 1 VIEW CLINICAL INFORMATION: Intubation. COMPARISON: 03/01/2022. TECHNIQUE: Portable frontal view of the chest was obtained. FINDINGS: 3 portable supine films the chest obtained. Patient has a tracheostomy tube in place but appears to be intubated through the tracheostomy tube with the small endotracheal tube extending approximately 7 cm into the right mainstem bronchus overlying the proximal aspect of the right interlobar branch. This could be partially withdrawn. Hazy airspace disease more so the left lung possibly due to underexpansion. No overt edema or pneumothorax. Cardiac silhouette within normal limits for size with a slightly tortuous aorta. XR/XR chest 1V IMPRESSION: Patient appears to be intubated through the tracheostomy stoma with the tip of a small endotracheal tube extending into the right mainstem bronchus likely overlying the proximal aspect of the right interlobar branch 7 cm below the chuy. This could be partially withdrawn. This critical result was discussed with Dr Carr at 03/28/2022 9:53 AM and it was ascertained that the content and urgency of the report was understood at the time of direct communication.
[2022-03-28 09:08] VITALS: PULSE 66
--- NOTE | 2022-03-28 09:25 | ED_ITS ---
HPI - CPR General Chief Complaint: Cardiac Arrest/CPR Stated Complaint: Cardiac Arrest Time Seen by Provider: 03/28/22 08:57 Source: EMS Mode of arrival: EMS History of Present Illness HPI narrative: this is 61 years old male with history of laryngeal cancer and status post tracheostomy was brought in by a qa developer in full cardiac arrest. Patient was tried to clean the day tracheostomy amnd start to bleed from the stoma, he arrived in full cardiac arrest, received epinephrine in the field. We did another 2 minutes of CPR in the emergency room given epinephrine as well with return to spontaneous circulation. The patient is unresponsive intubated via 6 0 ET tube through the stoma MD complaint: other (as above) Place: home Bystander CPR performed: No AED applied by bystander/block stacker: No Shock advised: No Initial findings in the field: unresponsive ROSC in the field: No Associated injuries: No Treatments prior to arrival: intubation, BMV, chest compressions and epinephrine mgs # (2) Related Data Home Medications Medication Instructions Recorded Confirmed amlodipine 10 mg tablet 1 tab PO DAILY 02/25/22 02/25/22 doxazosin 2 mg tablet 1 tab PO DAILY 02/25/22 02/25/22 gabapentin 100 mg capsule 1 cap PO TID 02/25/22 02/25/22 ipratropium bromide 42 mcg (0.06 2 spray intranasal TID PRN Allergy 02/25/22 02/25/22 %) nasal spray Symptoms levothyroxine 75 mcg tablet 1 tab PO DAILY 02/25/22 02/25/22 oxycodone 10 mg tablet 10 mg PO 7XD PRN Pain 02/25/22 02/25/22 Previous Rx's Medication Instructions Recorded guaifenesin 600 mg tablet, 1,200 mg PO BEDTIME 30 days #60 03/04/22 extended release 12 hr (Mucinex) tabs magnesium oxide 400 mg (241.3 mg 400 mg PO BID 30 days #60 tabs 03/04/22 magnesium) tablet Allergies Allergy/AdvReac Type Severity Reaction Status Date / Time piperacillin [From Zosyn] Allergy Rash Verified 02/25/22 13:06 tazobactam [From Zosyn] Allergy Rash Verified 02/25/22 13:06 Review of Systems Review of Systems: Yes Unobtainable due to mental condition [facility] Past Medical History Medical History Atelectasis Cardiac arrest DVT (deep venous thrombosis) HTN (hypertension) Hypothyroidism Laryngeal cancer Surgical History (Updated 03/12/22 @ 00:03 by Cachorro Bledsoe) Status post laryngectomy Social History Social History Patient Tobacco Use Status: Tobacco use Unknown Advance Directives: Yes Advance Directives on File: Yes Advance Directives Date on File: 03/05/22 service: No Current occupational status: disabled Physical Exam Vital Signs: Vital Signs: Last Vital Signs Pulse 66 03/28/22 09:08 Const: General: other ( unresponsive) Nutritional Appearance: average body habitus Eyes: Other: pupils are fixed and dilated Neck: Other: he has a stoma with the 6 0 ET tube Chest: Chest palpation & inspection: normal inspection of the chest Resp: Auscultation: clear to auscultation bilaterally Cardio: Other: at arrival no cardiac activity but after CPR after CPR and rosc 80 regular rate Rhythm: regular rhythm GI: Inspection: Yes normal to inspection Palpation (GI): Soft to palpation Neuro: Other: unresponsive Course Reevaluation(s) Reevaluation #1: spoke with our ICU attending Sr Chavezp no ENT in this hospital reccomend transfer Spoke with ICU team at [facility] accepted by Dr Metzger,spoke with his benefit of transfer will outhweight risks Remain in critical condition Oxygenation good ,blood pressure better Reevaluation #2: [facility] transport team here to take the pt , at bed side ETT retracted 5 cm,remained in critical condition acidotic, understanfd that the pt is critical MDM - Cardiac Arrest/CPR Lab Data Result diagrams: 03/28/22 09:20 03/28/22 09:20 Labs: Lab Results 03/28/22 03/28/22 03/28/22 Range/Units 09:01 09:20 09:20 WBC 13.5 H (4.8-10.8) X10*3/uL RBC 3.60 L (4.60-5.80) X10*6/uL Hgb 10.9 L (14.0-18.0) g/dl Hct 35.3 L (42.0-52.0) % MCV 98.1 H (80.0-98.0) fL MCH 30.3 (27.0-33.0) pg MCHC 30.9 L (31.0-36.0) g/dl RDW 13.1 (11.0-16.0) % Plt Count 250 (160-400) X10*3/uL MPV 9.2 L (9.4-12.4) fL Immature Gran % (Auto) 19.2 H (0.0-0.4) % Neut % (Auto) 54.2 (45-73) % Lymph % (Auto) 12.1 L (20-40) % [place] % (Auto) 11.5 H (2-11) % Eos % (Auto) 2.1 (0-4) % Baso % (Auto) 0.9 (0-2) % Lymph # (Auto) 1.6 (1.2-4.9) X10*3/uL [place] # (Auto) 1.6 H (0.1-1.2) X10*3/uL Eos # (Auto) 0.3 (0.0-0.4) X10*3/uL Baso # (Auto) 0.1 (0.0-0.2) X10*3/uL Abs Immat Gran (auto) 2.60 H (0.00-0.03) X10*3/uL Absolute Neuts (auto) 7.3 (2.0-8.3) x10*3/uL Absolute Nucleated RBC 0.000 (0.0-0.012) X10*3/uL Nucleated RBC % (auto) 0.0 (0.0-0.2) /100WBC PT 14.6 H (10.0-13.1) SEC INR 1.3 H (0.9-1.1) O2 Saturation % ABG pH at Pt Temp (7.35-7.45) ABG pCO2 at Pt Temp (32-45) mmHg ABG pO2 at Pt Temp (83-108) mmHg ABG HCO3 (22-26) mmol/L ABG Base Excess (Actual) mmol/L VBG pH (7.32-7.43) VBG pCO2 mmHg VBG pO2 mmHg VBG HCO3 (22-26) mmol/L VBG O2 Saturation % VBG Base Excess mmol/L Sodium (135-145) mmol/L Potassium (3.3-5.1) mmol/L Chloride (96-108) mmol/L Carbon Dioxide (22-29) mmol/L Anion Gap (12-20) BUN (9-16) mg/dL Creatinine (0.5-1.4) mg/dL Estim Creat Clear Calc Estimated GFR Random Glucose (60-115) mg/dL Calcium (8.4-10.2) mg/dL Total Bilirubin (0.0-1.0) mg/dL AST (5-37) U/L ALT (0-40) U/L Alkaline Phosphatase (39-117) U/L Troponin I High Sens (<3.5-35.0) ng/L Total Protein (6.5-8.0) g/dL Albumin (3.5-5.0) g/dL COVID-19 ([facility]) (Negative) COVID-19 Clin Com Blood Type TNP Antibody Screen TNP Crossmatch See Detail 03/28/22 03/28/22 03/28/22 Range/Units 09:20 09:20 09:24 WBC (4.8-10.8) X10*3/uL RBC (4.60-5.80) X10*6/uL Hgb (14.0-18.0) g/dl Hct (42.0-52.0) % MCV (80.0-98.0) fL MCH (27.0-33.0) pg MCHC (31.0-36.0) g/dl RDW (11.0-16.0) % Plt Count (160-400) X10*3/uL MPV (9.4-12.4) fL Immature Gran % (Auto) (0.0-0.4) % Neut % (Auto) (45-73) % Lymph % (Auto) (20-40) % [place] % (Auto) (2-11) % Eos % (Auto) (0-4) % Baso % (Auto) (0-2) % Lymph # (Auto) (1.2-4.9) X10*3/uL [place] # (Auto) (0.1-1.2) X10*3/uL Eos # (Auto) (0.0-0.4) X10*3/uL Baso # (Auto) (0.0-0.2) X10*3/uL Abs Immat Gran (auto) (0.00-0.03) X10*3/uL Absolute Neuts (auto) (2.0-8.3) x10*3/uL Absolute Nucleated RBC (0.0-0.012) X10*3/uL Nucleated RBC % (auto) (0.0-0.2) /100WBC PT (10.0-13.1) SEC INR (0.9-1.1) O2 Saturation % ABG pH at Pt Temp (7.35-7.45) ABG pCO2 at Pt Temp (32-45) mmHg ABG pO2 at Pt Temp (83-108) mmHg ABG HCO3 (22-26) mmol/L ABG Base Excess (Actual) mmol/L VBG pH 6.90 L* (7.32-7.43) VBG pCO2 88 mmHg VBG pO2 70 mmHg VBG HCO3 18 L (22-26) mmol/L VBG O2 Saturation 74.0 % VBG Base Excess -16.1 mmol/L Sodium 134 L (135-145) mmol/L Potassium 3.2 L (3.3-5.1) mmol/L Chloride 100 (96-108) mmol/L Carbon Dioxide 18 L (22-29) mmol/L Anion Gap 19 (12-20) BUN 8 L (9-16) mg/dL Creatinine 0.83 (0.5-1.4) mg/dL Estim Creat Clear Calc TNP Estimated GFR > 60 Random Glucose 164 H D (60-115) mg/dL Calcium 7.4 L D (8.4-10.2) mg/dL Total Bilirubin 0.4 (0.0-1.0) mg/dL AST 26 D (5-37) U/L ALT 14 (0-40) U/L Alkaline Phosphatase 154 H D (39-117) U/L Troponin I High Sens 3.9 D (<3.5-35.0) ng/L Total Protein 5.0 L (6.5-8.0) g/dL Albumin 2.8 L (3.5-5.0) g/dL COVID-19 ([facility]) (Negative) COVID-19 Clin Com Blood Type Antibody Screen Crossmatch 03/28/22 03/28/22 Range/Units 09:48 09:51 WBC (4.8-10.8) X10*3/uL RBC (4.60-5.80) X10*6/uL Hgb (14.0-18.0) g/dl Hct (42.0-52.0) % MCV (80.0-98.0) fL MCH (27.0-33.0) pg MCHC (31.0-36.0) g/dl RDW (11.0-16.0) % Plt Count (160-400) X10*3/uL MPV (9.4-12.4) fL Immature Gran % (Auto) (0.0-0.4) % Neut % (Auto) (45-73) % Lymph % (Auto) (20-40) % [place] % (Auto) (2-11) % Eos % (Auto) (0-4) % Baso % (Auto) (0-2) % Lymph # (Auto) (1.2-4.9) X10*3/uL [place] # (Auto) (0.1-1.2) X10*3/uL Eos # (Auto) (0.0-0.4) X10*3/uL Baso # (Auto) (0.0-0.2) X10*3/uL Abs Immat Gran (auto) (0.00-0.03) X10*3/uL Absolute Neuts (auto) (2.0-8.3) x10*3/uL Absolute Nucleated RBC (0.0-0.012) X10*3/uL Nucleated RBC % (auto) (0.0-0.2) /100WBC PT (10.0-13.1) SEC INR (0.9-1.1) O2 Saturation 97.0 % ABG pH at Pt Temp 6.86 L* (7.35-7.45) ABG pCO2 at Pt Temp 103 H* (32-45) mmHg ABG pO2 at Pt Temp 152 H (83-108) mmHg ABG HCO3 19 L (22-26) mmol/L ABG Base Excess (Actual) -16.1 mmol/L VBG pH (7.32-7.43) VBG pCO2 mmHg VBG pO2 mmHg VBG HCO3 (22-26) mmol/L VBG O2 Saturation % VBG Base Excess mmol/L Sodium (135-145) mmol/L Potassium (3.3-5.1) mmol/L Chloride (96-108) mmol/L Carbon Dioxide (22-29) mmol/L Anion Gap (12-20) BUN (9-16) mg/dL Creatinine (0.5-1.4) mg/dL Estim Creat Clear Calc Estimated GFR Random Glucose (60-115) mg/dL Calcium (8.4-10.2) mg/dL Total Bilirubin (0.0-1.0) mg/dL AST (5-37) U/L ALT (0-40) U/L Alkaline Phosphatase (39-117) U/L Troponin I High Sens (<3.5-35.0) ng/L Total Protein (6.5-8.0) g/dL Albumin (3.5-5.0) g/dL COVID-19 ([facility]) Negative (Negative) COVID-19 Clin Com See Note Blood Type Antibody Screen Crossmatch Imaging Data Chest x-ray: Radiologist's impression: CLINICAL INFORMATION: acidosis . COMPARISON: Images earlier today. TECHNIQUE: Portable frontal view of the chest was obtained. FINDINGS: Patient is intubated via the tracheostomy tube with a small endotracheal tube that extends approximately 7.8 cm past the chuy into the distal right mainstem bronchus. This could be significantly withdrawn if needed. Minimal increased basilar markings may reflect component of atelectasis. No significant effusion, edema, or pneumothorax. Cardiac silhouette within normal limits for size with mildly tortuous aorta. XR/XR chest 1V IMPRESSION: Intubated by the tracheostomy stoma. The small endotracheal tube does again extend into the right mainstem bronchus approximately 7.8 cm distal to the chuy. This could be partially withdrawn as needed. ? This critical result was discussed with Dr. Carr at 03/28/2022 10:29 AM and it was ascertained that the content and urgency of the report was understood at the time of direct communication. ? Procedures Central Line Placement Right Femoral: Prep: gloves Central Line Prep: Povidone-Iodine 1% Ultrasound Used for Placement: Yes Central Line Lumen Inserted: triple Post Procedure: sutured in place Complications: none Critical Care Time Critical Care Time Critical Care Time: Yes Total Critical Care Time: 60 Attestation: taking care of the pt /speaking to EMS and Therapeutic Activities Services Worker here and at [facility] Discharge Plan Discharge Clinical Impression: Cardiac arrest, Hemoptysis, Metabolic acidosis Patient Disposition: er [facility] Transfer Details: requested by bethany Navarrete team from [facility] here to take the pt Prescriptions: No Action levothyroxine 75 mcg tablet 1 tab PO DAILY amlodipine 10 mg tablet 1 tab PO DAILY gabapentin 100 mg capsule 1 cap PO TID ipratropium bromide 42 mcg (0.06 %) spray,non-aerosol 2 spray intranasal TID PRN (Reason: Allergy Symptoms) doxazosin 2 mg tablet 1 tab PO DAILY oxycodone 10 mg tablet 10 mg PO 7XD PRN (Reason: Pain) magnesium oxide 400 mg (241.3 mg magnesium) Tablet 400 mg PO BID 30 Days Qty: 60 0RF guaifenesin [Mucinex] 600 mg Tablet Extended Release 12hr 1,200 mg PO BEDTIME 30 Days Qty: 60 0RF
[2022-03-28 09:27] LABS: MANUAL DIFF FLAG NO
[2022-03-28 09:30] LABS: Basophils Absolute Auto 0.1 X10*3/uL (0.0-0.2); Basophils Percent Auto 0.9 % (0-2); Eosinophils Absolute Auto 0.3 X10*3/uL (0.0-0.4); Eosinophils Percent Auto 2.1 % (0-4); Hematocrit 35.3 % (42.0-52.0); Hemoglobin 10.9 g/dl (14.0-18.0); Imm Gran Pct Auto 19.2 % (0.0-0.4); LEFT SHIFT? 1; Lymphocytes Absolute Auto 1.6 X10*3/uL (1.2-4.9); Lymphocytes Percent Auto 12.1 % (20-40); Mean Corpuscular HGB Conc 30.9 g/dl (31.0-36.0); Mean Corpuscular Hemoglobin 30.3 pg (27.0-33.0); Mean Corpuscular Volume 98.1 fL (80.0-98.0); Mean Platelet Volume 9.2 fL (9.4-12.4); Monocytes Absolute Auto 1.6 X10*3/uL (0.1-1.2); Monocytes Percent Auto 11.5 % (2-11); Neutrophils Absolute Auto 7.3 x10*3/uL (2.0-8.3); Neutrophils Percent Auto 54.2 % (45-73); Platelet Count 250 X10*3/uL (160-400); Red Cell Distribution Width 13.1 % (11.0-16.0); SCAN SMEAR FLAG 1; White Blood Count 13.5 X10*3/uL (4.8-10.8)
[2022-03-28 09:36] LABS: INTERNATIONAL NORM RATIO 1.3 (0.9-1.1); Prothrombin Time 14.6 SEC (10.0-13.1)
[2022-03-28 09:37] LABS: Venous Blood Gas Refer to POC result
[2022-03-28 09:38] LABS: VBG Base Excess -16.1 mmol/L; VBG HCO3 18 mmol/L (22-26); VBG pCO2 88 mmHg; VBG pO2 70 mmHg
[2022-03-28 09:51] LABS: Alanine Aminotransferase 14 U/L (0-40); Albumin Level 2.8 g/dL (3.5-5.0); Alkaline Phosphatase 154 U/L (39-117); Anion Gap 19 (12-20); Aspartate Amino Transferase 26 U/L (5-37); Bilirubin Total 0.4 mg/dL (0.0-1.0); Blood Urea Nitrogen 8 mg/dL (9-16); Calcium 7.4 mg/dL (8.4-10.2); Carbon Dioxide 18 mmol/L (22-29); Chloride 100 mmol/L (96-108); Estimated Glomerular Filt Rate > 60; Glucose Random 164 mg/dL (60-115); Potassium 3.2 mmol/L (3.3-5.1); Sodium 134 mmol/L (135-145)
[2022-03-28 09:54] LABS: Troponin-I High Sensitivity 3.9 ng/L (<3.5-35.0)
[2022-03-28 09:54] LABS: ABG Refer to POC result
[2022-03-28 10:02] LABS: ABG Base Excess -16.1 mmol/L; ABG HCO3 19 mmol/L (22-26); ABG pCO2 103 mmHg (32-45); ABG pH 6.86 (7.35-7.45); ABG pO2 152 mmHg (83-108)
--- NOTE | 2022-03-28 10:08 | W.PM.CCCN ---
History of Present Illness Data of Consult Service Date: 03/28/22 Requesting physician: Ze Carr Primary Care Provider: Maulik Shetty MD HPI I was asked by Dr. Carr to look at Mr. Mcgee who was BIBA to the ED after massive hemoptysis and cardiac arrest at home. From my critical care progress note dated 03/01/2022: ?The patient is well known to me from ICU stay here last month after a similar incident.? The patient is a 61-year-old gentleman with PMHx of laryngeal cancer, underwent laryngectomy (? 2018) at the [facility] by lamp tester and inspector Dr. Roberto Ramos at [facility] ([phone] or [phone]), s/p chemo and XRT.? He has a laryngectomy stoma w TEP speaking valve.? Does self-care on his stoma/speaking valve.? Uses a Juliana tube 3 hours nightly.? He spends a good many hours of the day in the bathroom doing self care on the stoma and managing copious mucus production with a brush (similar to a test tube brush). ?They have tried a suction machine at home, but for unclear reasons were unable to get it to work and to satisfactorilly clear his copious mucus production.? Otherwise he lives at home with his , he is fully functional and independent, even drives occasionally.? He eats a regular diet, drinks water with no problem.? Also has h/o HTN and DVT, was on Eliquis.? He has a lot of pain and takes up to 7 oxycodone 10 mg pills daily.? His Negin (cell [phone]) is very knowledgeable about his medical hx. The patient was BIBA on 02/25/2022 after he had massive hemoptysis at home.? EMS was called to the scene.? They reported what they thought was maybe a liter of blood on the floor.? 6.0 ETT placed in the stoma.? He was BIBA to the ED.? In the ED, a fiberoptic scope confirmed placement in the trachea.? A change of ETT was attempted using FOB and boughie, resulting in a PEA arrest.? Finally a tracheostomy tube was placed in his stoma.? The patient had ROSC after 11 minutes CPR, 2 rounds of epi.? No tracheal bleeding was noted on inspection of the trachea using FOB.? The patient was noted to be mentating normally after completion of CPR.? He was given empiric broad-spectrum antibiotics, and received 2 units of packed red blood cells.? Chest CT angiogram did not demonstrate pulmonary hemorrhage.? The patient was admitted to the intensive care unit. The patient underwent a CT of his neck which was notable for the presence of his tracheoesophageal puncture valve.? There was also a nonspecific rounded 1.2 cm lymph node on the left; consider PET to exclude a metastatic lymph node. The large volume hemoptysis was thought likely secondary to mechanical trauma due to the clearance of his stoma with the brush by the patient, on top of anticoagulation with Eliquis.? By the next day (February 26), the patient was off the vent, on a trach collar.? The patient did well and was discharged from the ICU on March 01.? We placed mult calls to D the patient's lamp tester and inspector, Dr. Ramos at [facility] and never got a call back.? Eliquis and pharmacologic DVT prophylaxis were d/c?d. I talked to the patient at length about the risk of using the brush vs a suction catheter, in regards to causing hemorrhage.? I cautioned him at length that the brush may have been the cause of the hemoptysis and that it might be advisable to switch to a suction catheter.? He understood ?and appreciated my concern, but he insisted that the suction catheters just do not work for him, and that he has to use the brush.? I have told him that that is acceptable to me, as long as he understood the risks, which he insisted that he did. At that admission, I did discuss with Dr. Quiroz, our ACID PU[employer] OPERATOR, the inadvisability of admitting this kind of patient to our facility, without thoracic or ENT coverage, for exactly the reason represented by the patient's events of today.? In my opinion, admitting him here would be pure folly.? I have advised Dr. Carr that the patient should be transferred to an appropriate facility.? That is being arranged. Time (including d/w Dr. Carr, exam in the ED, and review of the medical record; majority non [id number]):? 30 min. [facility] Past Medical History Medical History Atelectasis Cardiac arrest DVT (deep venous thrombosis) HTN (hypertension) Hypothyroidism Laryngeal cancer Surgical History Surgical History (Updated 03/12/22 @ 00:03 by Cachorro Bledsoe) Status post laryngectomy Social History Social History Patient Tobacco Use Status: Tobacco use Unknown Advance Directives: Yes Advance Directives on File: Yes Advance Directives Date on File: 03/05/22 service: No Current occupational status: disabled Meds Allergies Allergy/AdvReac Type Severity Reaction Status Date / Time piperacillin [From Zosyn] Allergy Rash Verified 02/25/22 13:06 tazobactam [From Zosyn] Allergy Rash Verified 02/25/22 13:06 Active Medications: Current Medications Sodium Bicarbonate 50 meq/ (Dextrose) 1,000 mls @ 150 mls/hr IV .[id number] [facility] Home Medications Medication Instructions Recorded Confirmed Last Taken Type amlodipine 10 mg tablet 1 tab PO DAILY 02/25/22 02/25/22 Unknown History doxazosin 2 mg tablet 1 tab PO DAILY 02/25/22 02/25/22 Unknown History gabapentin 100 mg capsule 1 cap PO TID 02/25/22 02/25/22 Unknown History ipratropium bromide 42 mcg (0.06 2 spray intranasal TID PRN Allergy 02/25/22 02/25/22 Unknown History %) nasal spray Symptoms levothyroxine 75 mcg tablet 1 tab PO DAILY 02/25/22 02/25/22 Unknown History oxycodone 10 mg tablet 10 mg PO 7XD PRN Pain 02/25/22 02/25/22 Unknown History Physical Exam Vital Signs: Vital Signs: Last Vital Signs Pulse 66 03/28/22 09:08 Results Labs CBC & Chem 7: 03/28/22 09:20 03/28/22 09:20 Labs: Short CBC 03/28/22 Range/Units 09:20 WBC 13.5 H (4.8-10.8) X10*3/uL Hgb 10.9 L (14.0-18.0) g/dl Hct 35.3 L (42.0-52.0) % Plt Count 250 (160-400) X10*3/uL BMP 03/28/22 09:20 Sodium 134 L Potassium 3.2 L Chloride 100 Carbon Dioxide 18 L BUN 8 L Creatinine 0.83 Calcium 7.4 L D Liver Function 03/28/22 Range/Units 09:20 Total Bilirubin 0.4 (0.0-1.0) mg/dL AST 26 D (5-37) U/L ALT 14 (0-40) U/L Alkaline Phosphatase 154 H D (39-117) U/L Albumin 2.8 L (3.5-5.0) g/dL
[2022-03-28] MEDS: Midazolam HCl/PF 2 MG/2 ML VIAL IVPUSH (10:10)
[2022-03-28] MEDS: Sodium Bicarbonate 8.4% 50 MEQ in Dextrose 5 % 950 ML 150 MEQ IV (10:13)
[2022-03-28] MEDS: Sodium Bicarbonate 8.4% 50 MEQ/50 ML SYRINGE IVPUSH (10:15)
[2022-03-28 10:17] LABS: COVID-19 Test Negative (Negative)
[2022-03-28] MEDS: fentaNYL citrate/PF 100 MCG/2 ML VIAL IVPUSH ×2 (11:00→11:01)
[2022-03-28] MEDS: Ketamine HCl/NS 100 MG/10 ML SYRINGE 400 MG IVPUSH (11:00)
--- NOTE | 2022-03-28 11:33 | PC.NURSE ---
rn to rn with Savannah at [facility], [facility] [phone] needs transfer summary faxed to [phone]
[2022-03-31 07:23] LABS: Glucose, Whole Blood 139 mg/dL (60-115)
== END 2022-03-28 16:51 | disposition short-term general hospital (02) ==
PROVIDERS: Nurse Practitioner Family; Emergency Provider Emergency Medicine; PCP Internal Medicine
DX: I46.9 Cardiac arrest, cause unspecified (principal); R04.2 Hemoptysis; E87.2 Acidosis; Z20.822 Contact with and (suspected) exposure to COVID-19; I10 Essential (primary) hypertension; C32.9 Malignant neoplasm of larynx, unspecified; Z86.718 Personal history of other venous thrombosis and embolism; Z93.0 Tracheostomy status
CPT/HCPCS: 36415; 36556; 71045; 80053; 82803; 82947; 84484; 85025; 85610; 86900; 86901; 86920; 87635; 96374; 96375; 96376; 99285; J0171; J0461; J2250; J3010; P9016